=== PATIENT | female | born 1935 | race Caucasian/White ===

== ENCOUNTER 2021-07-21 11:30 | Outpatient (CLI) | payer MEDICARE | END 2021-07-21 11:31 | disposition critical access hospital (66) | LOC: EMS 11:30 | DX: M54.9 Dorsalgia, unspecified (principal); M79.622 Pain in left upper arm | CPT/HCPCS: A0425; A0429 ==

== ENCOUNTER 2021-07-21 11:50 | Emergency (ER) | payer MEDICARE, OTHER ==
[2021-07-21 13:07] LABS: BASOPHILS % (AUTO) 0.5 %; EOSINOPHILS # (AUTO) 0.2 10^3/uL (0.0-0.7); EOSINOPHILS % (AUTO) 2.4 %; HCT - HEMATOCRIT 41.3 % (37.0-47.0); HGB - HEMOGLOBIN 12.8 g/dL (12.0-16.0); LYMPHOCYTES # (AUTO) 1.5 10^3/uL (1.5-3.5); LYMPHOCYTES % (AUTO) 20.5 %; MEAN CORPUSCULAR HEMOGLOBIN 29.6 pg (27.0-31.0); MEAN CORPUSCULAR VOLUME 95.4 fL (81.0-99.0); MEAN PLATELET VOLUME 9.4 fL (7.9-10.8); MONOCYTES # (AUTO) 0.7 10^3/uL (0.0-1.0); NEUTROPHILS % (AUTO) 67.5 %; PLT - PLATELET COUNT 202 10^3/uL (130-450); RED BLOOD COUNT 4.33 10^6/uL (4.20-5.40); RED CELL DISTRIBUTION WIDTH 15.6 % (12.0-15.0); WHITE BLOOD COUNT 7.4 x10^3/uL (4.8-10.8)
--- NOTE | 2021-07-21 13:10 | XRAY Report ---
PROCEDURE: Chest 1 View X-Ray INDICATIONS: Chest Pain TECHNIQUE: One view of the chest was acquired. COMPARISON: None FINDINGS: Surgical changes and devices: Sternal wires and cholecystectomy clips. Lungs and pleura: There is mild appearance of increased vascularity. There is blunting of the costoph renic angles bilaterally. There is increased opacity within the right base. Mediastinum: Mediastinal contours appear normal. Heart size is enlarged. Bones and chest wall: No suspicious bony lesions. Overlying soft tissues appear unremarkable. IMPRESSION: 1. Increased vascular suggestive of edema with likely trace effusions. 2. Increased opacity within the right base suspected to be elevated hemidiaphragm, given positioning of cholecystectomy clips. However, it appears somewhat atypical in focus of consolidation or other ma ss cannot be excluded. Lateral view or CT chest is recommended for further evaluation. Reviewed by: Sherine Rehman MD on 07/21/2021 1:09 PM PDT Approved by: Sherine Rehman MD on 07/21/2021 1:09 PM PDT Station ID: [id number]
--- NOTE | 2021-07-21 13:12 | ED Physician Documentation ---
History of Present Illness - Stated complaint Stated Complaint: WEKANESS - Chief complaint Chief Complaint: Cardiac - History obtained from History obtained from: Patient - History of Present Illness Timing: How many days ago ('couple') - Additonal information Additional information: She is Pam is an 86-year-old woman who presents with complaints that "I do not have a brain anymore". So she says she cannot give me any history does not know where she lives or where she is at currently. She is very pleasant. When asked about pain she said she been having pain for a couple of days and points to the left side of her chest. She took some pills but that did not seem to help at all on if she has had any cardiac history and when asked about the large sternotomy scar on her chest she did not recall what surgery had been performed. She does complain of some coughing and bringing up phlegm but says she has a history of asthma so that is not unusual. Denied vomiting or fever. States that she has been urinating fine. Review of Systems Unable to obtain: Dementia Cardiac: reports: Chest pain / pressure Respiratory: reports: Cough GI: denies: Vomiting PD PAST MEDICAL HISTORY - Past Medical History Past Medical History: Yes Cardiovascular: Congestive heart failure, Arrhythmia, Valve disorder Neuro: Dementia Endocrine/Autoimmune: HyPOthyroidism Psych: Depression, Eating disorder - Past Surgical History Past Surgical History: Yes Cardiovascular: Valve replacement - Allergies Allergies/Adverse Reactions: Allergies Allergy/AdvReac Type Severity Reaction Status Date / Time latex AdvReac Mild Unknown Verified 07/21/21 12:26 Aspirin Allergy Unknown Uncoded 07/21/21 12:26 Lexapro Allergy Unknown Uncoded 07/21/21 12:26 - Social History Does the pt smoke?: No Smoking Status: Never smoker Does the pt drink ETOH?: No Does the pt have substance abuse?: No - Immunizations Immunizations are current?: Yes - POLST Patient has POLST: Yes PD ED PE NORMAL - Vitals Vital signs reviewed: Yes - General General: No acute distress, Other (Pleasant, smiling. Oriented only to person) - HEENT HEENT: Atraumatic, PERRL, EOMI - Neck Neck: No JVD - Cardiac Cardiac: RRR, Other (2/6 systolic murmur) - Respiratory Respiratory: No respiratory distress, Other (cough, coarseness at left base) - Abdomen Abdomen: Soft, Non tender, Non distended - Back Back: Other (Scoliosis) - Derm Derm: Normal color - Extremities Extremities: No deformity, No tenderness to palpate, No edema, Other (No pain with movement of L shoulder) - Neuro Neuro: No motor deficit, No sensory deficit, Normal speech - Psych Psych: Normal mood - Free text exam Free text exam: Patient tender to palpation of L upper anterior chest. No bruising or rash of thorax/chest. Results - Vitals Vitals: Oxygen O2 Source Nasal cannula - EKG (time done) 1237 Rate: Rate (enter#) (79) Rhythm: NSR Ischemia: Non specific changes - Labs Labs: Laboratory Tests 07/21/21 07/21/21 07/21/21 12:55 12:55 12:55 WBC 7.4 RBC 4.33 Hgb 12.8 Hct 41.3 MCV 95.4 MCH 29.6 MCHC 31.0 L RDW 15.6 H Plt Count 202 MPV 9.4 Neut # (Auto) 5.0 Lymph # (Auto) 1.5 [place] # (Auto) 0.7 Eos # (Auto) 0.2 Baso # (Auto) 0.0 Absolute Nucleated RBC 0.00 Nucleated RBC % 0.0 Sodium 142 Potassium 3.7 Chloride 107 Carbon Dioxide 27 Anion Gap 8.0 BUN 13 Creatinine 0.4 Estimated GFR (MDRD) 151 Glucose 96 Calcium 8.8 Total Bilirubin 0.8 AST 19 ALT 15 Alkaline Phosphatase 62 Troponin I High Sens 18.8 H* Total Protein 6.5 L Albumin 3.7 Globulin 2.8 Albumin/Globulin Ratio 1.3 Lipase 38 07/21/21 07/21/21 14:12 15:00 WBC RBC Hgb Hct MCV MCH MCHC RDW Plt Count MPV Neut # (Auto) Lymph # (Auto) [place] # (Auto) Eos # (Auto) Baso # (Auto) Absolute Nucleated RBC Nucleated RBC % Sodium 138 Potassium 3.6 Chloride 102 Carbon Dioxide 28 Anion Gap 8.0 BUN 14 Creatinine 0.4 Estimated GFR (MDRD) 151 Glucose 95 Calcium 8.9 Total Bilirubin AST ALT Alkaline Phosphatase Troponin I High Sens 16.9 H* Total Protein Albumin Globulin Albumin/Globulin Ratio Lipase - Rads (name of study) CXR Radiology: See rad report CT chest Radiology: See rad report PD MEDICAL DECISION MAKING - ED course Complexity details: re-evaluated patient ED course: This is an 86-year-old woman with complaints of left-sided chest pain that is reproducible on exam with palpation. Labs were ordered and her high-sensitivity troponin was slightly elevated at 18 so a 2-hour troponin was with no increase. Her chest x-ray showed an abnormal appearance in the right hemithorax so CT with contrast performed. No mass, only atelectasis and eventration of R hemidiaphragm. Patient still complains of pain after Tylenol but is ready to return back to the long term and was requesting something to eat. Departure - Departure Disposition: 01 Home, Self Care Clinical Impression: Chest wall pain, Atypical chest pain Condition: Good Instructions: ED Chest Pain NonCardiac Follow-Up: [facility] [Provider Group] Comments: Take Tylenol for pain. Follow-up with the primary care provider if the pain persists. Discharge Date/Time: 07/21/21 18:48
[2021-07-21] MEDS ORDERED: ACETAMINOPHEN 325 MG TABLET PO STA (13:15)
[2021-07-21 13:19] LABS: ALBUMIN 3.7 g/dL (3.2-5.5); ALBUMIN/GLOBULIN RATIO 1.3 (1.0-2.2); BILIRUBIN,TOTAL 0.8 mg/dL (0.2-1.0); CALCIUM 8.8 mg/dL (8.5-10.3); CREATININE 0.4 mg/dL (0.4-1.0); POTASSIUM 3.7 mmol/L (3.5-5.0); TOTAL PROTEIN 6.5 g/dL (6.7-8.2)
[2021-07-21 14:29] LABS: CALCIUM 8.9 mg/dL (8.5-10.3); CREATININE 0.4 mg/dL (0.4-1.0); POTASSIUM 3.6 mmol/L (3.5-5.0)
[2021-07-21] MEDS ORDERED: IOPAMIDOL-300 100 ML VIAL ONE (16:15)
[2021-07-21] MEDS ORDERED: IOPAMIDOL-300 100 ML VIAL IVP ONE (16:51)
--- NOTE | 2021-07-21 17:09 | CT Report ---
PROCEDURE: CHEST W INDICATIONS: Pulmonary mass on CXR CONTRAST: IV CONTRAST: Isovue 300 ml: 90 PO CONTRAST: *NO PO CONTRAST TECHNIQUE: After the administration of intravenous contrast, images were acquired from the pulmonary apices to t he posterior costophrenic angles. Multiplanar MIP reformats were acquired. For radiation dose reduc tion, the following was used: automated exposure control, adjustment of mA and/or kV according to pa tient size. COMPARISON: Chest x-ray 07/21/2021 FINDINGS: Image quality: Excellent. Lungs and pleura: There is marked elevation of the right hemidiaphragm. There are areas of lucency id entified along the lateral aspect corresponding to adjacent bowel loops. Dependent changes and areas of small patchy consolidation are noted at the right base. No pleural effusions or pneumothorax. Taylor tral and peripheral airways are patent and normal in caliber. Mediastinum: Heart size is normal. No pericardial effusion. No mediastinal or hilar adenopathy by size criteria. Thoracic aorta and central pulmonary arteries are normal in size. Esophagus is frandy l in caliber. No hiatal hernia. Bones and chest wall: No suspicious bony lesions. No vertebral body compression fractures. No axil jaswinder or supraclavicular adenopathy by size criteria. The thyroid is normal in size and there are no incidental findings.. Abdomen: Visualized upper abdominal solid organs appear normal. Upper abdominal bowel loops are nor mal in caliber. IMPRESSION: 1. Dependent changes with small areas of consolidative opacity within the right base most suggestive atelectasis and/or dependent change. There is a markedly elevated right hemidiaphragm with adjacent b owel loop creating the heterogeneous opacity on chest x-ray. Follow demonstrates significant stool. CLINICAL RECOMMENDATION STATEMENTS: In patients <35 years with an ITN detected on CT, MRI, or extrathyroidal ultrasound, the Committee re commends further evaluation with dedicated thyroid ultrasound if the nodule is ?1 cm and has no suspi cious imaging features, and if the patient has normal life expectancy. In patients ?35 years with an ITN detected on CT, MRI, or extrathyroidal ultrasound, the Committee re commends further evaluation with dedicated thyroid ultrasound if the nodule is ?1.5 cm and has no maury picious imaging features, and if the patient has normal life expectancy. (ACR, 2014) Reviewed by: Sherine Rehman MD on 07/21/2021 5:08 PM PDT Approved by: Sherine Rehman MD on 07/21/2021 5:08 PM PDT Station ID: [id number]
[2021-07-21 18:40] VITALS: BP 116/64
== END 2021-07-21 18:48 | disposition home or self-care (01) ==
LOC: ED 11:50
DX: R07.89 Other chest pain (principal); I50.9 Heart failure, unspecified; F03.90 Unspecified dementia, unspecified severity, without behavioral disturbance, psychotic disturbance, mood disturbance, and anxiety
CPT/HCPCS: 36415; 71045; 71260; 80048; 80053; 83690; 84484; 85025; 93005; 99283; 99284; A9270; Q9967

== ENCOUNTER 2021-07-21 18:48 | Outpatient (CLI) | payer MEDICARE | END 2021-07-21 18:49 | disposition home or self-care (01) | LOC: EMS 18:48 | PROVIDERS: ATTEND Emergency Medicine | DX: R07.89 Other chest pain (principal); R41.0 Disorientation, unspecified | CPT/HCPCS: A0425; A0428 ==

== ENCOUNTER 2021-11-22 15:57 | Outpatient (CLI) | payer MEDICARE, MEDICAID | END 2021-11-22 15:58 | disposition critical access hospital (66) | LOC: EMS 15:57 | DX: Z04.3 Encounter for examination and observation following other accident (principal); M25.551 Pain in right hip | CPT/HCPCS: A0425; A0429 ==

== ENCOUNTER 2021-11-22 16:16 | Emergency (ER) | payer MEDICARE ==
[2021-11-22 16:26] VITALS: BP 105/66
--- NOTE | 2021-11-22 16:34 | ED Physician Documentation ---
PD HPI MAJOR TRAUMA - Stated complaint Stated Complaint: GLF - Chief complaint Chief Complaint: Trauma Ext - History obtained from History obtained from: Patient, EMS - Additional information Additional information: 86yo F BIBA for right hip pain p GLF today at 11am. She has been able to ambulate since. Worse with movement, better with rest. No LOC. PD PAST MEDICAL HISTORY - Past Medical History Cardiovascular: Congestive heart failure, Arrhythmia, Valve disorder Neuro: Dementia Endocrine/Autoimmune: HyPOthyroidism Psych: Depression, Eating disorder - Past Surgical History Past Surgical History: Yes Cardiovascular: Valve replacement - Allergies Allergies/Adverse Reactions: Allergies Allergy/AdvReac Type Severity Reaction Status Date / Time latex AdvReac Mild Unknown Verified 11/22/21 16:26 Aspirin Allergy Unknown Uncoded 11/22/21 16:26 Lexapro Allergy Unknown Uncoded 11/22/21 16:26 - Social History Does the pt smoke?: No Smoking Status: Never smoker Does the pt drink ETOH?: No Does the pt have substance abuse?: No - Immunizations Immunizations are current?: Yes - POLST Patient has POLST: Yes PD ED PE NORMAL - Vitals Vital signs reviewed: Yes - General General: Other (A/O x 2, NAD) - Neck Neck: Supple, no meningeal sign, No bony TTP - Abdomen Abdomen: Normal bowel sounds, Soft, Non tender - Back Back: No CVA TTP, No spinal TTP - Extremities Extremities: Other (FROM R hip, NTTP. Points to the right buttock as the site is site of pain, she does not have pain with palpation in the inguinal ligament or over the hip itself.) Results - Vitals Vitals: Vital Signs - 24 hr 11/22/21 16:22 Temperature 36.0 C L Heart Rate 74 Respiratory 16 Rate Blood Pressure 105/66 O2 Saturation 96 Oxygen O2 Source Room air PD MEDICAL DECISION MAKING - ED course ED course: 86-year-old woman with a fall complains of buttock pain, some concern for hip pathology but x-ray negative. Given the low pretest probability of hip pathology given the site of the buttock is pain and painless internal and external rotation of the hip and normal ambulation, further imaging was entertained but not ordered. Departure - Departure Disposition: 01 Home, Self Care Clinical Impression: Contusion of buttock Qualifiers: Encounter type: initial encounter Qualified Code(s): S30.0XXA - Contusion of lower back and pelvis, initial encounter Condition: Good Record reviewed to determine appropriate education?: Yes Instructions: ED Contusion Lower Ext Comments: X-ray and exam are inconsistent with hip fracture. Return if worsening or if not better over the next couple of days. Tylenol as needed for pain. Discharge Date/Time: 11/22/21 18:16
[2021-11-22] MEDS ORDERED: ACETAMINOPHEN 325 MG TABLET PO STA (16:38)
--- NOTE | 2021-11-22 17:18 | XRAY Report ---
PROCEDURE: Hip w/Pelvis 2-3V RT INDICATIONS: hip inj TECHNIQUE: AP pelvis with lateral view(s) of the right hip(s). COMPARISON: None. FINDINGS: Bones: Generalized well-corticated irregularity can be seen involving the right superior pubic ramus and the right inferior pubic ramus. No definite acute fracture can be seen. There is no hip dislocati on. At least moderate facet degenerative change can be seen, right worse than left. Postoperative change is seen of the lower lumbar spine. Soft tissues: The visualized bowel gas pattern is normal. No suspicious soft tissue calcifications. IMPRESSION: Apparent remote fractures of the right pelvis. No definite acute fracture is seen. Please correlate with focal tenderness. If there is point tenderness (or other clinical concern for a fracture not seen on these plain films) then please consider a dedicated CT study or a short term fo llow up plain film series for further evaluation. Postoperative and degenerative changes are seen. Reviewed by: Fadi Rodriguez MD on 11/22/2021 4:17 PM [place] Approved by: Fadi Rodriguez MD on 11/22/2021 4:17 PM [place] Station ID: [id number]
== END 2021-11-22 18:16 | disposition home or self-care (01) ==
LOC: EDUNIT# → ED 16:16
DX: S30.0XXA Contusion of lower back and pelvis, initial encounter (principal); W18.30XA Fall on same level, unspecified, initial encounter; F03.90 Unspecified dementia, unspecified severity, without behavioral disturbance, psychotic disturbance, mood disturbance, and anxiety
CPT/HCPCS: 73502; 99282; 99283; A9270

== ENCOUNTER 2021-11-22 18:17 | Outpatient (CLI) | payer MEDICARE, MEDICAID | END 2021-11-22 18:18 | disposition home or self-care (01) | LOC: EMS 18:17 | PROVIDERS: ATTEND Emergency Medicine | DX: F03.90 Unspecified dementia, unspecified severity, without behavioral disturbance, psychotic disturbance, mood disturbance, and anxiety (principal); R41.0 Disorientation, unspecified | CPT/HCPCS: A0425; A0428 ==

== ENCOUNTER 2021-11-26 14:38 | Outpatient (CLI) | payer MEDICARE, MEDICAID | END 2021-11-26 14:39 | disposition critical access hospital (66) | LOC: EMS 14:38 | DX: R10.13 Epigastric pain (principal); K59.00 Constipation, unspecified | CPT/HCPCS: A0425; A0429 ==

== ENCOUNTER 2021-11-26 14:56 | Inpatient (IN) | payer MEDICARE, MEDICAID ==
--- NOTE | 2021-11-26 15:20 | ED Physician Documentation ---
History of Present Illness - Stated complaint Stated Complaint: ABD PX - Chief complaint Chief Complaint: Abd Pain - Additonal information Additional information: 86-year-old female presents emergency department for evaluation of epigastric abdominal pain. She reportedly is from [facility] to [facility]. She does have a history of dementia as well as atrial fibrillation, aortic valve replacement and hypothyroidism. POLST form in place shows that she is a DO NOT RESUSCITATE with limited interventions. history is limited secondary to the patient's dementia but she states that her upper abdomen began hurting this afternoon. No apparent fevers or vomiting. Home place may be treating her for constipation currently. Review of Systems Unable to obtain: Dementia Constitutional: denies: Fever, Chills Eyes: reports: Reviewed and negative GI: reports: Abdominal Pain. denies: Nausea, Vomiting PD PAST MEDICAL HISTORY - Past Medical History Cardiovascular: Congestive heart failure, Arrhythmia, Valve disorder Neuro: Dementia Endocrine/Autoimmune: HyPOthyroidism Psych: Depression, Eating disorder - Past Surgical History Past Surgical History: Yes Cardiovascular: Valve replacement - Present Medications Home Medications: Ambulatory Orders Medication Instructions Recorded Confirmed Acetaminophen [Acetaminophen Extra 500 mg PO BID 11/26/21 11/26/21 Strength] Acetaminophen [Acetaminophen Extra 500 mg PO Q8H PRN 11/26/21 11/26/21 Strength] Albuterol Sulfate [Proair 2 puffs INH Q6H PRN 11/26/21 11/26/21 Respiclick] Budesonide/Formoterol Fumarate 2 puffs INH BID 11/26/21 11/26/21 [Symbicort 160-4.5 Mcg Inhaler] Ferrous Sulfate 325 mg PO BIDWM 11/26/21 11/26/21 Gabapentin [Neurontin] 100 mg PO BID 11/26/21 11/26/21 Gabapentin [Neurontin] 100 mg PO DAILY PRN 11/26/21 11/26/21 Levothyroxine Sodium [Synthroid] 88 mcg PO QDAC 11/26/21 11/26/21 Loperamide [Imodium] 2 mg PO QID PRN 11/26/21 11/26/21 Memantine [Namenda] 5 mg PO DAILY 11/26/21 11/26/21 Rivaroxaban [Xarelto] 15 mg PO QDDINNER 11/26/21 11/26/21 Sertraline [Zoloft] 50 mg PO DAILY 11/26/21 11/26/21 - Allergies Allergies/Adverse Reactions: Allergies Allergy/AdvReac Type Severity Reaction Status Date / Time latex AdvReac Mild Unknown Verified 11/26/21 15:13 Aspirin Allergy Unknown Uncoded 11/26/21 15:13 Lexapro Allergy Unknown Uncoded 11/26/21 15:13 - Social History Does the pt smoke?: No Smoking Status: Never smoker Does the pt drink ETOH?: No Does the pt have substance abuse?: No - Immunizations Immunizations are current?: Yes - POLST Patient has POLST: Yes PD ED PE EXPANDED - General General: Alert, No acute distress, Well developed/nourished - Cardiac Cardiac: Regular Rate, Murmur Present, Radial strong equal, Pedal strong equal, Cap refill < 2 sec - Respiratory Respiratory: Clear to ausultation mika. No: Distress, Labored - Abdomen Abdomen: Normal Bowel sounds, Tender to palpation (epigastric without guarding or rebound) - Back Back: Normal exam - Derm Derm: Normal color, Warm and dry. No: Rash - Neuro Neuro: Alert and Oriented X 3, CNII-XII intact - GCS Eye Opening: Spontaneous Motor: Obeys Commands Verbal: Confused Total: 14 Results - Vitals Vitals: Vital Signs - 24 hr 11/26/21 11/26/21 11/26/21 15:08 15:13 17:22 Temperature 36.4 C L 36.5 C Heart Rate 97 88 95 Respiratory 20 14 18 Rate Blood Pressure 101/44 L 101/44 L 106/59 L O2 Saturation 100 99 11/26/21 11/26/21 17:29 17:45 Temperature 37 C 37.1 C Heart Rate 97 89 Respiratory 20 22 Rate Blood Pressure 106/59 L 116/49 L O2 Saturation Oxygen O2 Source Room air - EKG (time done) 1540 Rate: Rate (enter#) (100) Rhythm: Sinus tachycardia, Other (PVC) [place]: RAD QRS: Low voltage Ischemia: ST depression (ST depression noted V3 through V6 most consistent with ischemia.) Compare to prior EKG: Unchanged from prior EKG Computer interpretation: Agree with computer - Labs Labs: Laboratory Tests 11/26/21 11/26/21 11/26/21 15:23 15:23 15:23 WBC 6.6 RBC 1.60 L Hgb 4.8 L* Hct 15.6 L* MCV 97.5 MCH 30.0 MCHC 30.8 L RDW 14.7 Plt Count 259 MPV 9.3 Neut # (Auto) 4.3 Lymph # (Auto) 1.5 [place] # (Auto) 0.6 Eos # (Auto) 0.1 Baso # (Auto) 0.0 Absolute Nucleated RBC 0.02 Nucleated RBC % 0.3 Sodium 138 Potassium 3.6 Chloride 104 Carbon Dioxide 25 Anion Gap 9.0 BUN 23 H Creatinine 0.5 Estimated GFR (MDRD) 117 Glucose 99 Lactic Acid Calcium 8.4 L Total Bilirubin 0.4 AST 18 ALT 14 Alkaline Phosphatase 38 L Lactate Dehydrogenase Troponin I High Sens Total Protein 5.2 L Albumin 3.1 L Globulin 2.1 Albumin/Globulin Ratio 1.5 Lipase 38 TSH 1.63 Urine Color Urine Clarity Urine pH Ur Specific [place] Urine Protein Urine Glucose (UA) Urine Ketones Urine Occult Blood Urine Nitrite Urine Bilirubin Urine Urobilinogen Ur Leukocyte Esterase Urine RBC Urine WBC Ur Squamous Epith Cells Urine Bacteria Ur Microscopic Review Urine Culture Comments Blood Type Blood Type Recheck Antibody Screen Crossmatch IS Only 11/26/21 11/26/21 11/26/21 15:23 15:23 15:23 WBC RBC Hgb Hct MCV MCH MCHC RDW Plt Count MPV Neut # (Auto) Lymph # (Auto) [place] # (Auto) Eos # (Auto) Baso # (Auto) Absolute Nucleated RBC Nucleated RBC % Sodium Potassium Chloride Carbon Dioxide Anion Gap BUN Creatinine Estimated GFR (MDRD) Glucose Lactic Acid 1.3 Calcium Total Bilirubin AST ALT Alkaline Phosphatase Lactate Dehydrogenase Troponin I High Sens 18.6 H* Total Protein Albumin Globulin Albumin/Globulin Ratio Lipase TSH Urine Color Urine Clarity Urine pH Ur Specific [place] Urine Protein Urine Glucose (UA) Urine Ketones Urine Occult Blood Urine Nitrite Urine Bilirubin Urine Urobilinogen Ur Leukocyte Esterase Urine RBC Urine WBC Ur Squamous Epith Cells Urine Bacteria Ur Microscopic Review Urine Culture Comments Blood Type Blood Type Recheck A POSITIVE Antibody Screen Crossmatch IS Only 11/26/21 11/26/21 11/26/21 15:23 15:35 15:55 WBC RBC Hgb Hct MCV MCH MCHC RDW Plt Count MPV Neut # (Auto) Lymph # (Auto) [place] # (Auto) Eos # (Auto) Baso # (Auto) Absolute Nucleated RBC Nucleated RBC % Sodium Potassium Chloride Carbon Dioxide Anion Gap BUN Creatinine Estimated GFR (MDRD) Glucose Lactic Acid Calcium Total Bilirubin AST ALT Alkaline Phosphatase Lactate Dehydrogenase 140 Troponin I High Sens Total Protein Albumin Globulin Albumin/Globulin Ratio Lipase TSH Urine Color YELLOW Urine Clarity CLEAR Urine pH 5.5 Ur Specific [place] 1.015 Urine Protein NEGATIVE Urine Glucose (UA) NEGATIVE Urine Ketones NEGATIVE Urine Occult Blood NEGATIVE Urine Nitrite NEGATIVE Urine Bilirubin NEGATIVE Urine Urobilinogen 0.2 (NORMAL) Ur Leukocyte Esterase TRACE H Urine RBC 0-5 Urine WBC 6-10 H Ur Squamous Epith Cells MOD Squamous H Urine Bacteria None Seen Ur Microscopic Review INDICATED Urine Culture Comments NOT INDICATED Blood Type A POSITIVE Blood Type Recheck Antibody Screen NEGATIVE Crossmatch IS Only See Detail - Rads (name of study) CT abd Radiology: Final report received (Elevation of the right hemidiaphragm and associated right basilar atelectasis. New consolidation right lower lobe. Findings are suggestive of pneumonia. Colonic diverticulosis without otitis. Mild miliary ductal dilation similar to previous study. Small left lower lobe pulmonary nodule measurin) PD MEDICAL DECISION MAKING - ED course Complexity details: reviewed results, re-evaluated patient, d/w patient, d/w family ED course: 86-year-old female who has a history of dementia presents the emergency department for evaluation of acute abdominal pain that began today. She is anticoagulated secondary to a history of atrial fib on Xarelto. Screening EKG does show some diffuse ischemic changes with ST depressions V2 through V6. Her initial hemoglobin is noted to be 4.8. Digital rectal exam does reveal kirill melena. This likely represents acute GI bleed in the setting of anticoagulation. She is a DNR with limited interventions. I did discuss this ED visit with her niece who resides in [place]. Though she does have advanced dementia she otherwise has a good quality of life and she would be okay with blood transfusion as well as endoscopy if indicated for further evaluation and manag ement of her anemia. CT of the abdomen pelvis without acute surgical findings though it is suggestive of a pneumonia. 1630: I have spoken with Dr. Jean Baptiste who graciously agrees to admit the patient. Surgical consult at the behest of the admission hospitalist if desired, though I have briefly discussed this case with mental health consultant surgeon Dr. Caicedo. Respiratory PCR panel is pending. Departure - Departure Disposition: 66 [facility] DC/Xfer Clinical Impression: GIB (gastrointestinal bleeding) Qualifiers: GI bleed type/associated pathology: melena Qualified Code(s): K92.1 - Melena Anemia Qualifiers: Anemia type: other cause Other causes of anemia: other cause, not classified Qualified Code(s): D64.89 - Other specified anemias
[2021-11-26 15:36] LABS: BASOPHILS % (AUTO) 0.6 %; EOSINOPHILS # (AUTO) 0.1 10^3/uL (0.0-0.7); LYMPHOCYTES # (AUTO) 1.5 10^3/uL (1.5-3.5); LYMPHOCYTES % (AUTO) 22.3 %; MEAN CORPUSCULAR HGB CONC 30.8 g/dL (32.0-36.0); MEAN CORPUSCULAR VOLUME 97.5 fL (81.0-99.0); MEAN PLATELET VOLUME 9.3 fL (7.9-10.8); MONOCYTES # (AUTO) 0.6 10^3/uL (0.0-1.0); MONOCYTES % (AUTO) 9.2 %; NEUTROPHILS # (AUTO) 4.3 10^3/uL (1.5-6.6); NEUTROPHILS % (AUTO) 65.6 %; NRBC ABSOLUTE COUNT (AUTO) 0.02 x10^3/uL; NUCLEATED RED BLOOD CELLS AUTO 0.3 /100WBC; PLT - PLATELET COUNT 259 10^3/uL (130-450); RED CELL DISTRIBUTION WIDTH 14.7 % (12.0-15.0); WHITE BLOOD COUNT 6.6 x10^3/uL (4.8-10.8)
[2021-11-26 15:41] LABS: HCT - HEMATOCRIT 15.6 % (37.0-47.0); HGB - HEMOGLOBIN 4.8 g/dL (12.0-16.0)
[2021-11-26 15:44] LABS: ALBUMIN 3.1 g/dL (3.2-5.5); ALBUMIN/GLOBULIN RATIO 1.5 (1.0-2.2); BILIRUBIN,TOTAL 0.4 mg/dL (0.2-1.0); CALCIUM 8.4 mg/dL (8.5-10.3); CREATININE 0.5 mg/dL (0.4-1.0); POTASSIUM 3.6 mmol/L (3.5-5.0); TOTAL PROTEIN 5.2 g/dL (6.7-8.2)
[2021-11-26 15:47] LABS: BILIRUBIN,URINE NEGATIVE (NEGATIVE); GLUCOSE, URINE (UA) NEGATIVE (NEGATIVE); KETONES,URINE (UA) NEGATIVE (NEGATIVE); LEUKOCYTE ESTERASE, URINE TRACE (NEGATIVE); NITRITE,URINE NEGATIVE (NEGATIVE); OCCULT BLOOD,URINE NEGATIVE (NEGATIVE); PH,URINE 5.5 PH (5.0-7.5); PROTEIN,URINE NEGATIVE (NEGATIVE); UROBILINOGEN,URINE 0.2 (NORMAL) E.U./dL (NORMAL)
[2021-11-26 15:51] LABS: CLARITY,URINE CLEAR (CLEAR)
[2021-11-26 16:16] LABS: BACTERIA,URINE None Seen /HPF (None Seen); RBC,URINE 0-5 /HPF (0-5); SQUAMOUS EPITHELIAL CELL,UR MOD Squamous (<= Few)
[2021-11-26] MEDS ORDERED: PANTOPRAZOLE 80 MG in SODIUM CHLORIDE 0.9% 100ML 100 ML IV STA (16:19)
[2021-11-26] MEDS ORDERED: PANTOPRAZOLE 40 MG VIAL IVP STA (16:19)
[2021-11-26] MEDS ORDERED: iohexoL-300 100 ML VIAL ONE (16:39)
[2021-11-26] MEDS ORDERED: ONDANSETRON 4 MG/2 ML VIAL IVP PRN (17:06)
[2021-11-26] MEDS ORDERED: SODIUM CHLORIDE FLUSH 0.9% 10 ML SYRINGE IVP PRN (17:06)
--- NOTE | 2021-11-26 17:26 | HISTORY & PHYSICAL EXAMINATION ---
Chief Complaint - Chief Complaint Chief Complaint: epigastric pain History of Present Illness - Admitted From Admitted From:: medical floor - History Obtained From Records Reviewed: [facility] and ER notes History obtained from: pt and [facility] Exam Limitations: limited to pt's dementia - History of Present Illness HPI Comment/Other: This is a 86-year-old female with a past medical significant for dementia, atrial fibrillation on Xarelto, aortic valve disease with replacement, hypothyroidism, CHF and arrhythmia who presents emergency department for evaluation of epigastric abdominal pain. Pt's history is limited due to the patient's medical condition with hx of dementia. She is from [facility]. she report she had upper abdomen pain beginning at this afternoon. Pt reports her abdominal pain was worsening with movement. Pt reports she had constipation over the last couple days. she denies nausea or vomiting. Routine laboratory test in the ER show patient had a hemoglobin 4.8, she had 12.8 four months ago. Digital rectal exam does reveal kirill melena. pt took Xarelto at home. CT of abdomen is pending. Surgery was called for consultation of GI bleed. pt's POLST form in home place shows that she is a DO NOT RESUSCITATE with limited interventions. History - Past Medical History Cardiovascular: reports: Congestive heart failure, Arrhythmia, Valve disorder Neuro: reports: Dementia Endocrine/Autoimmune: reports: HyPOthyroidism Psych: reports: Depression, Eating disorder - Past Surgical History Cardiovascular: reports: Valve replacement - Family & Social History Family History Comment/Other: Patient could not answer her family medical history due to her history of dementia Social History Notes: Patient could not answer her social history dueTo her history of dementia - POLST Patient has POLST: Yes Meds/Allgy - Home Medications Home Medications: Ambulatory Orders Medication Instructions Recorded Confirmed Acetaminophen [Acetaminophen Extra 500 mg PO BID 11/26/21 11/26/21 Strength] Acetaminophen [Acetaminophen Extra 500 mg PO Q8H PRN 11/26/21 11/26/21 Strength] Albuterol Sulfate [Proair 2 puffs INH Q6H PRN 11/26/21 11/26/21 Respiclick] Budesonide/Formoterol Fumarate 2 puffs INH BID 11/26/21 11/26/21 [Symbicort 160-4.5 Mcg Inhaler] Ferrous Sulfate 325 mg PO BIDWM 11/26/21 11/26/21 Gabapentin [Neurontin] 100 mg PO BID 11/26/21 11/26/21 Gabapentin [Neurontin] 100 mg PO DAILY PRN 11/26/21 11/26/21 Levothyroxine Sodium [Synthroid] 88 mcg PO QDAC 11/26/21 11/26/21 Loperamide [Imodium] 2 mg PO QID PRN 11/26/21 11/26/21 Memantine [Namenda] 5 mg PO DAILY 11/26/21 11/26/21 Rivaroxaban [Xarelto] 15 mg PO QDDINNER 11/26/21 11/26/21 Sertraline [Zoloft] 50 mg PO DAILY 11/26/21 11/26/21 - Allergies Allergies/Adverse Reactions: Allergies Allergy/AdvReac Type Severity Reaction Status Date / Time latex AdvReac Mild Unknown Verified 11/26/21 15:13 aspirin AdvReac Unknown Verified 11/26/21 18:07 escitalopram [From Lexapro] AdvReac Unknown Verified 11/26/21 18:07 Review of Systems - Constitutional Constitutional: denies: Fever, Chills - Cardiovascular Cariovascular: denies: Chest pain, Syncope - Respiratory Respiratory: denies: Cough, SOB at rest, SOB with exertion - Gastrointestinal Gastrointestinal: reports: Abdominal pain, Constipation. denies: Diarrhea, Nausea, Vomiting - Genitourinary Genitourinary: denies: Dysuria - Neurological Neurological: denies: Headache, Numbness, Seizures, Slurred speech Exam - Vital Signs Vital Signs: Vital Signs x48h Temp Pulse Resp BP Pulse Ox 11/26/21 17:22 36.5 C 95 18 106/59 L 11/26/21 15:13 88 14 101/44 L 99 11/26/21 15:08 36.4 C L 97 20 101/44 L 100 - Physical Exam General Appearance: positive: No acute distress, Alert. negative: Lethargic Eyes Bilateral: positive: Normal inspection, No lid inflammation ENT: positive: ENT inspection nml. negative: Purulent nasal drainage Neck: positive: Nml inspection, Trachea midline. negative: Tracheal deviation Respiratory: positive: Chest non-tender, No respiratory distress. negative: Wheezes Cardiovascular: positive: Regular rate & rhythm. negative: Tachycardia, Bradycardia, Systolic murmur Peripheral Pulses: positive: 2+ Abdomen: positive: Non-tender, Nml bowel sounds, No distention Back: positive: Nml inspection Skin: positive: Color nml, Warm, Dry Extremities: positive: Non-tender, Nml appearance Neurologic/Psychiatric: positive: Sensation nml. negative: Weakness, Sensory loss, Facial droop, Slurred/abnml speech Conclusion/Plan - Problem List (1) GI bleed Conclusion/Plan: pt's Hemoglobin is 4.8 today, Occult test is positive for GI bleed. pt took Xarelto for her afib. GI surgeon was already consulted, hope to have EGD on samantha . ER order blood transfusion for pt. we will hold Xarelto, H&H monitor hemoglobin, Protonix intravenous twice daily. (2) Anemia Conclusion/Plan: Patient is a hemoglobin of 4.8, it is likely caused by an acute blood loss from GI bleed. pt had HGB 12.8 about 4 months ago. We will transfusion of blood for patient, continue H&H monitor patient, hold home Xarelto, also order anemia study for pt. (3) Hypothyroidism Conclusion/Plan: We will resume home Synthroid, we will check a TSH (4) Dementia Conclusion/Plan: Patient has a history of dementia, we will resume home medications (5) COPD (chronic obstructive pulmonary disease) Conclusion/Plan: Patient has a history of asthma with COPD, pt has 95% sat on room air. We have albuterol, pulmocort, DuoNeb as needed for pt, add Azithromycin. (6) Epigastric abdominal pain Conclusion/Plan: Patient report epigastric pain. CT of the abdomen concern A new region of consolidation in the right lower lobe suggestive of pneumonia. Clinically kamini ent has no respiratory distress, WBC is in the normal range. We will closely monitor patient respiratory status, Started with pulmicord, albuterol and DuoNeb, and azithromycin for patient's COPD. Covid 19 test is pending. We will continue Protonix intravenous twice daily. - Lab Results Fish Bones: 11/26/21 15:23 11/26/21 15:23 Core Measures - Anticipated LOS I expect patient to be DC'd or transferred within 96 hours.: Yes - DVT/VTE - Prophylaxis VTE/DVT Device ordered at admit?: Yes VTE/DVT Prophylaxis med ordered at admit?: Yes
--- NOTE | 2021-11-26 17:29 | CT Report ---
PROCEDURE: Abdomen/Pelvis W INDICATIONS: abd pain CONTRAST: IV CONTRAST: Isovue 300 ml: 100 PO CONTRAST: *NO PO CONTRAST TECHNIQUE: After the administration of intravenous contrast, 5 mm thick sections acquired from the diaphragms to the symphysis. 5 mm thick coronal and sagittal reformats were acquired. For radiation dose reducti on, the following was used: automated exposure control, adjustment of mA and/or kV according to kamini ent size. COMPARISON: CT chest 07/21/2021.. FINDINGS: Image quality: Excellent. ABDOMEN: Lung bases: There is a small right pleural effusion with associated compressive atelectasis. Elevatio n of the right hemidiaphragm is demonstrated with associated right basilar atelectasis as well as a r egion of consolidation of the right lower lobe anteriorly which is new compared to the prior study. A telectasis is also demonstrated within the left lower lobe. There is a small pulmonary nodule in the left lower lobe measuring up to 0.5 cm on series 6 image 16 which is increased in prominence on the p rior study. Heart size is normal. There is a small hiatal hernia. Solid organs: There is a lobulated cyst within the left hepatic lobe measuring up to 1.7 cm redemonst rated. Gallbladder is surgically absent. There is mild biliary ductal dilatation, with the common mika e duct measuring up to approximately 0.9 cm. No discrete obstructing calcified stone or discrete mass visualized. Findings likely reflect sequelae of prior post cystectomy. The spleen is normal in size. Pancreas enhances normally without peripancreatic fat stranding or fluid collections. No pancreatic duct dilatation. No adrenal nodules. Kidneys demonstrate no hydronephrosis. Peritoneum and bowel: There is suggestion of mild gastric wall thickening although evaluation is limi elizabeth by partial distention of the stomach. Small and large bowel loops demonstrate normal wall thickne ss and caliber. There is colonic diverticulosis without acute diverticulitis. No pericecal plantar ch anges to suggest appendicitis. No free fluid or air. Nodes and vessels: No retroperitoneal or mesenteric adenopathy by size criteria. Aorta and inferior vena cava are normal in size. There is extensive atherosclerotic vascular calcification. Miscellaneous: No ventral hernias. PELVIS: Genitourinary: Bladder wall thickness is normal. Miscellaneous: No inguinal hernias or adenopathy. Bones: No suspicious bony lesions. No vertebral body compression fractures. There is an S-shaped sc oliosis of the spine with a levoscoliosis of the thoracolumbar spine and mild scoliosis of the lower lumbar spine. There are old healed fractures demonstrated in the bony pelvis involving the right supe rior and inferior pubic rami. IMPRESSION: 1. Elevation of the right hemidiaphragm redemonstrated with associated right basilar atelectasis. In addition, there is a new region of consolidation in the right lower lobe anteriorly which is new comp ared to the prior study. Findings are suggestive of pneumonia. 2. No definite acute inflammatory changes in the abdomen or pelvis. 3. Colonic diverticulosis without acute diverticulitis. 4. Mild biliary ductal dilatation appears similar to the prior study where visualized. The findings a re nonspecific but likely reflect sequelae of prior cholecystectomy. 5. Small left lower lobe pulmonary nodule measuring up to 0.5 cm is increased in prominence compared to the prior study. Recommend a short-term follow-up chest CT to demonstrate stability. Reviewed by: Kris Pierce MD on 11/26/2021 5:28 PM PST Approved by: Kris Pierce MD on 11/26/2021 5:28 PM PST Station ID: [id number]
[2021-11-26] MEDS ORDERED: METOPROLOL 5 MG/5 ML VIAL IVP PRN (17:52)
[2021-11-26 17:53] LABS: % IRON SATURATION 5 % (20-50); IRON 24 ug/dL (28-170); TOTAL IRON BINDING CAPACITY 452 ug/dL (250-450); TRANSFERRIN 323 mg/dL (192-382)
[2021-11-26 17:57] LABS: FERRITIN 6.9 ng/mL (11.0-306.8)
[2021-11-26] MEDS ORDERED: GABAPENTIN 100 MG CAPSULE PO PRN (18:08)
[2021-11-26] MEDS ORDERED: IPRATROPIUM/ALBUTEROL 3 ML NEB INH PRN (18:10)
[2021-11-26] MEDS ORDERED: ALBUTEROL NEB 2.5 MG/3 ML INH PRN (18:10)
[2021-11-26 18:43] LABS: B. PARAPERTUSSIS- RESP PCR PAN NOT DETECTED; B. PERTUSSIS- RESP PCR PANEL NOT DETECTED; C. PNEUMONIAE- RESP PCR PANEL NOT DETECTED; CORONAVIRUS 229E-RESP PCR NOT DETECTED; CORONAVIRUS HKU1-RESP PCR NOT DETECTED; CORONAVIRUS NL63-RESP PCR NOT DETECTED; CORONAVIRUS OC43-RESP PCR NOT DETECTED; HUMAN METAPNEUMOVIRUS NOT DETECTED; INFLUENZA A- RESP PCR PANEL NOT DETECTED; INFLUENZA B - RESP PCR PANEL NOT DETECTED; M. PNEUMONIAE- RESP PCR PANEL NOT DETECTED; PARAINFLUENZA VIRUS 1 NOT DETECTED; PARAINFLUENZA VIRUS 2 NOT DETECTED; PARAINFLUENZA VIRUS 3 NOT DETECTED; PARAINFLUENZA VIRUS 4 NOT DETECTED; RHINOVIRUS/ENTEROVIRUS NOT DETECTED; RSV- RESP PCR PANEL NOT DETECTED; SARS-CoV-2 -RESP PCR PANEL NOT DETECTED
[2021-11-26] MEDS ORDERED: ALBUTEROL NEB 2.5 MG/3 ML INH ONE (18:45)
[2021-11-26] MEDS: BUDESONIDE 0.5 MG/2 ML NEB INH SCH (19:36)
[2021-11-26] MEDS ORDERED: iohexoL-300 100 ML VIAL IVP ONE (20:13)
[2021-11-26] MEDS: AZITHROMYCIN 250 MG TABLET PO SCH (20:14)
[2021-11-26] MEDS: PANTOPRAZOLE 40 MG VIAL IVP SCH (20:15)
[2021-11-26] MEDS: GABAPENTIN 100 MG CAPSULE PO SCH (20:15)
[2021-11-27 00:54] LABS: HCT - HEMATOCRIT 21.6 % (37.0-47.0); MEAN CORPUSCULAR HEMOGLOBIN 29.2 pg (27.0-31.0); MEAN CORPUSCULAR HGB CONC 31.5 g/dL (32.0-36.0); MEAN CORPUSCULAR VOLUME 92.7 fL (81.0-99.0); MEAN PLATELET VOLUME 9.3 fL (7.9-10.8); RED BLOOD COUNT 2.33 10^6/uL (4.20-5.40); RED CELL DISTRIBUTION WIDTH 16.9 % (12.0-15.0); WHITE BLOOD COUNT 8.1 x10^3/uL (4.8-10.8)
[2021-11-27 00:57] LABS: HGB - HEMOGLOBIN 6.8 g/dL (12.0-16.0)
[2021-11-27] MEDS ORDERED: SODIUM CHLORIDE 0.9% 1,000 ML IV SCH (01:00)
[2021-11-27] MEDS: SODIUM CHLORIDE FLUSH 0.9% 10 ML SYRINGE IVP SCH ×3 (02:08→18:16)
[2021-11-27] MEDS: ACETAMINOPHEN 325 MG TABLET PO PRN ×2 (02:09→22:08)
[2021-11-27 03:11] LABS: ABSOLUTE RETICS # AUTO 0.118 10^6/uL (0.020-0.110); RED BLOOD COUNT 2.67 10^6/uL (4.20-5.40); RETICULOCYTE COUNT % (AUTO) 4.43 % (0.5-2.3)
[2021-11-27 06:26] LABS: BASOPHILS # (AUTO) 0.1 10^3/uL (0.0-0.1); BASOPHILS % (AUTO) 0.6 %; EOSINOPHILS # (AUTO) 0.2 10^3/uL (0.0-0.7); EOSINOPHILS % (AUTO) 2.4 %; HCT - HEMATOCRIT 24.8 % (37.0-47.0); HGB - HEMOGLOBIN 7.8 g/dL (12.0-16.0); LYMPHOCYTES # (AUTO) 1.9 10^3/uL (1.5-3.5); LYMPHOCYTES % (AUTO) 22.6 %; MEAN CORPUSCULAR HEMOGLOBIN 28.4 pg (27.0-31.0); MEAN CORPUSCULAR HGB CONC 31.5 g/dL (32.0-36.0); MEAN CORPUSCULAR VOLUME 90.2 fL (81.0-99.0); MEAN PLATELET VOLUME 9.6 fL (7.9-10.8); MONOCYTES # (AUTO) 0.7 10^3/uL (0.0-1.0); MONOCYTES % (AUTO) 8.7 %; NEUTROPHILS # (AUTO) 5.4 10^3/uL (1.5-6.6); NEUTROPHILS % (AUTO) 65.3 %; PLT - PLATELET COUNT 266 10^3/uL (130-450); RED BLOOD COUNT 2.75 10^6/uL (4.20-5.40); RED CELL DISTRIBUTION WIDTH 17.2 % (12.0-15.0); WHITE BLOOD COUNT 8.3 x10^3/uL (4.8-10.8)
[2021-11-27 06:34] LABS: CALCIUM 8.4 mg/dL (8.5-10.3); CREATININE 0.5 mg/dL (0.4-1.0); POTASSIUM 3.5 mmol/L (3.5-5.0)
[2021-11-27] MEDS: LEVOTHYROXINE 88 MCG TABLET PO SCH (06:55)
[2021-11-27] MEDS ORDERED: CYANOCOBALAMIN 1,000 MCG/ML VIAL IM ONE (07:17)
[2021-11-27] MEDS ORDERED: D5.45NS W/20 MEQ KCL 1,000 ML IV SCH (08:00)
[2021-11-27] MEDS ORDERED: FERROUS GLUCONATE 324 MG TABLET PO SCH (08:00)
--- NOTE | 2021-11-27 08:48 | XRAY Report ---
PROCEDURE: Chest 1 View X-Ray INDICATIONS: sob TECHNIQUE: One view of the chest was acquired. COMPARISON: Chest x-ray 07/21/2021 FINDINGS: Surgical changes and devices: Sternal wires. Lungs and pleura: There is blunting of the right costophrenic angle as well as right basilar opacity. Increased interstitial markings are present. Mediastinum: Mediastinal contours appear normal. Hear t size is enlarged. Bones and chest wall: No suspicious bony lesions. Overlying soft tissues appear unremarkable. IMPRESSION: Mild right effusion. Underlying superimposed areas of consolidation pest control service representative of pneumonia, atel ectasis or other mass cannot be excluded. Increased vascularity is present consistent with edema. Reviewed by: Sherine Rehman MD on 11/27/2021 8:46 AM PST Approved by: Sherine Rehman MD on 11/27/2021 8:46 AM [facility] Station ID: [id number]
[2021-11-27] MEDS: BUDESONIDE 0.5 MG/2 ML NEB INH SCH ×2 (09:08→17:31)
[2021-11-27] MEDS: MEMANTINE 5 MG TABLET PO SCH (10:02)
[2021-11-27] MEDS: AZITHROMYCIN 250 MG TABLET PO SCH (10:02)
[2021-11-27] MEDS: SERTRALINE 50 MG TABLET PO SCH (10:03)
[2021-11-27] MEDS: GABAPENTIN 100 MG CAPSULE PO SCH ×2 (10:03→22:08)
[2021-11-27] MEDS: FERROUS SULFATE 325 MG TABLET PO SCH ×2 (10:04→18:09)
[2021-11-27] MEDS: PANTOPRAZOLE 40 MG VIAL IVP SCH (10:05)
[2021-11-27 11:11] LABS: HCT - HEMATOCRIT 25.4 % (37.0-47.0); HGB - HEMOGLOBIN 8.1 g/dL (12.0-16.0)
--- NOTE | 2021-11-27 14:00 | Discharge Plan ---
"Discharge Plan for SNF / [place] - Discharge Plan And Transition Orders Problem Reviewed?: Yes Disposition: 03 SNF DC/Xfer Condition: Stable Allergies and Adverse Reactions: Allergies Allergy/AdvReac Type Severity Reaction Status Date / Time latex AdvReac Mild Unknown Verified 11/26/21 15:13 aspirin AdvReac Unknown Verified 11/26/21 18:07 escitalopram [From Lexapro] AdvReac Unknown Verified 11/26/21 18:07 Health Concerns: GI bleeding, anemia Plan of Treatment: you have no more GI bleed, you have normal color bowel movement, and your HGB increased. Your home Xarelto medication is holding now. It is likely Xarelto blood thinner cause your GI bleed. You may followup with your PCP in one week, recheck your HGB, discuss the time to resume blood thinner or continuing of holding your blood thinner as medical Necessary. You may followup with your PCP to arrange to have EGD in 2 months. You are also prescribed Protonix. You were found to have significant anemia. You had two units of blood transfusion in the hospital. Your HGB is stable and increased now. You are found Iron deficiency anemia. You may continue to have iron pill as your home medication. You were given B12 for your B12 Deficiency in the hospital. Care Goals: Stabilization and improvement of your medical conditions Assessment: Discussed the care plan with you and your DPOA, Answered your questions, you understood - SNF / [place] Transition Orders Admit to (Facility): [facility] Under the care of (Name): Medical provider of [facility] Discharge Diagnosis: GI bleed, anemia, dementia, Hypothyroidism, Asthma with COPD Medicare Certification Statement: I do not certify that Post Hospital fpc care is medically necessary on a continuing basis for any of the conditions for which she/he is receiving care during hospitalization. Notify PCP of admission and forward orders to primary provider for signature. Weight on admission and: Weekly Call PCP immediately if weight increases by: 2 kg Other Notification Orders: Call PCP immediately if patient develops dyspnea, chest pain/tightness or edema. House Bowel Program: Yes Additional Bowel Program Orders: If no BM after 2 days, nurse may give M.O.M. 30ml PO PRN and/or ducolax Supp 1 UT and/or GILES 250mg P.O., and/or senna 1-2 tabs PO. On day 3 nurse may give repeat above order until residents constipation is resolved. Annual Influenza Vaccine (between Jul 08 and February 04): Yes Two-step PPD per [facility] [id number] or approved exception documents: Yes Treatments & Other Orders: you have no more GI bleed, you have normal color lou l movement, and your HGB increased. Your home Xarelto medication is holding now. It is likely Xarelto blood thinner cause your GI bleed. You may followup with your PCP in one week, recheck your HGB, discuss the time to resume blood thinner or continuing of holding your blood thinner as medical Necessary. You may followup with your PCP to arrange to have EGD in 2 months. You are also prescribed Protonix. You were found to have significant anemia. You had two units of blood transfusion in the hospital. Your HGB is stable and increased now. You are found Iron deficiency anemia. You may continue to have iron pill as your home medication. You were given B12 for your B12 Deficiency in the hospital. Medication Orders: PLEASE REFER TO THE DISCHARGE MEDICATION LIST. Insulin Orders?: No - Medications New Prescriptions: Pantoprazole [Protonix] 40 mg PO DAILY #30 tablet Azithromycin [Zithromax] 250 mg PO DAILY #4 tablet - Diet Type: Geriatric Texture: Regular Liquids: Thin May have monthly special meal: Yes - Therapies | Activity Activity: Activity as Tolerated"
--- NOTE | 2021-11-27 14:15 | DISCHARGE SUMMARY ---
Discharge Summary Admit Date: 11/26/21 Discharge Date: 11/27/21 Discharging Provider: Pavel Warren Condition at Discharge: Stable Discharge Disposition: SNF DC/Xfer Discharge Facility Name: [facility] - DIAGNOSES Discharge Diagnoses with Status of Each Condition: CT of abdomen discussed with surgeon, Dr Caicedo, he advise pt can be d/c, no EGD, on today. - ALLERGIES Allergies/Adverse Reactions: Allergies Allergy/AdvReac Type Severity Reaction Status Date / Time latex AdvReac Mild Unknown Verified 11/26/21 15:13 aspirin AdvReac Unknown Verified 11/26/21 18:07 escitalopram [From Lexapro] AdvReac Unknown Verified 11/26/21 18:07 - MEDICATIONS Home Medications: Ambulatory Orders Medication Instructions Recorded Confirmed Acetaminophen [Acetaminophen Extra 500 mg PO BID 11/26/21 11/26/21 Strength] Acetaminophen [Acetaminophen Extra 500 mg PO Q8H PRN 11/26/21 11/26/21 Strength] Albuterol Sulfate [Proair 2 puffs INH Q6H PRN 11/26/21 11/26/21 Respiclick] Budesonide/Formoterol Fumarate 2 puffs INH BID 11/26/21 11/26/21 [Symbicort 160-4.5 Mcg Inhaler] Ferrous Sulfate 325 mg PO BIDWM 11/26/21 11/26/21 Gabapentin [Neurontin] 100 mg PO BID 11/26/21 11/26/21 Gabapentin [Neurontin] 100 mg PO DAILY PRN 11/26/21 11/26/21 Levothyroxine Sodium [Synthroid] 88 mcg PO QDAC 11/26/21 11/26/21 Loperamide [Imodium] 2 mg PO QID PRN 11/26/21 11/26/21 Memantine [Namenda] 5 mg PO DAILY 11/26/21 11/26/21 Sertraline [Zoloft] 50 mg PO DAILY 11/26/21 11/26/21 Azithromycin [Zithromax] 250 mg PO DAILY #4 tablet 11/27/21 Pantoprazole [Protonix] 40 mg PO DAILY #30 tablet 11/27/21 - LABS Result Diagrams: 11/27/21 11:09 11/27/21 06:09
[2021-11-27 15:11] LABS: HGB - HEMOGLOBIN 7.9 g/dL (12.0-16.0)
--- NOTE | 2021-11-27 15:43 | PROVIDER PROGRESS NOTE ---
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 Called Surgeon Dr. Genao again, pt likely need to have EGD on tomorrow. NPO after midnight, IVF, continue H&H and Portonix pt's Hemoglobin is 4.8 today, Occult test is positive for GI bleed. pt took Xarelto for her afib. GI surgeon was already consulted, hope to have EGD on tomorrow. ER order blood transfusion for pt. we will hold Xarelto, H&H monitor hemoglobin, Protonix intravenous twice daily. (2) Anemia Conclusion/Plan: 11/27 HGB is slight drop, pt also has Iron deficiency and B12 deficiency. pt Was given iron and B12 injection, Continue H&H Patient is a hemoglobin of 4.8, it is likely caused by an acute blood loss from GI bleed. pt had HGB 12.8 about 4 months ago. We will transfusion of blood for patient, continue H&H monitor patient, hold home Xarelto, also order anemia study for pt. 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 continue breath treatment, continue Azithromycin Patient has a history of asthma with COPD, pt has 95% sat on room air. We have albuterol, pulmocort, DuoNeb as needed for pt, add Azithromycin. (6) lung nodule Conclusion/Plan: 11/27 small left lower lobe pulmonary nodule measuring up to 5 mm is increased in prominence compared to the prior study, recommend a short term chest CT to demonstrate stability. pt also report her abdominal pain is significantly improved. - Current Meds Current Meds: Current Medications Generic Name Dose Route Start Last Admin Trade Name Freq PRN Reason Stop Dose Admin Acetaminophen 650 mg 11/26/21 17:06 11/27/21 02:09 Acetaminophen 325 Mg Tablet PO 650 mg Q4HR PRN Administration Pain 1 to 4 Albuterol/Ipratropium 3 ml 11/26/21 18:10 11/27/21 02:14 Ipratropium/Albuterol 3 Ml Neb INH 3 ml Q6HR PRN Administration Wheezing Azithromycin 250 mg 11/26/21 18:44 11/27/21 10:02 Azithromycin 250 Mg Tablet PO 250 mg DAILY MARAL Administration Budesonide 0.5 mg 11/26/21 19:00 11/27/21 09:08 Budesonide 0.5 Mg/2 Ml Neb INH 0.5 mg RTBID MARAL Administration Ferrous Sulfate 325 mg 11/27/21 08:00 11/27/21 10:04 Ferrous Sulfate 325 Mg Tablet PO 325 mg BIDWM MARAL Administration Gabapentin 100 mg 11/26/21 21:00 11/27/21 10:03 Gabapentin 100 Mg Capsule PO 100 mg BID MARAL Administration Potassium Chloride/Dextrose/Sod Cl 1,000 mls @ 83.333 mls/hr 11/27/21 08:00 11/27/21 10:04 D5.45ns W/20 Meq Kcl IV 11/28/21 07:59 83.333 mls/hr .Q12H MARAL Administration Levothyroxine Sodium 88 mcg 11/27/21 07:00 11/27/21 06:55 Levothyroxine 88 Mcg Tablet PO 88 mcg QDAC MARAL Administration Memantine 5 mg 11/27/21 09:00 11/27/21 10:02 Memantine 5 Mg Tablet PO 5 mg DAILY MARAL Administration Pantoprazole Sodium 40 mg 11/26/21 21:00 11/27/21 10:05 Pantoprazole 40 Mg Vial IVP 40 mg BID MARAL Administration Sertraline HCl 50 mg 11/27/21 09:00 11/27/21 10:03 Sertraline 50 Mg Tablet PO 50 mg DAILY MARAL Administration Sodium Chloride 10 ml 11/26/21 17:06 11/27/21 02:09 Sodium Chloride Flush 0.9% 10 Ml Syringe IVP 10 ml PRN PRN Administration NEEDED PER PROVIDER ORDERS Sodium Chloride 10 ml 11/27/21 01:00 11/27/21 10:05 Sodium Chloride Flush 0.9% 10 Ml Syringe IVP 10 ml 0100,0900,1700 MARAL Administration - Lab Result Fish Bone Diagrams: 11/27/21 15:05 11/27/21 06:09 - Additional Planning My Orders: My Active Orders 11/26/21 17:06 Activity Orders [RC] Q2HR IO [RC] IOSHIFT Initiate Bowel Care Protocol [RC] .protocol Initiate Line Care Protocol [RC] QSHIFT Initiate Personal Care Protoco [RC] .protocol Telemetry (24 Hour) [RC] Q4HR Vital Signs [RC] 0800,1600,0000 Acetaminophen [Tylenol] 650 mg PO Q4HR PRN Ondansetron Inj [Zofran Inj] 4 mg IVP Q6HR PRN Sodium Chloride Flush 0.9% [Normal Saline Flush 0.9%] 10 ml IVP PRN PRN Code Status [OTHERS] Routine Condition of Patient [OTHERS] Routine DVT Prophylaxis [OTHERS] Routine 11/26/21 17:10 SCDs [RC] QSHIFT 11/26/21 17:15 General Surgery Consult [CONS] Routine 11/26/21 17:52 Metoprolol Inj [Lopressor Inj] 5 mg IVP Q6H PRN 11/26/21 18:08 Gabapentin [Neurontin] 100 mg PO DAILY PRN 11/26/21 18:10 Albuterol 2.5 mg INH RTQ4H PRN Ipratropium/Albuterol [Duoneb] 3 ml INH Q6HR PRN 11/26/21 18:44 Azithromycin [Zithromax] 250 mg PO DAILY 11/26/21 18:45 Nebulizer/MDI Tx. [RC] .QID 11/26/21 19:00 Budesonide [Pulmicort] 0.5 mg INH RTBID 11/26/21 21:00 Gabapentin [Neurontin] 100 mg PO BID Pantoprazole [Protonix] 40 mg IVP BID 11/27/21 01:00 Sodium Chloride Flush 0.9% [Normal Saline Flush 0.9%] 10 ml IVP 0100,0900,1700 11/27/21 07:00 Levothyroxine [Synthroid] 88 mcg PO QDAC 11/27/21 08:00 D5.45ns W/20 Meq KCl 1,000 ml IV 83.333 mls/hr Ferrous Sulfate [Feosol] 325 mg PO BIDWM 11/27/21 09:00 Memantine [Namenda] 5 mg PO DAILY Sertraline [Zoloft] 50 mg PO DAILY 11/27/21 14:14 Initiate Discharge Checklist [RC] .ONCE 11/27/21 Dinner Clear Liquid Diet [DIET] 11/28/21 00:01 NPO except Meds at Midnight [DIET] 11/28/21 05:00 BMP - BASIC METABOLIC PANEL [CHEM] DAILYLAB CBC - COMP BLD CT W/AUTO DIFF [HEME] DAILYLAB 11/29/21 05:00 BMP - BASIC METABOLIC PANEL [CHEM] DAILYLAB CBC - COMP BLD CT W/AUTO DIFF [HEME] DAILYLAB 11/30/21 05:00 BMP - BASIC METABOLIC PANEL [CHEM] DAILYLAB CBC - COMP BLD CT W/AUTO DIFF [HEME] DAILYLAB 12/01/21 05:00 BMP - BASIC METABOLIC PANEL [CHEM] DAILYLAB CBC - COMP BLD CT W/AUTO DIFF [HEME] DAILYLAB Subjective - Subjective Patient Reports: Resting Comfortably Objective Vital Signs: Vital Signs - 24 hr 11/26/21 11/26/21 11/26/21 17:13 17:22 17:29 Temperature 36.5 C 37 C Heart Rate 90 95 97 Heart Rate [ Brachial] Respiratory 22 18 20 Rate Blood Pressure 116/49 L 106/59 L 106/59 L Blood Pressure [Left Brachial artery] Blood Pressure [Right Brachial artery] O2 Saturation 95 11/26/21 11/26/21 11/26/21 17:45 19:00 19:05 Temperature 37.1 C 36.6 C Heart Rate 89 Heart Rate [ 95 94 Brachial] Respiratory 22 20 Rate Blood Pressure 116/49 L Blood Pressure 93/71 112/44 L [Left Brachial artery] Blood Pressure [Right Brachial artery] O2 Saturation 94 11/26/21 11/26/21 11/26/21 19:39 21:46 23:00 Temperature 37 C 36.8 C Heart Rate 92 104 H 96 Heart Rate [ Brachial] Respiratory 18 20 18 Rate Blood Pressure 110/64 109/49 L Blood Pressure [Left Brachial artery] Blood Pressure [Right Brachial artery] O2 Saturation 11/26/21 11/27/21 11/27/21 23:15 00:10 00:43 Temperature 36.8 C 36.8 C Heart Rate 99 Heart Rate [ 84 85 Brachial] Respiratory 16 17 Rate Blood Pressure 115/64 Blood Pressure 94/50 L [Left Brachial artery] Blood Pressure [Right Brachial artery] O2 Saturation 95 01/11/27/21 11/27/21 02:15 02:30 07:30 Temperature 36.6 C 36.7 C Heart Rate 88 82 Heart Rate [ 83 Brachial] Respiratory 18 16 18 Rate Blood Pressure 100/51 L Blood Pressure [Left Brachial artery] Blood Pressure 100/50 L [Right Brachial artery] O2 Saturation 92 11/27/21 11/27/21 09:11 12:58 Temperature 36.6 C Heart Rate 80 Heart Rate [ 93 Brachial] Respiratory 20 18 Rate Blood Pressure Blood Pressure [Left Brachial artery] Blood Pressure 119/57 L [Right Brachial artery] O2 Saturation 94 Oxygen O2 Source Room air I&O (Last 24 Hrs): Intake and Output Totals x24h 11/25/21 11/26/21 11/27/21 23:59 23:59 23:59 Intake Total 560 360 Balance 560 360 General: Alert, Cooperative, No acute distress HEENT: Atraumatic Neck: Supple Lymphatic: no adenopathy Neuro: Alert, Non Focal Cardiovascular: Regular rate, Normal S1, Normal S2 Respiratory: Chest non-tender, No respiratory distress Abdomen: Normal bowel sounds, Soft Extremities: Normal pulses - Results Results: Laboratory Results WBC 8.3 x10^3/uL (4.8-10.8) 11/27/21 06:09 RBC 2.75 10^6/uL (4.20-5.40) L 11/27/21 06:09 Hgb 7.9 g/dL (12.0-16.0) L 11/27/21 15:05 Hct 25.0 % (37.0-47.0) L 11/27/21 15:05 MCV 90.2 fL (81.0-99.0) 11/27/21 06:09 MCH 28.4 pg (27.0-31.0) 11/27/21 06:09 MCHC 31.5 g/dL (32.0-36.0) L 11/27/21 06:09 RDW 17.2 % (12.0-15.0) H 11/27/21 06:09 Plt Count 266 10^3/uL (130-450) 11/27/21 06:09 MPV 9.6 fL (7.9-10.8) 11/27/21 06:09 Reticulocyte % (Auto) 4.43 % (0.5-2.3) H 11/27/21 03:05 Neut # (Auto) 5.4 10^3/uL (1.5-6.6) 11/27/21 06:09 Lymph # (Auto) 1.9 10^3/uL (1.5-3.5) 11/27/21 06:09 [place] # (Auto) 0.7 10^3/uL (0.0-1.0) 11/27/21 06:09 Eos # (Auto) 0.2 10^3/uL (0.0-0.7) 11/27/21 06:09 Baso # (Auto) 0.1 10^3/uL (0.0-0.1) 11/27/21 06:09 Absolute Nucleated RBC 0.00 x10^3/uL 11/27/21 06:09 Nucleated RBC % 0.0 /100WBC 11/27/21 06:09 Absolute Retic 0.118 10^6/uL (0.020-0.110) H 11/27/21 03:05 Sodium 141 mmol/L (135-145) 11/27/21 06:09 Potassium 3.5 mmol/L (3.5-5.0) 11/27/21 06:09 Chloride 108 mmol/L (101-111) 11/27/21 06:09 Carbon Dioxide 25 mmol/L (21-32) 11/27/21 06:09 Anion Gap 8.0 (6-13) 11/27/21 06:09 BUN 18 mg/dL (6-20) 11/27/21 06:09 Creatinine 0.5 mg/dL (0.4-1.0) 11/27/21 06:09 Estimated GFR (MDRD) 117 (>89) 11/27/21 06:09 Glucose 92 mg/dL (70-100) 11/27/21 06:09 Lactic Acid 1.3 mmol/L (0.5-2.2) 11/26/21 15:23 Calcium 8.4 mg/dL (8.5-10.3) L 11/27/21 06:09 Iron 24 ug/dL (28-170) L 11/26/21 15:23 TIBC 452 ug/dL (250-450) H 11/26/21 15:23 % Saturation 5 % (20-50) L 11/26/21 15:23 Transferrin 323 mg/dL (192-382) 11/26/21 15:23 Ferritin 6.9 ng/mL (11.0-306.8) L 11/26/21 15:23 Total Bilirubin 0.4 mg/dL (0.2-1.0) 11/26/21 15:23 AST 18 IU/L (10-42) 11/26/21 15:23 ALT 14 IU/L (10-60) 11/26/21 15:23 Alkaline Phosphatase 38 IU/L (42-121) L 11/26/21 15:23 Lactate Dehydrogenase 140 IU/L (91-225) 11/26/21 15:23 Troponin I High Sens 26.1 ng/L (2.3-14.8) H* 11/27/21 03:05 Total Protein 5.2 g/dL (6.7-8.2) L 11/26/21 15:23 Albumin 3.1 g/dL (3.2-5.5) L 11/26/21 15:23 Globulin 2.1 g/dL (2.1-4.2) 11/26/21 15:23 Albumin/Globulin Ratio 1.5 (1.0-2.2) 11/26/21 15:23 Lipase 38 U/L (22-51) 11/26/21 15:23 Vitamin B12 154 pg/mL (180-914) L 11/26/21 15:23 TSH 2.39 uIU/mL (0.34-5.60) 11/27/21 06:09 Urine Color YELLOW 11/26/21 15:35 Urine Clarity CLEAR (CLEAR) 11/26/21 15:35 Urine pH 5.5 PH (5.0-7.5) 11/26/21 15:35 Ur Specific [place] 1.015 (1.002-1.030) 11/26/21 15:35 Urine Protein NEGATIVE mg/dL (NEGATIVE) 11/26/21 15:35 Urine Glucose (UA) NEGATIVE mg/dL (NEGATIVE) 11/26/21 15:35 Urine Ketones NEGATIVE mg/dL (NEGATIVE) 11/26/21 15:35 Urine Occult Blood NEGATIVE (NEGATIVE) 11/26/21 15:35 Urine Nitrite NEGATIVE (NEGATIVE) 11/26/21 15:35 Urine Bilirubin NEGATIVE (NEGATIVE) 11/26/21 15:35 Urine Urobilinogen 0.2 (NORMAL) E.U./dL (NORMAL) 11/26/21 15:35 Ur Leukocyte Esterase TRACE (NEGATIVE) H 11/26/21 15:35 Urine RBC 0-5 /HPF (0-5) 11/26/21 15:35 Urine WBC 6-10 /HPF (0-5) H 11/26/21 15:35 Ur Squamous Epith Cells MOD Squamous (<= Few) H 11/26/21 15:35 Urine Bacteria None Seen /HPF (None Seen) 11/26/21 15:35 Ur Microscopic Review INDICATED 11/26/21 15:35 Urine Culture Comments NOT INDICATED 11/26/21 15:35 Nasal Adenovirus (PCR) NOT DETECTED 11/26/21 17:00 Nasal B. parapertussis DNA (PCR) NOT DETECTED 11/26/21 17:00 Nasal Coronavir 229E PCR NOT DETECTED 11/26/21 17:00 Nasal Coronavir HKU1 PCR NOT DETECTED 11/26/21 17:00 Nasal Coronavir NL63 PCR NOT DETECTED 11/26/21 17:00 Nasal Coronavir OC43 PCR NOT DETECTED 11/26/21 17:00 Nasal Enterovir/Rhinovir PCR NOT DETECTED 11/26/21 17:00 Nasal Influenza B PCR NOT DETECTED 11/26/21 17:00 Nasal Influenza A PCR NOT DETECTED 11/26/21 17:00 Nasal Parainfluen 1 PCR NOT DETECTED 11/26/21 17:00 Nasal Parainfluen 2 PCR NOT DETECTED 11/26/21 17:00 Nasal Parainfluen 3 PCR NOT DETECTED 11/26/21 17:00 Nasal Parainfluen 4 PCR NOT DETECTED 11/26/21 17:00 Nasal RSV (PCR) NOT DETECTED 11/26/21 17:00 Nasal B.pertussis DNA PCR NOT DETECTED 11/26/21 17:00 Nasal C.pneumoniae (PCR) NOT DETECTED 11/26/21 17:00 Leroy Human Metapneumo PCR NOT DETECTED 11/26/21 17:00 Nasal M.pneumoniae (PCR) NOT DETECTED 11/26/21 17:00 Nasal SARS-CoV-2 (PCR) NOT DETECTED 11/26/21 17:00 Blood Type A POSITIVE 11/26/21 15:55 Blood Type Recheck A POSITIVE 11/26/21 15:23 Antibody Screen NEGATIVE 11/26/21 15:55 Crossmatch IS Only See Detail 11/26/21 15:55 ABX Reporting Has patient been on IV antibiotics over the past 48 hours?: No Current Medications - Current Medications Current Medications: Active Medications Acetaminophen (Acetaminophen 325 Mg Tablet) 650 mg PO Q4HR PRN PRN Reason: Pain 1 to 4 Last Admin: 11/27/21 02:09 Dose: 650 mg Albuterol (Albuterol Neb 2.5 Mg/3 Ml) 2.5 mg INH RTQ4H PRN PRN Reason: Wheezing Albuterol/Ipratropium (Ipratropium/Albuterol 3 Ml Neb) 3 ml INH Q6HR PRN PRN Reason: Wheezing Last Admin: 11/27/21 02:14 Dose: 3 ml Azithromycin (Azithromycin 250 Mg Tablet) 250 mg PO DAILY [facility] Last Admin: 11/27/21 10:02 Dose: 250 mg Budesonide (Budesonide 0.5 Mg/2 Ml Neb) 0.5 mg INH RTBID [facility] Last Admin: 11/27/21 09:08 Dose: 0.5 mg Ferrous Sulfate (Ferrous Sulfate 325 Mg Tablet) 325 mg PO BIDWM [facility] Last Admin: 11/27/21 10:04 Dose: 325 mg Gabapentin (Gabapentin 100 Mg Capsule) 100 mg PO BID [facility] Last Admin: 11/27/21 10:03 Dose: 100 mg Gabapentin (Gabapentin 100 Mg Capsule) 100 mg PO DAILY PRN PRN Reason: Neuropathy Potassium Chloride/Dextrose/Sod Cl (D5.45ns W/20 Meq Kcl) 1,000 mls @ 83.333 mls/hr IV .Q12H [facility] Stop: 11/28/21 07:59 Last Admin: 11/27/21 10:04 Dose: 83.333 mls/hr Levothyroxine Sodium (Levothyroxine 88 Mcg Tablet) 88 mcg PO QDAC [facility] Last Admin: 11/27/21 06:55 Dose: 88 mcg Memantine (Memantine 5 Mg Tablet) 5 mg PO DAILY [facility] Last Admin: 11/27/21 10:02 Dose: 5 mg Metoprolol Tartrate (Metoprolol 5 Mg/5 Ml Vial) 5 mg IVP Q6H PRN PRN Reason: Tachycardia Ondansetron HCl (Ondansetron 4 Mg/2 Ml Vial) 4 mg IVP Q6HR PRN PRN Reason: Nausea / Vomiting Pantoprazole Sodium (Pantoprazole 40 Mg Vial) 40 mg IVP BID [facility] Last Admin: 11/27/21 10:05 Dose: 40 mg Sertraline HCl (Sertraline 50 Mg Tablet) 50 mg PO DAILY [facility] Last Admin: 11/27/21 10:03 Dose: 50 mg Sodium Chloride (Sodium Chloride Flush 0.9% 10 Ml Syringe) 10 ml IVP PRN PRN PRN Reason: NEEDED PER PROVIDER ORDERS Last Admin: 11/27/21 02:09 Dose: 10 ml Sodium Chloride (Sodium Chloride Flush 0.9% 10 Ml Syringe) 10 ml IVP 0100,0900,1700 [facility] Last Admin: 11/27/21 10:05 Dose: 10 ml Acetaminophen [Acetaminophen Extra Strength] 500 mg PO BID 11/26/21 Acetaminophen [Acetaminophen Extra Strength] 500 mg PO Q8H PRN 11/26/21 Albuterol Sulfate [Proair Respiclick] 2 puffs INH Q6H PRN 11/26/21 Budesonide/Formoterol Fumarate [Symbicort 160-4.5 Mcg Inhaler] 2 puffs INH BID 11/26/21 Ferrous Sulfate 325 mg PO BIDWM 11/26/21 Gabapentin [Neurontin] 100 mg PO BID 11/26/21 Gabapentin [Neurontin] 100 mg PO DAILY PRN 11/26/21 Levothyroxine Sodium [Synthroid] 88 mcg PO QDAC 11/26/21 Loperamide [Imodium] 2 mg PO QID PRN 11/26/21 Memantine [Namenda] 5 mg PO DAILY 11/26/21 Sertraline [Zoloft] 50 mg PO DAILY 11/26/21
--- NOTE | 2021-11-27 17:04 | CONSULTATION NOTE ---
Referring Provider Consult Date: 11/27/21 Chief Complaint - Chief Complaint Chief Complaint: bloody stool History of Present Illness - History Obtained From Records Reviewed: yes History obtained from: pt Exam Limitations: dementia/ questionable hx - History of Present Illness HPI Comment/Other: She states she may have had abnormal bms/ bloody for 2 to 3 months. She denies having pain on swallowing, trouble swallowing. When admitted it was documented she was having pain. She seemed to be doing well with stable h and h and brown bms and then had another dark/ bloody bm this afternoon. History - Past Medical History Cardiovascular: reports: Congestive heart failure, Arrhythmia, Valve disorder Neuro: reports: Dementia Endocrine/Autoimmune: reports: HyPOthyroidism Psych: reports: Depression, Eating disorder - Past Surgical History Cardiovascular: reports: Valve replacement - Family & Social History Family History Comment/Other: Patient could not answer her family medical history due to her history of dementia Social History Notes: Patient could not answer her social history dueTo her history of dementia - POLST Patient has POLST: Yes Meds/Allgy - Home Medications Home Medications: Ambulatory Orders Medication Instructions Recorded Confirmed Acetaminophen [Acetaminophen Extra 500 mg PO BID 11/26/21 11/26/21 Strength] Acetaminophen [Acetaminophen Extra 500 mg PO Q8H PRN 11/26/21 11/26/21 Strength] Albuterol Sulfate [Proair 2 puffs INH Q6H PRN 11/26/21 11/26/21 Respiclick] Budesonide/Formoterol Fumarate 2 puffs INH BID 11/26/21 11/26/21 [Symbicort 160-4.5 Mcg Inhaler] Ferrous Sulfate 325 mg PO BIDWM 11/26/21 11/26/21 Gabapentin [Neurontin] 100 mg PO BID 11/26/21 11/26/21 Gabapentin [Neurontin] 100 mg PO DAILY PRN 11/26/21 11/26/21 Levothyroxine Sodium [Synthroid] 88 mcg PO QDAC 11/26/21 11/26/21 Loperamide [Imodium] 2 mg PO QID PRN 11/26/21 11/26/21 Memantine [Namenda] 5 mg PO DAILY 11/26/21 11/26/21 Sertraline [Zoloft] 50 mg PO DAILY 11/26/21 11/26/21 Azithromycin [Zithromax] 250 mg PO DAILY #4 tablet 11/27/21 Pantoprazole [Protonix] 40 mg PO DAILY #30 tablet 11/27/21 - Allergies Allergies/Adverse Reactions: Allergies Allergy/AdvReac Type Severity Reaction Status Date / Time latex AdvReac Mild Unknown Verified 11/26/21 15:13 aspirin AdvReac Unknown Verified 11/26/21 18:07 escitalopram [From Lexapro] AdvReac Unknown Verified 11/26/21 18:07 Review of Systems - Other Findings Other Findings: 10 pt ros as above otherwise unremarkable Exam - Vital Signs Reviewed Vital Signs: Yes Vital Signs: Vital Signs x48h Temp Pulse Pulse Resp BP Pulse Ox 11/27/21 16:00 36.9 C 85 18 118/55 L 94 11/27/21 12:58 36.6 C 93 18 119/57 L 94 11/27/21 09:11 80 20 - Physical Exam General Appearance: positive: No acute distress, Alert Eyes Bilateral: positive: PERRL, EOMI, No scleral icterus ENT: positive: No signs of dehydration Neck: positive: No JVD Respiratory: positive: No respiratory distress, Breath sounds nml Cardiovascular: positive: Irregularly irregular Abdomen: positive: Non-tender, No distention Neurologic/Psychiatric: positive: Other (alert and cooperative) Conclusion/Plan - Problem List (1) GI bleed Conclusion/Plan: plan EGD. parq held and consent obtained - Lab Results Fish Bones: 11/27/21 15:05 11/27/21 06:09
--- NOTE | 2021-11-27 18:02 | ANESTHESIA ---
Pre-Anesthesia VS, & Labs - Diagnosis anemia - Procedure EGD Vital Signs: Temp Pulse Resp BP Pulse Ox 36.9 C 86 20 118/55 L 94 11/27/21 16:00 11/27/21 17:33 11/27/21 17:33 11/27/21 16:00 11/27/21 16:00 Height: 5 ft 6 in Weight (kg): 45.5 kg Body Mass Index: 16.2 BMI Classification: Underweight - NPO >8 hours - Is Patient ?: No - Lab Results Current Lab Results: Laboratory Tests 11/27/21 15:05: Hgb 7.9 L, Hct 25.0 L 11/27/21 11:09: Hgb 8.1 L, Hct 25.4 L 11/27/21 06:09: TSH 2.39 11/27/21 06:09: Sodium 141, Potassium 3.5, Chloride 108, Carbon Dioxide 25, Anion Gap 8.0, BUN 18, Creatinine 0.5, Estimated GFR (MDRD) 117, Glucose 92, Calcium 8.4 L 11/27/21 06:09: WBC 8.3, RBC 2.75 L, Hgb 7.8 L, Hct 24.8 L, MCV 90.2, MCH 28.4, MCHC 31.5 L, RDW 17.2 H, Plt Count 266, MPV 9.6, Neut # (Auto) 5.4, Lymph # (Auto) 1.9, Lincoln # (Auto) 0.7, Eos # (Auto) 0.2, Baso # (Auto) 0.1, Absolute Nucleated RBC 0.00, Nucleated RBC % 0.0 11/27/21 03:05: Troponin I High Sens 26.1 H* 11/27/21 03:05: RBC 2.67 L, Reticulocyte % (Auto) 4.43 H, Absolute Retic 0.118 H 11/27/21 00:50: WBC 8.1, RBC 2.33 L, Hgb 6.8 L*, Hct 21.6 L, MCV 92.7, MCH 29.2, MCHC 31.5 L, RDW 16.9 H, Plt Count 249, MPV 9.3 11/27/21 00:50: Troponin I High Sens 24.9 H* 11/26/21 15:55: Blood Type A POSITIVE, Antibody Screen NEGATIVE, Crossmatch IS Only See Detail 11/26/21 15:23: Lactate Dehydrogenase 140 11/26/21 15:23: Ferritin 6.9 L, Vitamin B12 154 L 11/26/21 15:23: Iron 24 L, TIBC 452 H, % Saturation 5 L, Transferrin 323 11/26/21 15:23: Blood Type Recheck A POSITIVE 11/26/21 15:23: Troponin I High Sens 18.6 H* 11/26/21 15:23: Lactic Acid 1.3 11/26/21 15:23: TSH 1.63 11/26/21 15:23: Sodium 138, Potassium 3.6, Chloride 104, Carbon Dioxide 25, Anion Gap 9.0, BUN 23 H, Creatinine 0.5, Estimated GFR (MDRD) 117, Glucose 99, Calcium 8.4 L, Total Bilirubin 0.4, AST 18, ALT 14, Alkaline Phosphatase 38 L, Total Protein 5.2 L, Albumin 3.1 L, Globulin 2.1, Albumin/Globulin Ratio 1.5, Lipase 38 11/26/21 15:23: WBC 6.6, RBC 1.60 L, Hgb 4.8 L*, Hct 15.6 L*, MCV 97.5, MCH 30.0, MCHC 30.8 L, RDW 14.7, Plt Count 259, MPV 9.3, Neut # (Auto) 4.3, Lymph # (Auto) 1.5, Lincoln # (Auto) 0.6, Eos # (Auto) 0.1, Baso # (Auto) 0.0, Absolute Nucleated RBC 0.02, Nucleated RBC % 0.3 Fish Bones: 11/27/21 15:05 11/27/21 06:09 Home Medications and Allergies Home Medications: Ambulatory Orders Acetaminophen [Acetaminophen Extra Strength] 500 mg PO BID 11/26/21 Acetaminophen [Acetaminophen Extra Strength] 500 mg PO Q8H PRN 11/26/21 Albuterol Sulfate [Proair Respiclick] 2 puffs INH Q6H PRN 11/26/21 Budesonide/Formoterol Fumarate [Symbicort 160-4.5 Mcg Inhaler] 2 puffs INH BID 11/26/21 Ferrous Sulfate 325 mg PO BIDWM 11/26/21 Gabapentin [Neurontin] 100 mg PO BID 11/26/21 Gabapentin [Neurontin] 100 mg PO DAILY PRN 11/26/21 Levothyroxine Sodium [Synthroid] 88 mcg PO QDAC 11/26/21 Loperamide [Imodium] 2 mg PO QID PRN 11/26/21 Memantine [Namenda] 5 mg PO DAILY 11/26/21 Sertraline [Zoloft] 50 mg PO DAILY 11/26/21 Active Medications Acetaminophen (Acetaminophen 325 Mg Tablet) 650 mg PO Q4HR PRN PRN Reason: Pain 1 to 4 Last Admin: 11/27/21 02:09 Dose: 650 mg Albuterol (Albuterol Neb 2.5 Mg/3 Ml) 2.5 mg INH RTQ4H PRN PRN Reason: Wheezing Albuterol/Ipratropium (Ipratropium/Albuterol 3 Ml Neb) 3 ml INH Q6HR PRN PRN Reason: Wheezing Last Admin: 11/27/21 02:14 Dose: 3 ml Azithromycin (Azithromycin 250 Mg Tablet) 250 mg PO DAILY [facility] Last Admin: 11/27/21 10:02 Dose: 250 mg Budesonide (Budesonide 0.5 Mg/2 Ml Neb) 0.5 mg INH RTBID [facility] Last Admin: 11/27/21 17:31 Dose: 0.5 mg Ferrous Sulfate (Ferrous Sulfate 325 Mg Tablet) 325 mg PO BIDWM [facility] Last Admin: 11/27/21 10:04 Dose: 325 mg Gabapentin (Gabapentin 100 Mg Capsule) 100 mg PO BID [facility] Last Admin: 11/27/21 10:03 Dose: 100 mg Gabapentin (Gabapentin 100 Mg Capsule) 100 mg PO DAILY PRN PRN Reason: Neuropathy Potassium Chloride/Dextrose/Sod Cl (D5.45ns W/20 Meq Kcl) 1,000 mls @ 83.333 mls/hr IV .Q12H [facility] Stop: 11/28/21 17:50 Levothyroxine Sodium (Levothyroxine 88 Mcg Tablet) 88 mcg PO QDAC [facility] Last Admin: 11/27/21 06:55 Dose: 88 mcg Memantine (Memantine 5 Mg Tablet) 5 mg PO DAILY [facility] Last Admin: 11/27/21 10:02 Dose: 5 mg Metoprolol Tartrate (Metoprolol 5 Mg/5 Ml Vial) 5 mg IVP Q6H PRN PRN Reason: Tachycardia Ondansetron HCl (Ondansetron 4 Mg/2 Ml Vial) 4 mg IVP Q6HR PRN PRN Reason: Nausea / Vomiting Pantoprazole Sodium (Pantoprazole 40 Mg Vial) 40 mg IVP BID [facility] Last Admin: 11/27/21 10:05 Dose: 40 mg Sertraline HCl (Sertraline 50 Mg Tablet) 50 mg PO DAILY [facility] Last Admin: 11/27/21 10:03 Dose: 50 mg Sodium Chloride (Sodium Chloride Flush 0.9% 10 Ml Syringe) 10 ml IVP PRN PRN PRN Reason: NEEDED PER PROVIDER ORDERS Last Admin: 11/27/21 02:09 Dose: 10 ml Sodium Chloride (Sodium Chloride Flush 0.9% 10 Ml Syringe) 10 ml IVP 0100,0900,1700 [facility] Last Admin: 11/27/21 10:05 Dose: 10 ml Acetaminophen [Acetaminophen Extra Strength] 500 mg PO BID 11/26/21 Acetaminophen [Acetaminophen Extra Strength] 500 mg PO Q8H PRN 11/26/21 Albuterol Sulfate [Proair Respiclick] 2 puffs INH Q6H PRN 11/26/21 Budesonide/Formoterol Fumarate [Symbicort 160-4.5 Mcg Inhaler] 2 puffs INH BID 11/26/21 Ferrous Sulfate 325 mg PO BIDWM 11/26/21 Gabapentin [Neurontin] 100 mg PO BID 11/26/21 Gabapentin [Neurontin] 100 mg PO DAILY PRN 11/26/21 Levothyroxine Sodium [Synthroid] 88 mcg PO QDAC 11/26/21 Loperamide [Imodium] 2 mg PO QID PRN 11/26/21 Memantine [Namenda] 5 mg PO DAILY 11/26/21 Sertraline [Zoloft] 50 mg PO DAILY 11/26/21 Allergies/Adverse Reactions: Allergies Allergy/AdvReac Type Severity Reaction Status Date / Time latex AdvReac Mild Unknown Verified 11/26/21 15:13 aspirin AdvReac Unknown Verified 11/26/21 18:07 escitalopram [From Lexapro] AdvReac Unknown Verified 11/26/21 18:07 Anes History & Medical History - Anesthetic History Anesthesia Complications: reports: No previous complications - Medical History Cardiovascular: reports: Congestive heart failure, Arrhythmia, Valve disorder Neuro: reports: Dementia Endocrine/Autoimmune: reports: HyPOthyroidism Smoking Status: Former smoker - Surgical History Cardiothoracic: reports: Valve replacement Exam General: Alert, Oriented x3, Cooperative Dental: WNL, Dentures full Upper Mouth Opening: Greater than 4 Fingerbreadths Neck Mobility: Normal Mallampati classification: II Respiratory: Lungs clear Cardiovascular: Regular rate Plan Anesthesia Type: Total IV Consent for Procedure(s) Verified and Reviewed: Yes Code Status: Attempt Resuscitation ASA classification: 2-Mild systemic disease Is this case an emergency?: No
[2021-11-27] MEDS: D5.45NS W/20 MEQ KCL 1,000 ML IV SCH (18:16)
[2021-11-27] MEDS ORDERED: LIDOCAINE-MPF 2% 5 ML VIAL ONE (20:09)
[2021-11-27] MEDS ORDERED: PROPOFOL 200 MG/20 ML VIAL IVP ONE (20:09)
--- NOTE | 2021-11-27 20:41 | OPERATIVE REPORT ---
Operative Report - General Admit Date: 11/26/21 Procedure Date: 11/27/21 Planned Procedure: EGD Pre-Op Diagnosis: anemia and gi bleed Procedure Performed: egd Post Op Diagnosis: evidence of GERD without current bleeding or erosions - Procedure Note Primary Surgeon: yelitza baez Anesthesia Technique: MAC Pathology: none Estimated Blood Loss (mL): 0 Indications: anemia and evidence gi bleeding Findings: barretts or metaplasia changes distal esophagus without erosions or bleeding normal egd otherwise Complications: none
--- NOTE | 2021-11-27 20:43 | ANESTHESIA POST OP EVALUATION ---
Anesthesia Post Eval - Post Anesthesia Eval Vitals: Last Vital Signs Temp 37.1 C 11/27/21 20:41 Pulse 91 11/27/21 20:41 Resp 18 11/27/21 20:41 BP 119/53 L 11/27/21 20:41 Pulse Ox 95 11/27/21 20:41 CV Function Including HR & BP: Stable Pain Control: Satisfactory Nausea & Vomiting: Negative Mental Status: Baseline Respiratory Status: Airway Patent Hydration Status: Satisfactory Anesthesia Complications: None
[2021-11-27 22:05] LABS: HCT - HEMATOCRIT 23.3 % (37.0-47.0); HGB - HEMOGLOBIN 7.5 g/dL (12.0-16.0)
[2021-11-28] MEDS: SODIUM CHLORIDE FLUSH 0.9% 10 ML SYRINGE IVP SCH ×2 (00:35→09:31)
[2021-11-28] MEDS ORDERED: D5.45NS W/20 MEQ KCL 1,000 ML IV SCH (01:00)
[2021-11-28 05:46] LABS: BASOPHILS # (AUTO) 0.1 10^3/uL (0.0-0.1); BASOPHILS % (AUTO) 0.9 %; EOSINOPHILS # (AUTO) 0.4 10^3/uL (0.0-0.7); EOSINOPHILS % (AUTO) 4.5 %; HCT - HEMATOCRIT 24.1 % (37.0-47.0); HGB - HEMOGLOBIN 7.5 g/dL (12.0-16.0); LYMPHOCYTES # (AUTO) 1.3 10^3/uL (1.5-3.5); LYMPHOCYTES % (AUTO) 15.9 %; MEAN CORPUSCULAR HEMOGLOBIN 28.3 pg (27.0-31.0); MEAN CORPUSCULAR HGB CONC 31.1 g/dL (32.0-36.0); MEAN CORPUSCULAR VOLUME 90.9 fL (81.0-99.0); MEAN PLATELET VOLUME 10.2 fL (7.9-10.8); MONOCYTES # (AUTO) 0.7 10^3/uL (0.0-1.0); MONOCYTES % (AUTO) 9.2 %; NEUTROPHILS # (AUTO) 5.6 10^3/uL (1.5-6.6); NEUTROPHILS % (AUTO) 69.3 %; PLT - PLATELET COUNT 280 10^3/uL (130-450); RED BLOOD COUNT 2.65 10^6/uL (4.20-5.40); RED CELL DISTRIBUTION WIDTH 17.1 % (12.0-15.0); WHITE BLOOD COUNT 8.1 x10^3/uL (4.8-10.8)
[2021-11-28 05:57] LABS: CALCIUM 8.3 mg/dL (8.5-10.3); CREATININE 0.4 mg/dL (0.4-1.0); POTASSIUM 3.4 mmol/L (3.5-5.0)
[2021-11-28] MEDS: LEVOTHYROXINE 88 MCG TABLET PO SCH (06:44)
[2021-11-28] MEDS: D5.45NS W/20 MEQ KCL 1,000 ML IV SCH (06:53)
[2021-11-28] MEDS ORDERED: PANTOPRAZOLE 40 MG TABLET PO SCH (07:00)
[2021-11-28] MEDS ORDERED: POTASSIUM CHLORIDE 20 MEQ TABLET PO ONE (08:02)
[2021-11-28] MEDS: BUDESONIDE 0.5 MG/2 ML NEB INH SCH (08:23)
[2021-11-28] MEDS: MEMANTINE 5 MG TABLET PO SCH (09:30)
[2021-11-28] MEDS: SERTRALINE 50 MG TABLET PO SCH (09:30)
[2021-11-28] MEDS: FERROUS SULFATE 325 MG TABLET PO SCH (09:31)
[2021-11-28] MEDS: GABAPENTIN 100 MG CAPSULE PO SCH (09:31)
[2021-11-28] MEDS: AZITHROMYCIN 250 MG TABLET PO SCH (09:31)
[2021-11-28 10:48] LABS: HCT - HEMATOCRIT 25.9 % (37.0-47.0); HGB - HEMOGLOBIN 7.9 g/dL (12.0-16.0)
--- NOTE | 2021-11-28 12:30 | Discharge Plan ---
"Discharge Plan for SNF / [facility] - Discharge Plan And Transition Orders Problem Reviewed?: Yes Disposition: 03 SNF DC/Xfer Condition: Stable Allergies and Adverse Reactions: Allergies Allergy/AdvReac Type Severity Reaction Status Date / Time latex AdvReac Mild Unknown Verified 11/26/21 15:13 aspirin AdvReac Unknown Verified 11/26/21 18:07 escitalopram [From Lexapro] AdvReac Unknown Verified 11/26/21 18:07 Health Concerns: GI bleeding, anemia Plan of Treatment: you have no bowel movement on today but your HGB stable and increased. You had EGD done at hospital, no acute bleeding site was found. Your home Xarelto medication is holding now for GI bleeding healing. You may followup with your PCP in one week, recheck your HGB, discuss with your PCP the time to resume blood thinner or continuing holding your blood thinner as medical Necessary. You are also prescribed Protonix for your GERD and GI bleed healing. You were found to have significant anemia at the admission. You had two units of blood transfusion in the hospital. Your HGB is stable and increased. You are found Iron and B12 deficiency anemia. You may continue to have iron pill as your home medication. You were given B12 for your B12 Deficiency in the hospital. You are found to have small left lower lobe pulmonary nodule measuring up to 5 mm is increased in prominence compared to the prior study, recommend a short term chest CT to demonstrate stability. Care Goals: Stabilization and improvement/resolve of your medical conditions Assessment: Discussed the care plan with you and your DPOA, Answered your questions, you understood - SNF / [place] Transition Orders Admit to (Facility): [facility] Under the care of (Name): Medical provider of [facility] Discharge Diagnosis: GI bleed, anemia, dementia, Hypothyroidism, Asthma with COPD, pulmonary nodules. Medicare Certification Statement: I do not certify that Post Hospital halfway care is medically necessary on a continuing basis for any of the conditions for which she/he is receiving care during hospitalization. Notify PCP of admission and forward orders to primary provider for signature. Weight on admission and: Weekly Call PCP immediately if weight increases by: 2 kg Other Notification Orders: Call PCP immediately if patient develops dyspnea, chest pain/tightness or edema. House Bowel Program: Yes Additional Bowel Program Orders: If no BM after 2 days, nurse may give M.O.M. 30ml PO PRN and/or ducolax Supp 1 [place] and/or GILES 250mg P.O., and/or senna 1-2 tabs PO. On day 3 nurse may give repeat above order until residents constipation is resolved. Annual Influenza Vaccine (between Jul 08 and February 04): Yes Two-step PPD per [facility] [id number] or approved exception documents: Yes Treatments & Other Orders: you have no bowel movement on today but your HGB stab le and increased. You had EGD done at hospital, no acute bleeding site was found. Your home Xarelto medication is holding now for GI bleeding healing. You may followup with your PCP in one week, recheck your HGB, discuss with your PCP the time to resume blood thinner or continuing holding your blood thinner as medical Necessary. You are also prescribed Protonix for your GERD and GI bleed healing. You were found to have significant anemia at the admission. You had two units of blood transfusion in the hospital. Your HGB is stable and increased. You are found Iron and B12 deficiency anemia. You may continue to have iron pill as your home medication. You were given B12 for your B12 Deficiency in the hospital. You are found to have small left lower lobe pulmonary nodule measuring up to 5 mm is increased in prominence compared to the prior study, recommend a short term chest CT to demonstrate stability. Medication Orders: PLEASE REFER TO THE DISCHARGE MEDICATION LIST. Insulin Orders?: No - Medications New Prescriptions: Pantoprazole [Protonix] 40 mg PO DAILY #30 tablet Azithromycin [Zithromax] 250 mg PO DAILY #4 tablet - Diet Type: Geriatric Texture: Regular Liquids: Thin May have monthly special meal: Yes - Therapies | Activity Activity: Activity as Tolerated"
--- NOTE | 2021-11-28 12:46 | DISCHARGE SUMMARY ---
"Discharge Summary Admit Date: 11/26/21 Discharge Date: 11/28/21 Discharging Provider: Pavel Warren Condition at Discharge: Stable Discharge Disposition: SNF DC/Xfer Discharge Facility Name: [facility] - DIAGNOSES Discharge Diagnoses with Status of Each Condition: (1) GI bleed pt's EGD done in the hospital in which patient has no active bleeding site found in the EGD. pt's HGB is steady and slight increased. pt has no bowel movement on today. pt is prescribed Protonix, pt's home Xarelto is holding now. I called pt's Anya CEDILLO, updated pt's medical conditions, and discussed the care plan and answered her questions and concerns. (2) Anemia pt had two unit of blood transfusion. now pt's HGB is 7.9. HGB is steady and slightly increased. Resume home iron pill. pt also had IM Vitamin B12 for her B12 Deficiency. Recheck hemoglobin in 1 week when patient follow-up with her PCP (3) Hypothyroidism stable, resume home meds (4) Dementia stable, resume home meds (5) asthma with COPD (chronic obstructive pulmonary disease) stable, resume home meds, pt is prescribed 4 days of Azithromycin to treat her underline lung infection. (6) lung nodule small left lower lobe pulmonary nodule measuring up to 5 mm is increased in p rominence compared to the prior study, recommend a short term chest CT to demonstrate stability. discussed the care plan with pt's Anya CEDILLO - [place]UCE[place] History of Present Illness: This is a 86-year-old female with a past medical significant for dementia, atrial fibrillation on Xarelto, aortic valve disease with replacement, hypothyroidism, CHF and arrhythmia who presents emergency department for evaluation of epigastric abdominal pain. Pt's history is limited due to the patient's medical condition with hx of dementia. She is from [facility]. she report she had upper abdomen pain beginning at this afternoon. Pt reports her abdominal pain was worsening with movement. Pt reports she had constipation over the last couple days. she denies nausea or vomiting. Routine laboratory test in the ER show patient had a hemoglobin 4.8, she had 12.8 four months ago. Digital rectal exam does reveal kirill melena. pt took Xarelto at home. CT of abdomen is pending. Surgery was called for consultation of GI bleed. pt's POLST form in home [facility] shows that she is a DO NOT RESUSCITATE with limited interventions. - CONSULTS | PROCEDURES Consultations: Dr. Caicedo Procedures: EGD - ALLERGIES Allergies/Adverse Reactions: Allergies Allergy/AdvReac Type Severity Reaction Status Date / Time latex AdvReac Mild Unknown Verified 11/26/21 15:13 aspirin AdvReac Unknown Verified 11/26/21 18:07 escitalopram [From Lexapro] AdvReac Unknown Verified 11/26/21 18:07 - MEDICATIONS Home Medications: Ambulatory Orders Medication Instructions Recorded Confirmed Acetaminophen [Acetaminophen Extra 500 mg PO BID 11/26/21 11/26/21 Strength] Acetaminophen [Acetaminophen Extra 500 mg PO Q8H PRN 11/26/21 11/26/21 Strength] Albuterol Sulfate [Proair 2 puffs INH Q6H PRN 11/26/21 11/26/21 Respiclick] Budesonide/Formoterol Fumarate 2 puffs INH BID 11/26/21 11/26/21 [Symbicort 160-4.5 Mcg Inhaler] Ferrous Sulfate 325 mg PO BIDWM 11/26/21 11/26/21 Gabapentin [Neurontin] 100 mg PO BID 11/26/21 11/26/21 Gabapentin [Neurontin] 100 mg PO DAILY PRN 11/26/21 11/26/21 Levothyroxine Sodium [Synthroid] 88 mcg PO QDAC 11/26/21 11/26/21 Loperamide [Imodium] 2 mg PO QID PRN 11/26/21 11/26/21 Memantine [Namenda] 5 mg PO DAILY 11/26/21 11/26/21 Sertraline [Zoloft] 50 mg PO DAILY 11/26/21 11/26/21 Azithromycin [Zithromax] 250 mg PO DAILY #4 tablet 11/27/21 Pantoprazole [Protonix] 40 mg PO DAILY #30 tablet 11/27/21 - PHYSICAL EXAM AT DISCHARGE General Appearance: positive: No acute distress, Alert. negative: Lethargic Eyes Bilateral: positive: Normal inspection, No lid inflammation ENT: positive: ENT inspection nml, No signs of dehydration. negative: Purulent nasal drainage Neck: positive: Nml inspection, Trachea midline. negative: Tracheal deviation Respiratory: positive: Chest non-tender, No respiratory distress. negative: Wheezes Cardiovascular: positive: Regular rate & rhythm, Systolic murmur. negative: Tachycardia, Bradycardia Peripheral Pulses: positive: 2+ Abdomen: positive: Non-tender, Nml bowel sounds, No distention. negative: Tenderness Back: positive: Nml inspection Skin: positive: Color nml, Warm, Dry Extremities: positive: Non-tender, Full ROM, Nml appearance Neurologic/Psychiatric: positive: Motor nml, Sensation nml. negative: Weakness, Sensory loss, Facial droop, Slurred/abnml speech - LABS Result Diagrams: 11/28/21 10:43 11/28/21 04:41 - FOLLOW UP Follow Up: you have no bowel movement on today but your HGB stable and increased. You had EGD done at hospital, no acute bleeding site was found. Your home Xarelto medi cation is holding now for GI bleeding healing. You may followup with your PCP in one week, recheck your HGB, discuss with your PCP the time to resume blood thinner or continuing holding your blood thinner as medical Necessary. You are also prescribed Protonix for your GERD and GI bleed healing. You were found to have significant anemia at the admission. You had two units of blood transfusion in the hospital. Your HGB is stable and increased. You are found Iron and B12 deficiency anemia. You may continue to have iron pill as your home medication. You were given B12 for your B12 Deficiency in the hospital. You are found to have small left lower lobe pulmonary nodule measuring up to 5 mm is increased in prominence compared to the prior study, recommend a short term chest CT to demonstrate stability. - TIME SPENT Time Spent in Discharge (Minutes): 30"
[2021-11-28 15:13] LABS: B. PARAPERTUSSIS- RESP PCR PAN NOT DETECTED; B. PERTUSSIS- RESP PCR PANEL NOT DETECTED; C. PNEUMONIAE- RESP PCR PANEL NOT DETECTED; CORONAVIRUS 229E-RESP PCR NOT DETECTED; CORONAVIRUS HKU1-RESP PCR NOT DETECTED; CORONAVIRUS NL63-RESP PCR NOT DETECTED; CORONAVIRUS OC43-RESP PCR NOT DETECTED; HUMAN METAPNEUMOVIRUS NOT DETECTED; INFLUENZA A- RESP PCR PANEL NOT DETECTED; INFLUENZA B - RESP PCR PANEL NOT DETECTED; M. PNEUMONIAE- RESP PCR PANEL NOT DETECTED; PARAINFLUENZA VIRUS 1 NOT DETECTED; PARAINFLUENZA VIRUS 2 NOT DETECTED; PARAINFLUENZA VIRUS 3 NOT DETECTED; PARAINFLUENZA VIRUS 4 NOT DETECTED; RHINOVIRUS/ENTEROVIRUS NOT DETECTED; RSV- RESP PCR PANEL NOT DETECTED; SARS-CoV-2 -RESP PCR PANEL NOT DETECTED
[2021-11-28 16:06] VITALS: BP 111/47
== END 2021-11-28 16:08 | DRG 379 ==
LOC: EDUNIT# → ED 14:56 → MS2 17:06
PROVIDERS: ADMIT Nurse Practitioner Gerontology; ATTEND Nurse Practitioner Gerontology
PROC: 30233N1 Transfusion of Nonautologous Red Blood Cells into Peripheral Vein, Percutaneous Approach (ICD-10-PCS; principal; 2021-11-26)
PROC: 0DJ08ZZ Inspection of Upper Intestinal Tract, Via Natural or Artificial Opening Endoscopic (ICD-10-PCS; 2021-11-27)
DX: K92.1 Melena (principal); D64.89 Other specified anemias; I49.3 Ventricular premature depolarization; D50.9 Iron deficiency anemia, unspecified; D51.9 Vitamin B12 deficiency anemia, unspecified; E03.9 Hypothyroidism, unspecified; F03.90 Unspecified dementia, unspecified severity, without behavioral disturbance, psychotic disturbance, mood disturbance, and anxiety; Z20.822 Contact with and (suspected) exposure to COVID-19; J44.9 Chronic obstructive pulmonary disease, unspecified; I48.91 Unspecified atrial fibrillation; I50.9 Heart failure, unspecified; R13.10 Dysphagia, unspecified; R91.1 Solitary pulmonary nodule; K21.9 Gastro-esophageal reflux disease without esophagitis; K22.89 Other specified disease of esophagus; Z66 Do not resuscitate; Z79.01 Long term (current) use of anticoagulants; Z79.890 Hormone replacement therapy; Z79.899 Other long term (current) drug therapy; Z88.8 Allergy status to other drugs, medicaments and biological substances; Z91.040 Latex allergy status; Z95.2 Presence of prosthetic heart valve
CPT/HCPCS: 36415; 36430; 71045; 74177; 80048; 80053; 81001; 82272; 82607; 82728; 83540; 83605; 83615; 83690; 84443; 84466; 84484; 85014; 85018; 85025; 85027; 85045; 86850; 86900; 86901; 86920; 87631; 93005; 94640; 94664; 99283; 99285; A9270; J7626; P9016; Q9967; 0202U; 81003; 87086

== ENCOUNTER 2021-11-28 16:16 | Outpatient (CLI) | payer MEDICARE, MEDICAID | END 2021-11-28 16:17 | disposition home or self-care (01) | LOC: EMS 16:16 | PROVIDERS: ATTEND Nurse Practitioner Gerontology | DX: R41.0 Disorientation, unspecified (principal); F03.90 Unspecified dementia, unspecified severity, without behavioral disturbance, psychotic disturbance, mood disturbance, and anxiety | CPT/HCPCS: A0425; A0428 ==

== ENCOUNTER 2021-12-10 14:29 | Outpatient (CLI) | payer MEDICARE, MEDICAID | END 2021-12-10 14:30 | disposition critical access hospital (66) | LOC: EMS 14:29 | DX: R79.0 Abnormal level of blood mineral (principal); R91.1 Solitary pulmonary nodule; U07.1 COVID-19 | CPT/HCPCS: A0425; A0429 ==

== ENCOUNTER 2021-12-10 14:50 | Emergency (ER) | payer MEDICARE, MEDICAID ==
[2021-12-10 15:25] LABS: BASOPHILS % (AUTO) 0.8 %; EOSINOPHILS # (AUTO) 0.2 10^3/uL (0.0-0.7); EOSINOPHILS % (AUTO) 3.6 %; HCT - HEMATOCRIT 30.2 % (37.0-47.0); HGB - HEMOGLOBIN 9.1 g/dL (12.0-16.0); LYMPHOCYTES # (AUTO) 1.7 10^3/uL (1.5-3.5); LYMPHOCYTES % (AUTO) 34.6 %; MEAN CORPUSCULAR HEMOGLOBIN 29.3 pg (27.0-31.0); MEAN CORPUSCULAR HGB CONC 30.1 g/dL (32.0-36.0); MEAN CORPUSCULAR VOLUME 97.1 fL (81.0-99.0); MEAN PLATELET VOLUME 10.3 fL (7.9-10.8); MONOCYTES # (AUTO) 0.5 10^3/uL (0.0-1.0); MONOCYTES % (AUTO) 10.9 %; NEUTROPHILS # (AUTO) 2.4 10^3/uL (1.5-6.6); NEUTROPHILS % (AUTO) 49.9 %; PLT - PLATELET COUNT 229 10^3/uL (130-450); RED BLOOD COUNT 3.11 10^6/uL (4.20-5.40); RED CELL DISTRIBUTION WIDTH 16.7 % (12.0-15.0); WHITE BLOOD COUNT 4.8 x10^3/uL (4.8-10.8)
--- NOTE | 2021-12-10 15:32 | ED Physician Documentation ---
History of Present Illness - Stated complaint Stated Complaint: LOW IRON/C+ - Chief complaint Chief Complaint: General - Additonal information Additional information: 86-year-old female is brought to the emergency department for a iron trans fusion. She was recently seen and admitted to this hospital for a GI bleed. She was discharged on 28 November. She is also known to be Covid positive. Her care facility had screening labs obtained and it showed a critically low iron saturation of 4. Therefore she was referred to the ER to have iron supplemented. They are also requesting a repeat CT scan of her chest to evaluate the pulmonary nodule that was noted on recent evaluation. The patient appears rather well. She has no tachycardia or hypotension. Room air saturations are 97%. She does have a mild dry cough. Much of the history is limited as patient is demented. History is obtained from the chart as well as EMS and [facility] records Review of Systems Unable to obtain: Dementia Constitutional: denies: Fever, Chills Eyes: reports: Reviewed and negative PD PAST MEDICAL HISTORY - Past Medical History Cardiovascular: Congestive heart failure, Arrhythmia, Valve disorder Neuro: Dementia Endocrine/Autoimmune: HyPOthyroidism Psych: Depression, Eating disorder - Past Surgical History Past Surgical History: Yes Cardiovascular: Valve replacement - Present Medications Home Medications: Ambulatory Orders Medication Instructions Recorded Confirmed Acetaminophen [Acetaminophen Extra 500 mg PO BID 11/26/21 11/26/21 Strength] Acetaminophen [Acetaminophen Extra 500 mg PO Q8H PRN 11/26/21 11/26/21 Strength] Albuterol Sulfate [Proair 2 puffs INH Q6H PRN 11/26/21 11/26/21 Respiclick] Budesonide/Formoterol Fumarate 2 puffs INH BID 11/26/21 11/26/21 [Symbicort 160-4.5 Mcg Inhaler] Ferrous Sulfate 325 mg PO BIDWM 11/26/21 11/26/21 Gabapentin [Neurontin] 100 mg PO BID 11/26/21 11/26/21 Gabapentin [Neurontin] 100 mg PO DAILY PRN 11/26/21 11/26/21 Levothyroxine Sodium [Synthroid] 88 mcg PO QDAC 11/26/21 11/26/21 Loperamide [Imodium] 2 mg PO QID PRN 11/26/21 11/26/21 Memantine [Namenda] 5 mg PO DAILY 11/26/21 11/26/21 Sertraline [Zoloft] 50 mg PO DAILY 11/26/21 11/26/21 Azithromycin [Zithromax] 250 mg PO DAILY #4 tablet 11/27/21 Pantoprazole [Protonix] 40 mg PO DAILY #30 tablet 11/27/21 - Allergies Allergies/Adverse Reactions: Allergies Allergy/AdvReac Type Severity Reaction Status Date / Time latex AdvReac Mild Unknown Verified 12/10/21 15:05 aspirin AdvReac Unknown Verified 12/10/21 15:05 escitalopram [From Lexapro] AdvReac Unknown Verified 12/10/21 15:05 - Social History Does the pt smoke?: No Smoking Status: Former smoker Does the pt drink ETOH?: No Does the pt have substance abuse?: No - Immunizations Immunizations are current?: Yes - POLST Patient has POLST: Yes PD ED PE NORMAL - General General: Alert and oriented X 3, No acute distress, Well developed/nourished - HEENT HEENT: Atraumatic, Moist mucous membranes - Neck Neck: Supple, no meningeal sign, No adenopathy - Cardiac Cardiac: RRR, No murmur - Respiratory Respiratory: No respiratory distress, Clear bilaterally - Abdomen Abdomen: Normal bowel sounds, Soft, Non tender - Derm Derm: Normal color, Warm and dry, No rash - Extremities Extremities: No deformity, No tenderness to palpate, Normal ROM s pain - Neuro Neuro: Alert and oriented X 3, gear lapper 2-12 intact Eye Opening: Spontaneous Motor: Obeys Commands Verbal: Confused (Confusion at baseline/dementia.) GCS Score: 14 Results - Vitals Vitals: Vital Signs - 24 hr 12/10/21 14:56 Temperature 37.2 C Heart Rate 90 Respiratory 20 Rate Blood Pressure 109/65 O2 Saturation 100 Oxygen O2 Source Room air - Labs Labs: Laboratory Tests 12/10/21 12/10/21 15:20 15:20 WBC 4.8 RBC 3.11 L Hgb 9.1 L Hct 30.2 L MCV 97.1 MCH 29.3 MCHC 30.1 L RDW 16.7 H Plt Count 229 MPV 10.3 Neut # (Auto) 2.4 Lymph # (Auto) 1.7 Bent # (Auto) 0.5 Eos # (Auto) 0.2 Baso # (Auto) 0.0 Absolute Nucleated RBC 0.00 Nucleated RBC % 0.0 Sodium 141 Potassium 3.8 Chloride 103 Carbon Dioxide 29 Anion Gap 9.0 BUN 17 Creatinine 0.5 Estimated GFR (MDRD) 117 Glucose 91 Calcium 8.8 Total Bilirubin 0.6 AST 15 ALT 12 Alkaline Phosphatase 57 Total Protein 5.9 L Albumin 3.3 Globulin 2.6 Albumin/Globulin Ratio 1.3 Lipase 45 PD MEDICAL DECISION MAKING - ED course Complexity details: reviewed results, re-evaluated patient, considered differential, d/w patient ED course: 86-year-old female who is Covid positive was advised to come to the emergency department to have her iron treated. She was seen recently and discharged for a GI bleed. Her anticoagulant has been held but on outpatient screening labs they noted a critically low iron saturation of 4%. Thus she was told to come to the ER. Unfortunately iron infusion therapy is not a possibility through our emergency department. She will be started on iron supplementation orally but her primary care doctor is advised to arrange for outpatient/[facility] therapy if he/she feels that iron infusion is necessary. Today her screening CBC is improved from her recent discharge CBC which is reass uring and a sign if intact more. Again she has no vital sign abnormalities and an unremarkable cardiopulmonary auscultation. They did note that she had a pulmonary nodule on her most recent CT scan completed just 2 weeks ago. Home place is requesting a repeat CT scan to follow-up the pulmonary nodule but is far too soon to do that thus that was also deferred today. Pt is [facility] to [facility] in stable condition Departure - Departure Disposition: 01 Home, Self Care Clinical Impression: Iron deficiency anemia Qualifiers: Iron deficiency anemia type: unspecified iron deficiency Qualified Code(s): D50.9 - Iron deficiency anemia, unspecified Condition: Stable Record reviewed to determine appropriate education?: Yes Comments: Q[place]a was seen in the emergency department today for iron deficiency. Unfortunately the emergency department does not have the capacity to provide iron transfusions. This is something that must be arranged through the primary care provider and can be done through the [facility] clinic. Her hemoglobin today is 9.1. This is markedly improved from her most recent hemoglobin which was 7.9. This is an indication that her anemia is improving and her bone marrow is working. When she was recently hospitalized a CT scan did show a small pulmonary nodule. It is too soon to repeat the CT scan at less than [address] scan should be repeated at a 3-month interval. This is something her primary care provider must arrange as an outpatient.
[2021-12-10 15:41] LABS: ALBUMIN 3.3 g/dL (3.2-5.5); ALBUMIN/GLOBULIN RATIO 1.3 (1.0-2.2); BILIRUBIN,TOTAL 0.6 mg/dL (0.2-1.0); CALCIUM 8.8 mg/dL (8.5-10.3); CREATININE 0.5 mg/dL (0.4-1.0); POTASSIUM 3.8 mmol/L (3.5-5.0); TOTAL PROTEIN 5.9 g/dL (6.7-8.2)
[2021-12-10 17:20] VITALS: BP 130/80
== END 2021-12-10 17:00 | disposition home or self-care (01) ==
LOC: EDUNIT# → ED 14:50
DX: D50.9 Iron deficiency anemia, unspecified (principal); F03.90 Unspecified dementia, unspecified severity, without behavioral disturbance, psychotic disturbance, mood disturbance, and anxiety; Z87.891 Personal history of nicotine dependence; Z95.2 Presence of prosthetic heart valve
CPT/HCPCS: 36415; 80053; 83690; 85025; 99282; 99283

== ENCOUNTER 2021-12-10 17:02 | Outpatient (CLI) | payer MEDICARE, MEDICAID | END 2021-12-10 17:03 | disposition home or self-care (01) | LOC: EMS 17:02 | PROVIDERS: ATTEND Registered Nurse | DX: R41.0 Disorientation, unspecified (principal); U07.1 COVID-19 | CPT/HCPCS: A0425; A0428 ==

== ENCOUNTER 2022-01-06 17:08 | Outpatient (CLI) | payer MEDICARE, MEDICAID | END 2022-01-06 17:09 | disposition critical access hospital (66) | LOC: EMS 17:08 | DX: S62.607A Fracture of unspecified phalanx of left little finger, initial encounter for closed fracture (principal); X58.XXXA Exposure to other specified factors, initial encounter | CPT/HCPCS: A0425; A0429 ==

== ENCOUNTER 2022-01-06 17:25 | Emergency (ER) | payer MEDICARE, MEDICAID ==
[2022-01-06] MEDS ORDERED: LIDOCAINE 2% 10 ML MDV SUBQ ONE (17:50)
[2022-01-06] MEDS ORDERED: LIDOCAINE-MPF 2% 5 ML VIAL SUBQ ONE (18:00)
[2022-01-06] MEDS ORDERED: lidocaine 1% 20 ML MDV ONE (18:03)
--- NOTE | 2022-01-06 18:06 | XRAY Report ---
PROCEDURE: Hand 3 View LT INDICATIONS: L hand pain TECHNIQUE: 3 views of the hand(s) acquired. COMPARISON: None FINDINGS: Bones: Severe osteopenia. Severe degenerative changes of the left wrist. Degenerative changes of the left interphalangeal and metacarpophalangeal joints most pronounced at the thumb. There is a mildly displaced fracture involving the base of the left fifth finger proximal phalanx. No other fractures a re seen. No suspicious bony lesions. Soft tissues: No suspicious soft tissue calcifications. Atherosclerotic calcifications are present. IMPRESSION: 1. Mildly displaced fracture involving the base of the left fifth finger proximal phalanx. 2. Severe diffuse osteopenia. 3. Polyarticular degenerative changes of the left hand with severe left wrist degenerative change. 4. Atherosclerotic vascular disease. Reviewed by: Carlos Eduardo Price MD on 01/06/2022 5:04 PM [place] Approved by: Carlos Eduardo Price MD on 01/06/2022 5:04 PM [place] Station ID: [id number]
--- NOTE | 2022-01-06 18:14 | ED Physician Documentation ---
PD HPI UPPER EXT INJURY - Stated complaint Stated Complaint: LT THUMB INJURY - Chief complaint Chief Complaint: Trauma Ext - History obtained from History obtained from: Patient - History of Present Illness Location: Left, Finger (5th) Type of injury: Fall Where injury occurred: Home Timing - onset: How many days ago (2) Timing - duration: Days (2) Timing - details: Abrupt onset Pain level max: 5 Pain level now: 3 Improved by: Rest Worsened by: Moving, Palpating Associated symptoms: No: Weakness, Numbness, Tingling, Swelling, Discolored - Additonal information Additional information: outpatient xray today showed L 5th digit fracture. sent here for splint. Patient reportedly fell and injured the digit 2 days ago. Review of Systems Constitutional: denies: Fever, Chills GI: denies: Vomiting Musculoskeletal: denies: Neck pain, Back pain Neurologic: denies: Headache PD PAST MEDICAL HISTORY - Past Medical History Cardiovascular: Congestive heart failure, Arrhythmia, Valve disorder Respiratory: Other Neuro: Dementia Endocrine/Autoimmune: HyPOthyroidism GI: None CLOTH GRADER: None : None HEENT: None Psych: Depression, Eating disorder Musculoskeletal: None Derm: None - Past Surgical History Past Surgical History: Yes Cardiovascular: Valve replacement - Present Medications Home Medications: Ambulatory Orders Medication Instructions Recorded Confirmed Acetaminophen [Acetaminophen Extra 500 mg PO BID 11/26/21 01/07/22 Strength] Acetaminophen [Acetaminophen Extra 500 mg PO Q8H PRN 11/26/21 01/07/22 Strength] Albuterol Sulfate [Proair 2 puffs INH Q6H PRN 11/26/21 01/07/22 Respiclick] Budesonide/Formoterol Fumarate 2 puffs INH BID 11/26/21 01/07/22 [Symbicort 160-4.5 Mcg Inhaler] Ferrous Sulfate 325 mg PO BIDWM 11/26/21 01/07/22 Gabapentin [Neurontin] 100 mg PO BID 11/26/21 01/07/22 Gabapentin [Neurontin] 100 mg PO DAILY PRN 11/26/21 01/07/22 Levothyroxine Sodium [Synthroid] 88 mcg PO QDAC 11/26/21 01/07/22 Loperamide [Imodium] 2 mg PO QID PRN 11/26/21 01/07/22 Memantine [Namenda] 5 mg PO DAILY 11/26/21 01/07/22 Sertraline [Zoloft] 50 mg PO DAILY 11/26/21 01/07/22 Pantoprazole [Protonix] 40 mg PO DAILY #30 tablet 11/27/21 01/07/22 - Allergies Allergies/Adverse Reactions: Allergies Allergy/AdvReac Type Severity Reaction Status Date / Time latex AdvReac Mild Unknown Verified 01/07/22 09:08 aspirin AdvReac Unknown Verified 01/07/22 09:08 escitalopram [From Lexapro] AdvReac Unknown Verified 01/07/22 09:08 - Social History Does the pt smoke?: No Smoking Status: Never smoker Does the pt drink ETOH?: No Does the pt have substance abuse?: No - Immunizations Immunizations are current?: Yes - POLST Patient has POLST: Yes PD ED PE NORMAL - Vitals Vital signs reviewed: Yes - General General: No acute distress, Well developed/nourished - HEENT HEENT: Moist mucous membranes - Respiratory Respiratory: No respiratory distress - Derm Derm: Warm and dry - Extremities Extremities: Other (Left 5th digit tenderness, mild deformity proximal phalanx. Neurovascular intact. No open wounds) - Neuro Neuro: Other (Pleasant, mild dementia) Results - Vitals Vitals: Vital Signs - 24 hr 01/06/22 01/06/22 17:32 19:44 Temperature 36.8 C 37 C Heart Rate 78 80 Respiratory 20 14 Rate Blood Pressure 124/75 120/70 O2 Saturation 98 96 Oxygen O2 Source Room air - Rads (name of study) Left hand x-ray Radiology: Final report received, EMP read contemporaneously, See rad report (Left fifth digit fracture, proximal phalanx. Mildly displaced) PD MEDICAL DECISION MAKING - ED course Complexity details: reviewed results, re-evaluated patient, considered differential, d/w patient ED course: 86-year-old female with a left fifth digit fracture, proximal phalanx. Placed in a thumb splint. The area was anesthetized with 2% lidocaine. We will have the patient follow-up with orthopedics for further care. Neurovascularly intact. No open fracture. Patient counseled regarding signs and symptoms for which I believe and urgent re-evaluation would be necessary. Patient with good understanding of and agreement to plan and is comfortable going home at this time This document was made in part using voice recognition software. While efforts are made to proofread this document, sound alike and grammatical errors may occur. IMPRESSION: 1. Mildly displaced fracture involving the base of the left fifth finger proximal phalanx. 2. Severe diffuse osteopenia. 3. Polyarticular degenerative changes of the left hand with severe left wrist degenerative change. 4. Atherosclerotic vascular disease. Departure - Departure Disposition: 01 Home, Self Care Clinical Impression: Proximal phalanx fracture of finger Qualifiers: Encounter type: initial encounter Finger: little finger Fracture type: closed Fracture alignment: displaced Laterality: left Qualified Code(s): S62.617A - Displaced fracture of proximal phalanx of left little finger, initial encounter for closed fracture Condition: Good Instructions: ED Fx Finger Closed Follow-Up: Orthopedic Care [Provider Group] - Within 1 week Comments: The finger should stay splinted together until you are seen by orthopedics. Please follow-up with your doctor and orthopedics for further care. Return if you worsen. Discharge Date/Time: 01/06/22 19:44
[2022-01-06 19:46] VITALS: BP 120/70
== END 2022-01-06 19:44 | disposition home or self-care (01) ==
LOC: EDUNIT# → ED 17:25
DX: S62.617A Displaced fracture of proximal phalanx of left little finger, initial encounter for closed fracture (principal); W19.XXXA Unspecified fall, initial encounter; I50.9 Heart failure, unspecified; Z95.2 Presence of prosthetic heart valve
CPT/HCPCS: 96372; 99283; 99284

== ENCOUNTER 2022-01-06 19:46 | Outpatient (CLI) | payer MEDICARE, MEDICAID | END 2022-01-06 19:47 | disposition home or self-care (01) | LOC: EMS 19:46 | PROVIDERS: ATTEND Emergency Medicine | DX: F03.90 Unspecified dementia, unspecified severity, without behavioral disturbance, psychotic disturbance, mood disturbance, and anxiety (principal) | CPT/HCPCS: A0425; A0428 ==

== ENCOUNTER 2022-01-14 08:00 | Outpatient (CLI) | payer MEDICARE, MEDICAID ==
--- NOTE | 2022-01-14 10:31 | XRAY Report ---
PROCEDURE: Finger(s) LT INDICATIONS: POST REDUCTION 5TH FINGER TECHNIQUE: 3 views of the left hand and little finger. COMPARISON: FINDINGS: Bones: There is a mildly displaced fracture involving the base of the left fifth proximal phalanx. Soft tissues: No suspicious soft tissue calcifications. IMPRESSION: Mildly displaced fracture involving the base of the left fifth proximal phalanx. Reviewed by: Sammy Morales on 01/14/2022 10:30 AM [facility] Approved by: Sammy Morales on 01/14/2022 10:30 AM [facility] Station ID: [id number]
== END 2022-01-14 23:59 | disposition home or self-care (01) ==
LOC: DI.WOS 08:00
PROVIDERS: ATTEND Orthopaedic Surgery
DX: S62.617A Displaced fracture of proximal phalanx of left little finger, initial encounter for closed fracture (principal)

== ENCOUNTER 2022-03-01 09:33 | Outpatient (CLI) | payer MEDICARE, MEDICAID ==
--- NOTE | 2022-03-02 09:37 | CT Report ---
PROCEDURE: CHEST WO INDICATIONS: LUNG NODULE TECHNIQUE: Noncontrast 1mm axial images were acquired from the pulmonary apices to the posterior costophrenic an gles. Axial 5 mm soft tissue kernel reconstructions were performed as well as 8 mm axial MIP and cor onal and sagittal 5 mm reformations. For radiation dose reduction, the following was used: automate d exposure control, adjustment of mA and/or kV according to patient size. COMPARISON: CT chest with, 07/21/2021. FINDINGS: Image quality: Excellent. Lungs and pleura: Multiple unmatched identified. Reference nodules are listed in the following: Nodule 1: 6 mm; left lower lobe; series 4 image 197; groundglass; unchanged. Nodule 2: 8 mm; Left lower lobe series 4 image 231; groundglass; unchanged. Nodule 3: 3 mm; left upper lobe; series 4 image 34; solid; unchanged. Nodule 4: 8 mm; right lower lobe; series 4 image 160; groundglass; new. Nodule 5: 4 mm; right upper lobe; series 4 image 106; solid; unchanged. There is right hemidiaphragm elevation. Bilateral subpleural scars and septal thickening. No pleural effusions or pneumothorax. Central and peripheral airways are patent and normal in caliber. Mediastinum: Heart size is normal. There is a filling pelvic prosthesis. Moderate coronary calcific ation. No pericardial effusion. There are borderline enlarged mediastinal lymph nodes measuring up to 1 cm in short axis. Thoracic aorta and central pulmonary arteries are normal in size. Severe aorti c atherosclerosis. Esophagus is normal in caliber. No hiatal hernia. Bones and chest wall: No suspicious bony lesions. No vertebral body compression fractures. Scolios is and degenerative changes in thoracic and upper lumbar spine. Sternotomy. No axillary or supraclavi cular adenopathy by size criteria. The thyroid is normal in size and there are no incidental finding s. Abdomen: Visualized upper abdominal solid organs and bowel loops appear normal in the absence of con trast. IMPRESSION: 1. Multiple pulmonary nodules are present bilaterally. An 8 mm in the right lower lobe is new. Other nodules are unchanged. A 3 month follow-up chest CT is recommended. Please see enclosed follow-up rec ommendation. 2. Bilateral subpleural scars and septal thickening, most likely inflammatory or infectious etiology. 3. Right hemidiaphragm elevation. 4. Borderline enlarged mediastinal lymph nodes, most likely reactive. 5. Severe atherosclerosis. Fleischner Society criteria for SOLID lung nodule followup. Nodule size (mm)Low-risk patientHigh-risk patient "d4No follow-up neededFollow-up at 12 mo; if no change, no further follow-up >3-4Hcjmvl-md CT at 12 mo; if no change, no further follow-up needed.Initial follow-up CT at 6-12 mo, then 18-24 mo if no change. >6-8Initial follow-up CT at 6-12 mo, then 18-24 mo if no change. Initial follow-up CT at 3-6 mo, then 9-12 mo and 24 mo if no change. >8Follow-up CT at 3, 9, 24 mo. Or PET and/or biopsy.Same as for low-risk pts. Fleischner Society criteria for SUB-SOLID lung nodule followup. Solitary pure ground-glass nodules 5 mm or lessNo followup needed. >5 mm3 mo follow-up CT to confirm persistence. Then annual CT for 3 years. Part-solid nodules3 mo follow-up CT to confirm persistence. If persistent with solid component <5 mm , annual CT for at least 3 years. If solid component is 5 mm or more, biopsy or surgical resection. Consider PET-CT for lesions > 10 mm. Multiple sub-solid nodules Pure ground glass nodules [address] at 2 and 4 years. Pure ground glass nodules >5 mm without dominant lesion. [address] to confirm persistence, then annual followup CT for at least 3 years. Dominant nodule(s) with part-solid or solid component. [address] to confirm persistence. If persistent, consider biopsy or surgical resection, andrew if lesions have >5 mm solid component. Reviewed by: Shelley Spence MD on 03/02/2022 9:36 AM PDT Approved by: Shelley Spence MD on 03/02/2022 9:36 AM PDT Station ID: [id number]
== END 2022-03-01 09:34 | disposition home or self-care (01) ==
LOC: DI 09:33
PROVIDERS: ATTEND Registered Nurse
DX: R91.8 Other nonspecific abnormal finding of lung field (principal); J98.6 Disorders of diaphragm; R59.0 Localized enlarged lymph nodes; I70.0 Atherosclerosis of aorta; I27.0 Primary pulmonary hypertension

== ENCOUNTER 2022-04-06 10:09 | Outpatient (CLI) | payer MEDICARE, MEDICAID ==
--- NOTE | 2022-04-06 11:26 | XRAY Report ---
PROCEDURE: Hand 3 View LT INDICATIONS: LEFT GREAT FINGER BRUISING TECHNIQUE: 3 views of the hand(s) acquired. COMPARISON: 3 views of the hand dated 01/06/2022 FINDINGS: Bones: There is diffuse interphalangeal joint space narrowing. There is collapse and severe degenerat favio change of the carpal carpal joints and the radiocarpal joint. Severe degenerative changes are pre sent at the first CMC joint. There is a healing fracture of the proximal left fifth phalanx. No acute fracture or dislocation visualized. Soft tissues: No suspicious soft tissue calcifications. IMPRESSION: 1. Advanced degenerative changes. Differential considerations include both osteoarthritis and erosive arthritis. 2. No acute fractures visualized. If pain persists, repeat imaging in 5-7 days could be used to furth er evaluate for occult fracture. Reviewed by: Casie Goodrich MD on 04/06/2022 11:24 AM PDT Approved by: Casie Goodrich MD on 04/06/2022 11:24 AM PDT Station ID: [id number]
== END 2022-04-06 10:10 | disposition home or self-care (01) ==
LOC: DI 10:09
PROVIDERS: ATTEND Nurse Practitioner Family
DX: M19.041 Primary osteoarthritis, right hand (principal)

== ENCOUNTER 2022-05-24 11:59 | Outpatient (CLI) | payer MEDICARE, MEDICAID | END 2022-05-24 12:00 | disposition critical access hospital (66) | LOC: EMS 11:59 | DX: R07.81 Pleurodynia (principal); R07.1 Chest pain on breathing | CPT/HCPCS: A0425; A0429 ==

== ENCOUNTER 2022-05-24 12:17 | Emergency (ER) | payer MEDICARE, MEDICAID ==
--- NOTE | 2022-05-24 12:29 | ED Physician Documentation ---
History of Present Illness - Stated complaint Stated Complaint: R RIB PX - Chief complaint Chief Complaint: Resp - History obtained from History obtained from: Patient, EMS - History of Present Illness Timing: Last night - Additonal information Additional information: 87yoF with PMH dementia, CHF, Afib not on anticoagulation presents by EMS from [facility] care facility for R sided rib/abdominal pain that began last night. No known trauma.Patient states that pain started last night when she was sleeping. Worse to touch. Patient is otherwise an unreliable historian, she states that she has no known medical condition and does not take any medications. EMS reported that they picked her up from a memory care facility, however patient states that she lives at home alone. EMS confirms no known trauma. 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 : None HEENT: None Psych: Depression, Eating disorder Musculoskeletal: None Derm: None - Past Surgical History Past Surgical History: Yes Cardiovascular: Valve replacement - Present Medications Home Medications: Ambulatory Orders Medication Instructions Recorded Confirmed Acetaminophen [Acetaminophen Extra 500 mg PO BID 11/26/21 01/07/22 Strength] Acetaminophen [Acetaminophen Extra 500 mg PO Q8H PRN 11/26/21 01/07/22 Strength] Albuterol Sulfate [Proair 2 puffs INH Q6H PRN 11/26/21 01/07/22 Respiclick] Budesonide/Formoterol Fumarate 2 puffs INH BID 11/26/21 01/07/22 [Symbicort 160-4.5 Mcg Inhaler] Ferrous Sulfate 325 mg PO BIDWM 11/26/21 01/07/22 Gabapentin [Neurontin] 100 mg PO BID 11/26/21 01/07/22 Gabapentin [Neurontin] 100 mg PO DAILY PRN 11/26/21 01/07/22 Levothyroxine Sodium [Synthroid] 88 mcg PO QDAC 11/26/21 01/07/22 Loperamide [Imodium] 2 mg PO QID PRN 11/26/21 01/07/22 Memantine [Namenda] 5 mg PO DAILY 11/26/21 01/07/22 Sertraline [Zoloft] 50 mg PO DAILY 11/26/21 01/07/22 Pantoprazole [Protonix] 40 mg PO DAILY #30 tablet 11/27/21 01/07/22 polyethylene glycoL 3350 [Miralax] 17 gm PO DAILY PRN #1 bottle 05/24/22 - Allergies Allergies/Adverse Reactions: Allergies Allergy/AdvReac Type Severity Reaction Status Date / Time latex AdvReac Mild Unknown Verified 05/24/22 12:25 aspirin AdvReac Unknown Verified 05/24/22 12:25 escitalopram [From Lexapro] AdvReac Unknown Verified 05/24/22 12:25 - Social History Does the pt smoke?: No Smoking Status: Never smoker Does the pt drink ETOH?: No Does the pt have substance abuse?: No - Immunizations Immunizations are current?: Yes - POLST Patient has POLST: Yes PD ED PE NORMAL - Vitals Vital signs reviewed: Yes - General General: No acute distress, Well developed/nourished, Other (Oriented x1) - HEENT HEENT: Atraumatic, PERRL, EOMI, Ears normal, Pharynx benign - Neck Neck: Supple, no meningeal sign, No bony TTP, No bruit - Cardiac Cardiac: RRR, No murmur, No gallop, Strong equal pulses - Respiratory Respiratory: No respiratory distress, Clear bilaterally - Abdomen Abdomen: Soft, Non distended, Other (TTP in RUQ) - Female Female : Deferred - Back Back: No CVA TTP, No spinal TTP - Derm Derm: Normal color, Warm and dry, No rash - Extremities Extremities: No deformity, No tenderness to palpate, Normal ROM s pain, No calf tenderness / cord - Neuro Neuro: candy feeder 2-12 intact, No motor deficit, No sensory deficit, Normal speech, Other (AOx1) - Psych Psych: Normal mood, Normal affect Results - Vitals Vitals: Vital Signs - 24 hr 05/24/22 05/24/22 05/24/22 12:20 12:27 14:27 Temperature 37.0 C 37.0 C 36.5 C Heart Rate 80 80 80 Respiratory 19 19 14 Rate Blood Pressure 114/65 114/65 109/54 L O2 Saturation 99 99 94 05/24/22 05/24/22 15:38 16:23 Temperature Heart Rate 81 86 Respiratory 14 19 Rate Blood Pressure 101/54 L 120/73 O2 Saturation 92 99 Oxygen O2 Source Room air - Labs Labs: Laboratory Tests 05/24/22 05/24/22 05/24/22 12:38 12:38 12:38 WBC 7.8 RBC 4.23 Hgb 13.1 Hct 40.9 MCV 96.7 MCH 31.0 MCHC 32.0 RDW 14.5 Plt Count 222 MPV 9.8 Neut # (Auto) 5.0 Lymph # (Auto) 1.7 [place] # (Auto) 0.7 Eos # (Auto) 0.3 Baso # (Auto) 0.0 Absolute Nucleated RBC 0.00 Nucleated RBC % 0.0 Sodium 136 Potassium 4.1 Chloride 100 L Carbon Dioxide 27 Anion Gap 9.0 BUN 20 Creatinine 0.5 Estimated GFR (MDRD) 117 Glucose 91 Calcium 9.3 Total Bilirubin 0.5 AST 17 ALT 12 Alkaline Phosphatase 56 Troponin I High Sens 6.7 Total Protein 6.4 L Albumin 3.6 Globulin 2.8 Albumin/Globulin Ratio 1.3 Lipase 42 PD MEDICAL DECISION MAKING - ED course ED course: Patient sent in by EMS for right-sided rib/upper quadrant pain that is worse with palpation. Chest x-ray showed possible pneumonia, empirically covered with Rocephin and azithromycin. CT of the abdomen pelvis shows no evidence of the pneumonia thought to be seen on chest x-ray. Canceled azithromycin, patient is already received Rocephin. CT significant only for extensive stool burden, patient has chronic right-sided elevation of her right hemidiaphragm, additionally she has loops of bowel next to her liver in her RUQ. Given palpable reproducible nature of pain in RUQ of abdomen as well as no evidence of effusion or pneumonia on CT scan will give laxative. Started on daily miralax. Discharged in stable condition back to [facility] Departure - Departure Disposition: 01 Home, Self Care Clinical Impression: Rib pain on right side, Constipation by delayed colonic transit Condition: Good Instructions: ED Constipation Prescriptions: polyethylene glycoL 3350 [Miralax] 17 gm PO DAILY PRN #1 bottle PRN Reason: Constipation Comments: TAKE TYLENOL AND MOTRIN NEEDED FOR PAIN. TAKE DAILY MIRALAX FOR CONSTIPATION RELIEF Discharge Date/Time: 05/24/22 17:14
[2022-05-24 12:44] LABS: BASOPHILS % (AUTO) 0.5 %; EOSINOPHILS # (AUTO) 0.3 10^3/uL (0.0-0.7); EOSINOPHILS % (AUTO) 3.7 %; HCT - HEMATOCRIT 40.9 % (37.0-47.0); HGB - HEMOGLOBIN 13.1 g/dL (12.0-16.0); LYMPHOCYTES # (AUTO) 1.7 10^3/uL (1.5-3.5); LYMPHOCYTES % (AUTO) 22.4 %; MEAN CORPUSCULAR VOLUME 96.7 fL (81.0-99.0); MEAN PLATELET VOLUME 9.8 fL (7.9-10.8); MONOCYTES # (AUTO) 0.7 10^3/uL (0.0-1.0); MONOCYTES % (AUTO) 8.9 %; NEUTROPHILS % (AUTO) 64.4 %; PLT - PLATELET COUNT 222 10^3/uL (130-450); RED BLOOD COUNT 4.23 10^6/uL (4.20-5.40); RED CELL DISTRIBUTION WIDTH 14.5 % (12.0-15.0); WHITE BLOOD COUNT 7.8 x10^3/uL (4.8-10.8)
[2022-05-24 13:10] LABS: ALBUMIN 3.6 g/dL (3.2-5.5); ALBUMIN/GLOBULIN RATIO 1.3 (1.0-2.2); BILIRUBIN,TOTAL 0.5 mg/dL (0.2-1.0); CALCIUM 9.3 mg/dL (8.5-10.3); CREATININE 0.5 mg/dL (0.4-1.0); POTASSIUM 4.1 mmol/L (3.5-5.0); TOTAL PROTEIN 6.4 g/dL (6.7-8.2)
--- NOTE | 2022-05-24 13:34 | XRAY Report ---
PROCEDURE: Chest 1 View X-Ray INDICATIONS: R LOWER RIB PAIN TECHNIQUE: One view of the chest was acquired. COMPARISON: CT chest 03/01/2022, chest x-ray 11/27/2021 FINDINGS: Surgical changes and devices: Sternal wires. Tendon anchor screws are noted overlying the right humer us. Lungs and pleura: There is a mild right effusion. Mediastinum: Mediastinal contours appear normal. Heart size is enlarged.. Bones and chest wall: No suspicious bony lesions. Overlying soft tissues appear unremarkable. IMPRESSION: Interval development of mild right effusion. Underlying areas of pneumonia, atelectasis or potentiall y mass lesion cannot be excluded. Recommend interval follow-up after appropriate therapy to document resolution. Reviewed by: Sherine Rehman MD on 05/24/2022 1:33 PM PDT Approved by: Sherine Rehman MD on 05/24/2022 1:33 PM PDT Station ID: [id number]
[2022-05-24] MEDS ORDERED: AZITHROMYCIN INJ 500 MG in SODIUM CHLORIDE 0.9% 250 ML IV STA (14:41)
[2022-05-24] MEDS ORDERED: cefTRIAXone 1 GM in SODIUM CHLORIDE 0.9% MINIBAG 100 ML IV STA (14:41)
[2022-05-24] MEDS ORDERED: ACETAMINOPHEN 325 MG TABLET PO STA (15:18)
[2022-05-24] MEDS ORDERED: MAGNESIUM CITRATE 296 ML BOTTLE PO STA (15:18)
--- NOTE | 2022-05-24 15:38 | CT Report ---
PROCEDURE: Abdomen/Pelvis WO INDICATIONS: RUQ ABDOMINAL PAIN TECHNIQUE: Noncontrast 5 mm thick sections acquired from the diaphragms to the symphysis. 5 mm coronal and sagi ttal reformats were then performed. For radiation dose reduction, the following was used: automated exposure control, adjustment of mA and/or kV according to patient size. COMPARISON: CT abdomen pelvis 11/26/2021 FINDINGS: Image quality: Excellent. ABDOMEN: Lung bases: Lung bases are clear. Heart size is enlarged with coronary calcifications. Solid organs: Liver and spleen are normal in size. Gallbladder has been removed. Mild appearance o f biliary ductal dilation is unchanged compared to prior exam, likely postcholecystectomy sequela. Pa ncreas is normal in contours. No adrenal nodules. Kidneys are normal in size, without hydronephrosi s or nephrolithiasis. Peritoneum and bowel: Unenhanced bowel loops demonstrate normal wall thickness and caliber. No free fluid or air. Moderate colonic stool is present. Right hemidiaphragm is elevated, unchanged. Nodes and vessels: No retroperitoneal or mesenteric adenopathy by size criteria. Aorta and inferior vena cava are normal in caliber. Miscellaneous: No ventral hernias. PELVIS: Genitourinary: Bladder wall thickness is normal. Miscellaneous: There is a left femoral fat-containing hernia is noted. Bones: No suspicious bony lesions. No vertebral body compression fractures. Old right pubic rami f ractures are present. Present. IMPRESSION: Significant colonic stool consistent with constipation. No obstruction. Reviewed by: Sherine Rehman MD on 05/24/2022 3:36 PM PDT Approved by: Sherine Rehman MD on 05/24/2022 3:36 PM PDT Station ID: [id number]
[2022-05-24 16:24] VITALS: BP 120/73
== END 2022-05-24 17:14 | disposition home or self-care (01) ==
LOC: EDUNIT# → ED 12:17
DX: K59.00 Constipation, unspecified (principal); R07.81 Pleurodynia
CPT/HCPCS: 36415; 71045; 74176; 80053; 83690; 84484; 85025; 93005; 96365; 99281; 99285; A9270

== ENCOUNTER 2022-06-03 12:58 | Outpatient (CLI) | payer MEDICARE, MEDICAID ==
--- NOTE | 2022-06-04 08:48 | CT Report ---
PROCEDURE: CHEST WO INDICATIONS: LUNG NODULE TECHNIQUE: Noncontrast 1mm axial images were acquired from the pulmonary apices to the posterior costophrenic an gles. Axial 5 mm soft tissue kernel reconstructions were performed as well as 8 mm axial MIP and cor onal and sagittal 5 mm reformations. For radiation dose reduction, the following was used: automate d exposure control, adjustment of mA and/or kV according to patient size. COMPARISON: CT chest without, 03/01/2022 and 07/21/2021 FINDINGS: Image quality: Excellent. Lungs and pleura: Lung nodules are again identified. Nodule 1: 6 mm; left lower lobe; series 4 image 195; groundglass; stable. Nodule 2: 8 mm; Left lower lobe series 4 image 231; subsolid; stable. Nodule 4: 8 mm; right lower lobe; series 4 image 157; groundglass; stable. Nodule 5: 4 mm; right upper lobe; series 4 image 105; solid; stable. Bilateral subpleural septal thickening. Right hemidiaphragmatic elevation and right basilar scars and atelectasis appear unchanged. No focal consolidation. No pleural effusions or pneumothorax. Central and peripheral airways are patent and normal in caliber. Mediastinum: Heart size is normal. No pericardial effusion. No mediastinal adenopathy by size crit eria. Thoracic aorta and central pulmonary arteries are normal in size. Severe aortic atheroscleros is. Esophagus is normal in caliber. No hiatal hernia. Bones and chest wall: No suspicious bony lesions. Scoliosis. Degenerative changes in thoracic and u pper lumbar spine. No vertebral body compression fractures. No axillary or supraclavicular adenopath y by size criteria. The thyroid is normal in size and there are no incidental findings. Abdomen: Visualized upper abdominal solid organs and bowel loops appear normal in the absence of con trast. IMPRESSION: 1. Stable pulmonary nodules. Recommend continue follow-up. Next follow-up CT is suggested in 6 months . Fleischner Society criteria for SOLID lung nodule followup. Nodule size (mm)Low-risk patientHigh-risk patient "d4No follow-up neededFollow-up at 12 mo; if no change, no further follow-up >1-2Stwdwd-bi CT at 12 mo; if no change, no further follow-up needed.Initial follow-up CT at 6-12 mo, then 18-24 mo if no change. >6-8Initial follow-up CT at 6-12 mo, then 18-24 mo if no change. Initial follow-up CT at 3-6 mo, then 9-12 mo and 24 mo if no change. >8Follow-up CT at 3, 9, 24 mo. Or PET and/or biopsy.Same as for low-risk pts. Fleischner Society criteria for SUB-SOLID lung nodule followup. Solitary pure ground-glass nodules 5 mm or lessNo followup needed. >5 mm3 mo follow-up CT to confirm persistence. Then annual CT for 3 years. Part-solid nodules3 mo follow-up CT to confirm persistence. If persistent with solid component <5 mm , annual CT for at least 3 years. If solid component is 5 mm or more, biopsy or surgical resection. Consider PET-CT for lesions > 10 mm. Multiple sub-solid nodules Pure ground glass nodules [address] at 2 and 4 years. Pure ground glass nodules >5 mm without dominant lesion. [address] to confirm persistence, then annual followup CT for at least 3 years. Dominant nodule(s) with part-solid or solid component. [address] to confirm persistence. If persistent, consider biopsy or surgical resection, andrew if lesions have >5 mm solid component. Reviewed by: Shelley Spence MD on 06/04/2022 8:47 AM PDT Approved by: Shelley Spence MD on 06/04/2022 8:47 AM PDT Station ID: [id number]
== END 2022-06-03 12:59 | disposition home or self-care (01) ==
LOC: DI 12:58
PROVIDERS: ATTEND Nurse Practitioner Family
DX: R91.8 Other nonspecific abnormal finding of lung field (principal)

== ENCOUNTER 2022-10-27 10:46 | Outpatient (CLI) | payer MEDICARE, MEDICAID | END 2022-10-27 10:47 | disposition critical access hospital (66) | LOC: EMS 10:46 | DX: S01.111A Laceration without foreign body of right eyelid and periocular area, initial encounter (principal); M25.551 Pain in right hip; W18.30XA Fall on same level, unspecified, initial encounter; Y92.092 Bedroom in other non-institutional residence as the place of occurrence of the external cause | CPT/HCPCS: A0425; A0429 ==

== ENCOUNTER 2022-10-27 11:05 | Inpatient (IN) | payer MEDICARE, MEDICAID ==
[2022-10-27] MEDS ORDERED: ONDANSETRON 4 MG/2 ML VIAL IVP STA (11:37)
[2022-10-27] MEDS ORDERED: MORPHINE 2 MG/ML CARPUJECT IVP STA ×3 (11:37→18:38)
--- NOTE | 2022-10-27 11:40 | ED Physician Documentation ---
PD HPI MAJOR TRAUMA - Stated complaint Stated Complaint: GLF - Chief complaint Chief Complaint: Trauma Ext - History obtained from History obtained from: Patient, EMS - Additional information Additional information: This is an 87-year-old woman who presents from an assisted living facility. She has a history of dementia. She reportedly had a ground-level fall. She does not recollect this. She does complain of right hip pain and headache and periorbital pain on the right. No other obvious injuries. 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 : None HEENT: None Psych: Depression, Eating disorder Musculoskeletal: None Derm: None - Past Surgical History Past Surgical History: Yes Cardiovascular: Valve replacement - Present Medications Home Medications: Ambulatory Orders Medication Instructions Recorded Confirmed Acetaminophen [Acetaminophen Extra 500 mg PO BID 11/26/21 01/07/22 Strength] Acetaminophen [Acetaminophen Extra 500 mg PO Q8H PRN 11/26/21 01/07/22 Strength] Albuterol Sulfate [Proair 2 puffs INH Q6H PRN 11/26/21 01/07/22 Respiclick] Budesonide/Formoterol Fumarate 2 puffs INH BID 11/26/21 01/07/22 [Symbicort 160-4.5 Mcg Inhaler] Ferrous Sulfate 325 mg PO BIDWM 11/26/21 01/07/22 Gabapentin [Neurontin] 100 mg PO BID 11/26/21 01/07/22 Gabapentin [Neurontin] 100 mg PO DAILY PRN 11/26/21 01/07/22 Levothyroxine Sodium [Synthroid] 88 mcg PO QDAC 11/26/21 01/07/22 Loperamide [Imodium] 2 mg PO QID PRN 11/26/21 01/07/22 Memantine [Namenda] 5 mg PO DAILY 11/26/21 01/07/22 Sertraline [Zoloft] 50 mg PO DAILY 11/26/21 01/07/22 Pantoprazole [Protonix] 40 mg PO DAILY #30 tablet 11/27/21 01/07/22 polyethylene glycoL 3350 [Miralax] 17 gm PO DAILY PRN #1 bottle 05/24/22 - Allergies Allergies/Adverse Reactions: Allergies Allergy/AdvReac Type Severity Reaction Status Date / Time latex AdvReac Mild Unknown Verified 10/27/22 11:17 aspirin AdvReac Unknown Verified 10/27/22 11:17 escitalopram [From Lexapro] AdvReac Unknown Verified 10/27/22 11:17 - Social History Does the pt smoke?: No Smoking Status: Never smoker Does the pt drink ETOH?: No Does the pt have substance abuse?: No - Immunizations Immunizations are current?: Yes - POLST Patient has POLST: Yes PD ED PE NORMAL - Vitals Vital signs reviewed: Yes - General General: Well developed/nourished, Other (She is alert and oriented to person only, infectious to be prompted, when I asked her her name she pauses and then I asked her if her name was "Quita" and she said yes. She is clutching her right hip.) - HEENT HEENT: PERRL, EOMI, Other (Right periorbital ecchymosis and a 2 cm laceration superolateral to the right eyebrow. No facial bony tenderness.) - Neck Neck: No bony TTP - Cardiac Cardiac: RRR, No murmur - Respiratory Respiratory: No respiratory distress, Clear bilaterally - Abdomen Abdomen: Normal bowel sounds, Soft, Non tender - Back Back: No CVA TTP, No spinal TTP - Derm Derm: Normal color, Warm and dry - Extremities Extremities: Other (Right hip is quite tender and she has exquisite pain with range of motion of the right hip. She is holding it internally rotated but it does not appear particularly shortened.) - Neuro Eye Opening: Spontaneous Motor: Obeys Commands Verbal: Confused GCS Score: 14 Results - Vitals Vitals: Vital Signs - 24 hr 10/27/22 10/27/22 11:17 13:22 Temperature 36.6 C 36.6 C Heart Rate 74 71 Respiratory 18 18 Rate Blood Pressure 123/57 L 122/59 L O2 Saturation 93 96 If not protocol 2 : Oxygen Flow, liters/minute Oxygen O2 Source Nasal cannula - EKG (time done) 1159 Rate: Rate (enter#) (80) Rhythm: NSR Farrell: Normal Intervals: Other (short pr) QRS: LVH Ischemia: No: ST elevation c/w ischemia, ST depression Other comments: Other comments (Significant artifact makes the EKG almost uninterpretable.) - Labs Labs: Laboratory Tests 10/27/22 10/27/22 10/27/22 11:48 11:48 11:48 WBC 9.1 RBC 4.51 Hgb 14.1 Hct 45.2 MCV 100.2 H MCH 31.3 H MCHC 31.2 L RDW 13.6 Plt Count 222 MPV 9.7 Neut # (Auto) 7.2 H Lymph # (Auto) 1.3 L Mccl[place] # (Auto) 0.4 Eos # (Auto) 0.1 Baso # (Auto) 0.1 Absolute Nucleated RBC 0.00 Nucleated RBC % 0.0 PT 10.8 INR 1.0 Sodium 138 Potassium 3.8 Chloride 99 L Carbon Dioxide 29 Anion Gap 10.0 BUN 16 Creatinine 0.5 Estimated GFR (MDRD) 117 Glucose 118 H Calcium 9.4 - Rads (name of study) Single view chest x-ray shows chronic elevation of the right hemidiaphragm, changes of sternotomy and valvuloplasty. Radiology: Final report received, EMP read indepedently 2 view x-ray right hip demonstrates femoral neck fracture Radiology: Final report received, EMP read indepedently CT of the head without contrast does not show any traumatic abnormality Radiology: Final report received, EMP read indepedently CT of the cervical spine is without evidence of trauma. Radiology: Final report received, EMP read indepedently Procedures - Laceration (location) R forehead Length in cm: 2 Wound type: Linear, Superficial Wound preparation: Irrigated copiously NS Skin layer closure: Dermabond Other: Patient tolerated well, No complications, Neurovascular intact PD Medical Decision Making - ED course ED course: 87-year-old woman [facility] with a ground- level fall and severe hip pain, found to have a hip fracture. Spoke with Dr. Dent who will admit, we did delay admission until CT of the head and cervical spine were done to make sure there was not other trauma that would necessitate a tertiary facility, there was not. I spoke with her niece, Anya Mack, she is her POA. She is available at [phone] or alternatively at [phone]. She understands the plan. Departure - Departure Disposition: [facility] DC/Xfer Clinical Impression: Displaced fracture of right femoral neck, Ground-level fall Dementia Qualifiers: Dementia type: unspecified type Dementia severity: severe Dementia behavioral or psychological symptom: without behavioral, psychotic, or mood disturbance or anxiety Qualified Code(s): F03.C0 - Unspecified dementia, severe, without behavioral disturbance, psychotic disturbance, mood disturbance, and anxiety Head injury Qualifiers: Encounter type: initial encounter Qualified Code(s): S09.90XA - Unspecified injury of head, initial encounter Facial laceration Qualifiers: Encounter type: initial encounter Qualified Code(s): S01.81XA - Laceration without foreign body of other part of head, initial encounter Condition: Serious
[2022-10-27 11:57] LABS: BASOPHILS # (AUTO) 0.1 10^3/uL (0.0-0.1); BASOPHILS % (AUTO) 0.5 %; EOSINOPHILS # (AUTO) 0.1 10^3/uL (0.0-0.7); EOSINOPHILS % (AUTO) 1.5 %; HCT - HEMATOCRIT 45.2 % (37.0-47.0); HGB - HEMOGLOBIN 14.1 g/dL (12.0-16.0); LYMPHOCYTES # (AUTO) 1.3 10^3/uL (1.5-3.5); LYMPHOCYTES % (AUTO) 14.4 %; MEAN CORPUSCULAR HEMOGLOBIN 31.3 pg (27.0-31.0); MEAN CORPUSCULAR HGB CONC 31.2 g/dL (32.0-36.0); MEAN CORPUSCULAR VOLUME 100.2 fL (81.0-99.0); MEAN PLATELET VOLUME 9.7 fL (7.9-10.8); MONOCYTES # (AUTO) 0.4 10^3/uL (0.0-1.0); MONOCYTES % (AUTO) 4.8 %; NEUTROPHILS # (AUTO) 7.2 10^3/uL (1.5-6.6); NEUTROPHILS % (AUTO) 78.5 %; PLT - PLATELET COUNT 222 10^3/uL (130-450); RED BLOOD COUNT 4.51 10^6/uL (4.20-5.40); RED CELL DISTRIBUTION WIDTH 13.6 % (12.0-15.0); WHITE BLOOD COUNT 9.1 x10^3/uL (4.8-10.8)
[2022-10-27 12:00] LABS: PT - PROTHROMBIN TIME 10.8 secs (9.9-12.6)
[2022-10-27 12:08] LABS: CALCIUM 9.4 mg/dL (8.5-10.3); CREATININE 0.5 mg/dL (0.4-1.0); POTASSIUM 3.8 mmol/L (3.5-5.0)
--- NOTE | 2022-10-27 12:45 | XRAY Report ---
PROCEDURE: Hip w/Pelvis 2-3V RT INDICATIONS: hip inj TECHNIQUE: AP pelvis with lateral view(s) of the right hip(s). COMPARISON: None. FINDINGS: Bones: There is a mildly displaced fracture of the base of the right femoral neck, which also involve s the lesser trochanter. No dislocation. Pelvic ring appears intact. No suspicious bony lesions. Soft tissues: The visualized bowel gas pattern is normal. No suspicious soft tissue calcifications. IMPRESSION: Fracture involving the base of femoral neck/trochanteric region of the right hip. Reviewed by: Landon Cintron MD on 10/27/2022 12:43 PM PST Approved by: Landon Cintron MD on 10/27/2022 12:43 PM PST Station ID: [id number]
--- NOTE | 2022-10-27 12:46 | XRAY Report ---
PROCEDURE: Chest 1 View X-Ray INDICATIONS: Hip fracture TECHNIQUE: One view of the chest was acquired. COMPARISON: 05/24/2022 FINDINGS: Surgical changes and devices: Midline sternotomy, valvuloplasty Lungs and pleura: Elevation of right hemidiaphragm, as before. No gross infiltrates. Mediastinum: Mediastinal contours appear normal. Heart size is normal. Bones and chest wall: No suspicious bony lesions. Overlying soft tissues appear unremarkable. IMPRESSION: No gross infiltrates. Reviewed by: Landon Cintron MD on 10/27/2022 12:44 PM PST Approved by: Landon Cintron MD on 10/27/2022 12:44 PM PST Station ID: [id number]
[2022-10-27] MEDS ORDERED: TETANUS/DIPHTHERIA/PERTUSSIS 0.5 ML SYRINGE IM ONE (14:01)
--- NOTE | 2022-10-27 14:12 | CT Report ---
PROCEDURE: HEAD WO INDICATIONS: head injury. Ground-level fall. TECHNIQUE: Noncontrast 4.5 mm thick angled axial sections acquired from the foramen magnum to the vertex. For r adiation dose reduction, the following was used: automated exposure control, adjustment of mA and/or kV according to patient size. COMPARISON: None. FINDINGS: CSF spaces: Basal cisterns are patent. No extra-axial fluid collections. Ventricles are normal in size and shape. Brain: Diffuse symmetric prominence of ventricles and sulci compatible with cerebral volume loss. Ill -defined periventricular white matter hypodensities present, likely microvascular ischemic change. No midline shift. No intracranial masses or hemorrhage. De Los Santos-white matter interface is normal. Skull and face: Calvarium and visualized facial bones are intact, without suspicious lesions. Sinuses: Bilateral maxillary sinus mucoperiosteal thickening. IMPRESSION: No intracranial hemorrhage or other acute intracranial abnormality. Reviewed by: Filemon Tan MD on 10/27/2022 2:10 PM PST Approved by: Filemon Tan MD on 10/27/2022 2:10 PM PST Station ID: [id number]
--- NOTE | 2022-10-27 14:19 | CT Report ---
PROCEDURE: CERVICAL SPINE WO INDICATIONS: head injury TECHNIQUE: Noncontrast 3 mm thick sections acquired from the skull base to the T4 level. Sagittal and coronal r eformats were then constructed. For radiation dose reduction, the following was used: automated exp osure control, adjustment of mA and/or kV according to patient size. COMPARISON: None. FINDINGS: Bones: No acute fractures or dislocations. Visualized superior ribs are intact. Pronounced multile princess degenerative changes present throughout the cervical spine. Soft tissues: Prevertebral soft tissues are normal in thickness. No paravertebral hematomas. No ap ical pneumothoraces. IMPRESSION: No acute cervical spine fracture visualized. Reviewed by: Filemon Tan MD on 10/27/2022 2:18 PM PST Approved by: Filemon Tan MD on 10/27/2022 2:18 PM PST Station ID: [id number]
--- NOTE | 2022-10-27 14:19 | HISTORY & PHYSICAL EXAMINATION ---
HPI - History Obtained From History obtained from: Patient, Other Exam limitations: Clinical condition - History of Present Illness HPI Comment/Other: This is a 87-year-old woman, prison resident with a history of frequent falls, took a fall from standing height today at the prison landing on right side. She hit her head and hip, unable to bear weight on right leg because of pain about right hip and upper thigh. There is no documented history for loss of consciousness, chest pain, shortness of breath or syncope. She has had previous pubic rami fractures many years ago. She is a minimal ambulator, indoor, prison. She was brought to the emergency room for evaluation following fall. Although she has multiple medical problems, she has been relatively healthy. However, she does have a history of dementia, chronic pulmonary disease, hypothyroidism, aortic valve replacement, history of congestive heart failure, atrial fibrillation, history of GI bleeding associated with anticoagulation which has been stopped, and osteoporosis. She also has low body mass index. 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 : positive: None HEENT: positive: None Psych: positive: Depression, Eating disorder Musculoskeletal: positive: None Derm: positive: None - Past Surgical History Cardiovascular: positive: Valve replacement Social & Family Hx - Living Situation Living Arrangement: longterm - Social History Does the pt smoke?: No Smoking Status: Never smoker Does the pt drink ETOH?: No Does the pt have substance abuse?: No - POLST Patient has POLST: Yes Meds/Allgy - Home Medications Home Medications: Ambulatory Orders Medication Instructions Recorded Confirmed Acetaminophen [Acetaminophen Extra 500 mg PO BID 11/26/21 01/07/22 Strength] Acetaminophen [Acetaminophen Extra 500 mg PO Q8H PRN 11/26/21 01/07/22 Strength] Albuterol Sulfate [Proair 2 puffs INH Q6H PRN 11/26/21 01/07/22 Respiclick] Budesonide/Formoterol Fumarate 2 puffs INH BID 11/26/21 01/07/22 [Symbicort 160-4.5 Mcg Inhaler] Ferrous Sulfate 325 mg PO BIDWM 11/26/21 01/07/22 Gabapentin [Neurontin] 100 mg PO BID 11/26/21 01/07/22 Gabapentin [Neurontin] 100 mg PO DAILY PRN 11/26/21 01/07/22 Levothyroxine Sodium [Synthroid] 88 mcg PO QDAC 11/26/21 01/07/22 Loperamide [Imodium] 2 mg PO QID PRN 11/26/21 01/07/22 Memantine [Namenda] 5 mg PO DAILY 11/26/21 01/07/22 Sertraline [Zoloft] 50 mg PO DAILY 11/26/21 01/07/22 Pantoprazole [Protonix] 40 mg PO DAILY #30 tablet 11/27/21 01/07/22 polyethylene glycoL 3350 [Miralax] 17 gm PO DAILY PRN #1 bottle 05/24/22 - Allergies Allergies/Adverse Reactions: Allergies Allergy/AdvReac Type Severity Reaction Status Date / Time latex AdvReac Mild Unknown Verified 10/27/22 11:17 aspirin AdvReac Unknown Verified 10/27/22 11:17 escitalopram [From Lexapro] AdvReac Unknown Verified 10/27/22 11:17 Exam - Vital Signs Vital Signs: Vital Signs x48h Temp Pulse Resp BP Pulse Ox 10/27/22 11:17 36.6 C 74 18 123/57 L 93 - Physical Exam General Appearance: positive: Mild distress Eyes Bilateral: negative: Other (Bruising right periorbital area) Neck: positive: Nml inspection Respiratory: positive: Chest non-tender, No respiratory distress, Breath sounds nml Cardiovascular: negative: Other (Irregular heart rate) Peripheral Pulses: positive: 1+ Abdomen: positive: Non-tender, No distention Skin: positive: Color nml, No rash, Dry Neurologic/Psychiatric: positive: Motor nml, Sensation nml, Disoriented to place, Disoriented to time Comments/Other: The right leg is shortened. She points to pain about her right hip. She has considerable pain with any attempted passive movement of right hip, limited motion right hip. Right knee shows no swelling or tenderness. Right ankle nontender, pain-free motion. She has absent hair distribution to feet, reduced pedal pulses to both feet, no acute vascular compromise to feet or lower extremity. Skin intact, no hematoma about right hip. Sciatic and femoral nerve functions intact right leg. Upper extremities and left lower extremity does not show any signs of injury. Results - Lab Results Fish Bones: 10/27/22 11:48 10/27/22 11:48 Other Lab Results: Lab Results x24hrs 10/27/22 10/27/22 10/27/22 Range/Units 11:48 11:48 11:48 WBC 9.1 (4.8-10.8) x10^3/uL RBC 4.51 (4.20-5.40) 10^6/uL Hgb 14.1 (12.0-16.0) g/dL Hct 45.2 (37.0-47.0) % MCV 100.2 H (81.0-99.0) fL MCH 31.3 H (27.0-31.0) pg MCHC 31.2 L (32.0-36.0) g/dL RDW 13.6 (12.0-15.0) % Plt Count 222 (130-450) 10^3/uL MPV 9.7 (7.9-10.8) fL Neut # (Auto) 7.2 H (1.5-6.6) 10^3/uL Lymph # (Auto) 1.3 L (1.5-3.5) 10^3/uL Will # (Auto) 0.4 (0.0-1.0) 10^3/uL Eos # (Auto) 0.1 (0.0-0.7) 10^3/uL Baso # (Auto) 0.1 (0.0-0.1) 10^3/uL Absolute Nucleated RBC 0.00 x10^3/uL Nucleated RBC % 0.0 /100WBC PT 10.8 (9.9-12.6) secs INR 1.0 (0.8-1.2) Sodium 138 (135-145) mmol/L Potassium 3.8 (3.5-5.0) mmol/L Chloride 99 L (101-111) mmol/L Carbon Dioxide 29 (21-32) mmol/L Anion Gap 10.0 (6-13) BUN 16 (6-20) mg/dL Creatinine 0.5 (0.4-1.0) mg/dL Estimated GFR (MDRD) 117 (>89) Glucose 118 H (70-100) mg/dL Calcium 9.4 (8.5-10.3) mg/dL - Diagnostic Imaging Results Diagnostic Imaging Results: positive: Read independently. negative: See rad report (Displaced intertrochanteric fracture right hip, osteoporosis, old healed pubic rami fractures on right side) Impression/Plan - Problem List Problem List: 1. Displaced intertrochanteric fracture right hip associated with osteoporosis 2. Medical comorbidities include: Chronic pulmonary disease, aortic valve replacement, atrial fibrillation, dementia, history of congestive heart failure, history of gastrointestinal bleeding requiring blood transfusion, history of falls, prison resident The plan is for medical evaluation by our hospitalist, Dr. Sandrine Webber. The orthopedist will manage the hip fracture stabilization which will require surgical treatment, intramedullary hip screw, most likely tomorrow pending medical evaluation and consent. The hospitalist will manage all of her medical problems including discharge. All medication orders will be done by the hospitalist. The patient will be placed on sequential compression devices for deep venous thrombosis prophylaxis. Postoperatively, anticoagulation will be done by the hospitalist in conjunction with the orthopedist; patient has a h istory of gastrointestinal bleeding that may have been associated with use of Xarelto. She is allergic to aspirin, therefore, there are risk associated with anticoagulation that are greater than usual.I spoke with Anya Mack, power of beef pusher for this patient who lives just outside of [facility]. The risk, goals and likelihood of achieving goals, alternatives to surgery and their consequences, disability and occasionally were discussed with her. She has given verbal phone consent for the surgery consisting of open reduction internal fixation of the right hip. The surgery most likely will occur tomorrow at around 1300. The consent has been witnessed by our nurse here in the office, Paulina Rowe.
[2022-10-27] MEDS ORDERED: SODIUM CHLORIDE FLUSH 0.9% 10 ML SYRINGE IVP PRN (14:20)
[2022-10-27] MEDS ORDERED: MORPHINE 2 MG/ML CARPUJECT IVP PRN (14:20)
[2022-10-27] MEDS ORDERED: ONDANSETRON 4 MG/2 ML VIAL IVP PRN (14:20)
--- NOTE | 2022-10-27 14:21 | CT Report ---
PROCEDURE: PELVIS WO INDICATIONS: Right hip Fx TECHNIQUE: Noncontrast 3 mm axial sections acquired through the bony pelvis, with coronal and sagittal reformatt ing. For radiation dose reduction, the following was used: automated exposure control, adjustment of mA and/or kV according to patient size. COMPARISON: Plain films of the pelvis and right hip from today. FINDINGS: Image quality: Excellent. Bones: There is a comminuted mildly displaced fracture of the base of the right femoral neck and tro chanteric region of the right femur. No dislocation. There is deformity of the right pubic ramus from remote fracture. No other fractures or dislocations are identified. Soft tissues: Uterus is surgically absent. No significant hematoma associated with a hip fracture. IMPRESSION: Comminuted, mildly displaced fracture of the base of the right femoral neck and trochanteric region o f the right femur. Reviewed by: Landon Cintron MD on 10/27/2022 2:20 PM PST Approved by: Landon Cintron MD on 10/27/2022 2:20 PM PST Station ID: [id number]
[2022-10-27 16:34] LABS: B. PARAPERTUSSIS- RESP PCR PAN NOT DETECTED; B. PERTUSSIS- RESP PCR PANEL NOT DETECTED; C. PNEUMONIAE- RESP PCR PANEL NOT DETECTED; CORONAVIRUS 229E-RESP PCR NOT DETECTED; CORONAVIRUS HKU1-RESP PCR NOT DETECTED; CORONAVIRUS NL63-RESP PCR NOT DETECTED; CORONAVIRUS OC43-RESP PCR NOT DETECTED; HUMAN METAPNEUMOVIRUS NOT DETECTED; INFLUENZA A- RESP PCR PANEL NOT DETECTED; INFLUENZA B - RESP PCR PANEL NOT DETECTED; M. PNEUMONIAE- RESP PCR PANEL NOT DETECTED; PARAINFLUENZA VIRUS 1 NOT DETECTED; PARAINFLUENZA VIRUS 2 NOT DETECTED; PARAINFLUENZA VIRUS 3 NOT DETECTED; PARAINFLUENZA VIRUS 4 NOT DETECTED; RHINOVIRUS/ENTEROVIRUS NOT DETECTED; RSV- RESP PCR PANEL NOT DETECTED; SARS-CoV-2 -RESP PCR PANEL NOT DETECTED
[2022-10-27] MEDS: ACETAMINOPHEN 325 MG TABLET PO PRN (18:00)
[2022-10-27] MEDS: SODIUM CHLORIDE FLUSH 0.9% 10 ML SYRINGE IVP SCH (18:08)
[2022-10-27] MEDS ORDERED: OLANZapine ODT 5 MG TABLET TL ONE (22:02)
[2022-10-27] MEDS: oxyCODONE 5 MG TABLET PO PRN (22:15)
[2022-10-27] MEDS: NS W/20 MEQ KCL 1,000 ML IV SCH (22:50)
--- NOTE | 2022-10-27 23:10 | CONSULTATION NOTE ---
Referring Provider Name of Referring Provider:: Rainer Dent Consult Date: 10/27/22 Chief Complaint - Chief Complaint Chief Complaint: Fall onto her right side with hip fracture and needs preop eval History of Present Illness - Admitted From Admitted From:: [facility] - History Obtained From Records Reviewed: [facility] History obtained from: Dr. Swain Exam Limitations: She is a vandana but demented lady - History of Present Illness HPI Comment/Other: The only records I have on this woman that give me any insight into her history is the documentation in the ER. [facility] lives at a [facility]. The [facility] documents dementia with behavioral disorder. She has a history of an aortic valve replacement. She has chronic atrial fibrillation and congestive heart failure. She had a recent GI bleed and anticoagulation had to be stopped. She has depression, and eating disorder with recent weight loss. She is also hypothyroid. When I go see the patient, she is alert, cooperative. Delightful person. Nursing warns me that she is not always so delightful and can get quite disgruntled. But at this moment of time she tells me that we are making too much of everything. She does hurt in her leg but "not too badly". I asked her about chest pain, palpitations, shortness of breath. She shrugs and says that she has had all those things in the past but they are not particularly bothersome right now. She tells me that she is from [place]. Her family is up there right now. Cannot quite tell me how she ended up on [facility] at a memory care unit. She really minimizes any complaints. History - Past Medical History Cardiovascular: reports: Congestive heart failure, Arrhythmia, Valve disorder Respiratory: reports: Asthma Neuro: reports: Dementia Endocrine/Autoimmune: reports: HyPOthyroidism GI: reports: Other (GI bleed November 2021 with a hemoglobin of less than 5. 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 : reports: None HEENT: reports: None Psych: reports: Depression, Eating disorder Musculoskeletal: reports: Osteoarthritis, Rheumatoid arthritis Derm: reports: None - Past Surgical History General: reports: EGD Cardiovascular: reports: Valve replacement - Family & Social History Family History Comment/Other: Patient could not answer her family medical history due to her history of dementia Living arrangement: longterm Living Situation: With caregiver(s) Social History Notes: Patient could not answer her social history dueTo her history of dementia - Substance History Use: Uses substance without health or social issues: NONE - POLST Patient has POLST: Yes Meds/Allgy - Home Medications Home Medications: Ambulatory Orders Medication Instructions Recorded Confirmed Acetaminophen [Acetaminophen Extra 500 mg PO BID 11/26/21 01/07/22 Strength] Acetaminophen [Acetaminophen Extra 500 mg PO Q8H PRN 11/26/21 01/07/22 Strength] Albuterol Sulfate [Proair 2 puffs INH Q6H PRN 11/26/21 01/07/22 Respiclick] Budesonide/Formoterol Fumarate 2 puffs INH BID 11/26/21 01/07/22 [Symbicort 160-4.5 Mcg Inhaler] Ferrous Sulfate 325 mg PO BIDWM 11/26/21 01/07/22 Gabapentin [Neurontin] 100 mg PO BID 11/26/21 01/07/22 Gabapentin [Neurontin] 100 mg PO DAILY PRN 11/26/21 01/07/22 Levothyroxine Sodium [Synthroid] 88 mcg PO QDAC 11/26/21 01/07/22 Loperamide [Imodium] 2 mg PO QID PRN 11/26/21 01/07/22 Memantine [Namenda] 5 mg PO DAILY 11/26/21 01/07/22 Sertraline [Zoloft] 50 mg PO DAILY 11/26/21 01/07/22 Pantoprazole [Protonix] 40 mg PO DAILY #30 tablet 11/27/21 01/07/22 polyethylene glycoL 3350 [Miralax] 17 gm PO DAILY PRN #1 bottle 05/24/22 - Allergies Allergies/Adverse Reactions: Allergies Allergy/AdvReac Type Severity Reaction Status Date / Time latex AdvReac Mild Unknown Verified 10/27/22 11:17 aspirin AdvReac Unknown Verified 10/27/22 11:17 escitalopram [From Lexapro] AdvReac Unknown Verified 10/27/22 11:17 Review of Systems - Constitutional Constitutional: denies: Fatigue, Fever, Chills, Malaise - Eyes Eyes: reports: Other (She tells me nothing is bothering her face and had but she has clotted blood in her hair in the right temporal side, a lack that has been closed. She has a black eye.). denies: Pain - Ears, Nose & Throat Ears, Nose & Throat: reports: Hearing loss, Hearing aids. denies: Sore throat, Hoarseness - Cardiovascular Cariovascular: denies: Palpitations, Chest pain, Edema, Exertional dyspnea, Decr. exercise tolerance - Respiratory Respiratory: denies: Cough, Sputum production, Wheezing - Gastrointestinal Gastrointestinal: denies: Abdominal pain, Abdominal distention, Constipation, Diarrhea - Genitourinary Genitourinary: denies: Dysuria, Frequency, Urgency - Musculoskeletal Musculoskeletal: reports: Back pain, Muscle aches, Joint pain - Integumentary Integumentary: denies: Rash - Neurological Neurological: reports: Headache. denies: General weakness, Focal weakness - Psychiatric Psychiatric: denies: Depression, Anxiety, Suicidal - Other Findings Other Findings: Although I have obtained this review of systems, because of her dementia, I do not know how much I trust her feedback Exam - Vital Signs Reviewed Vital Signs: Yes Vital Signs: Vital Signs x48h Temp Pulse Resp BP Pulse Ox 10/27/22 22:47 36.9 C 88 16 108/86 H 96 10/27/22 16:25 92 17 131/78 H 97 - Physical Exam General Appearance: positive: No acute distress, Alert, Other (Remarkably cheerful at this late hour of the day and cooperative. She appears gaunt, quite thin.) Eyes Bilateral: positive: PERRL, EOMI ENT: positive: No signs of dehydration, Other (Righteye with periorbital ecchymosis, the hairline of the right judaism has dried blood with a laceration. Blood has gone into her hair and is given her a purple streak look.) Neck: positive: No JVD. negative: Stiff neck Respiratory: positive: No respiratory distress. negative: Wheezes, Rales, Rhonchi Cardiovascular: positive: Regular rate & rhythm, Systolic murmur (That radiates up into her carotids. Soft click at S2) Abdomen: positive: Non-tender, No organomegaly, Nml bowel sounds, No distention Skin: positive: Warm, Dry Extremities: positive: No pedal edema Neurologic/Psychiatric: positive: CN's nml (2-12), Motor nml, Disoriented to person, Disoriented to place (She thinks he is in her bed at her [facility] and that were getting ready to tuck her in), Disoriented to time Conclusion/Plan - Problem List (1) Displaced fracture of right femoral neck Conclusion/Plan: This is from a mechanical fall. No syncope. Most likely this lady has osteoporosis. Orthopedic surgery is admitting the patient. I am consulting. I will continue to follow daily. I will start calcium and vitamin D after surgery. (2) Preop cardiovascular exam Conclusion/Plan: From the minimal objective data that I have obtained, this patient appears to be stable. She is not in acute congestive heart failure but she does have a history of atrial fibrillation but is not in RVR; she is not having an KS by subjective complaints.Unfortunate she has dementia, osteoporosis. I would anticipate higher than normal risk with regards to cardiovascular events as well as decompensation of her dementia. This would then in turn lead to less response with physical therapy. She would be at high risk for readmit, Plan: Check an EKG Check a troponin See if I can get any old records for an echocardiogram. We only have EKGs and telemetry strips. At this point in the day, PCP office not open. The name I am seeing is a group called [facility] primary care, and they care for adults and senior citizens in adult family homes and assisted living facilities. (3) Contraindication to deep vein thrombosis (DVT) prophylaxis Conclusion/Plan: This vandana lady is supposed to be on anticoagulation for history of atrial fibrillation. But that had to be stopped in November 2021 when she presented with a severe anemia in the face of a Izaguirre's esophagus. In looking at her med list, there are no nonsteroidals either. Plan: Lovenox would be my most logical choice since it is short acting, and can be stopped. I will start that after surgery. The only other choice could possibly be Plavix is a platelet inhibitor that would not have direct GI effect but with still increased rate of bleeding if her Izaguirre's esophagus is still off of it. Her home med list does have her on Protonix. I will resume that. (4) Barretts esophagus Conclusion/Plan: Proton pump inhibitor to be resumed. 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 Again, this lady is followed by primary care group in [place]. They may have decided not to do any further follow-up because of her age, frailty, and probable in practicality of treating a pulmonary nodule even if it is cancer. But I will call and verify when the office opens tomorrow. (6) Dementia Conclusion/Plan: She has had behavioral disturbance problems in the past. But they have been easily nipped in the bud. She is on Zoloft. That will be resumed. She is also on Namenda, gabapentin.. Qualifiers: Dementia type: Alzheimer's Dementia severity: severe Dementia behavioral or psychological symptom: without behavioral, psychotic, or mood disturbance or anxiety Qualified Code(s): F03.C0 - Unspecified dementia, severe, without behavioral disturbance, psychotic disturbance, mood disturbance, and anxiety - Lab Results Lab results reviewed: Yes Fish Bones: 10/27/22 11:48 10/27/22 11:48 - Diagnostic Imaging Results Diagnostic Imaging Results: positive: Final report reviewed
[2022-10-28] MEDS: SODIUM CHLORIDE FLUSH 0.9% 10 ML SYRINGE IVP SCH ×2 (01:05→16:17)
[2022-10-28] MEDS: ACETAMINOPHEN 325 MG TABLET PO PRN ×2 (02:34→21:45)
[2022-10-28] MEDS: NS W/20 MEQ KCL 1,000 ML IV SCH ×2 (04:11→16:16)
[2022-10-28 05:27] LABS: BASOPHILS % (AUTO) 0.5 %; EOSINOPHILS % (AUTO) 0.4 %; HCT - HEMATOCRIT 37.5 % (37.0-47.0); HGB - HEMOGLOBIN 11.5 g/dL (12.0-16.0); LYMPHOCYTES # (AUTO) 1.6 10^3/uL (1.5-3.5); LYMPHOCYTES % (AUTO) 21.1 %; MEAN CORPUSCULAR HEMOGLOBIN 31.5 pg (27.0-31.0); MEAN CORPUSCULAR HGB CONC 30.7 g/dL (32.0-36.0); MEAN CORPUSCULAR VOLUME 102.7 fL (81.0-99.0); MEAN PLATELET VOLUME 9.8 fL (7.9-10.8); MONOCYTES # (AUTO) 0.9 10^3/uL (0.0-1.0); MONOCYTES % (AUTO) 11.7 %; NEUTROPHILS # (AUTO) 5.1 10^3/uL (1.5-6.6); NEUTROPHILS % (AUTO) 66.2 %; PLT - PLATELET COUNT 155 10^3/uL (130-450); RED BLOOD COUNT 3.65 10^6/uL (4.20-5.40); RED CELL DISTRIBUTION WIDTH 13.7 % (12.0-15.0); WHITE BLOOD COUNT 7.7 x10^3/uL (4.8-10.8)
[2022-10-28 05:35] LABS: CALCIUM 8.7 mg/dL (8.5-10.3); CREATININE 0.6 mg/dL (0.4-1.0)
[2022-10-28] MEDS: LEVOTHYROXINE 88 MCG TABLET PO SCH (06:59)
--- NOTE | 2022-10-28 08:54 | ANESTHESIA ---
Pre-Anesthesia VS, & Labs - Diagnosis right hip fracture - Procedure hip nailing Vital Signs: Temp Pulse Resp BP Pulse Ox O2 Flow Rate 36.2 C L 86 18 126/68 95 2 10/28/22 07:00 10/28/22 07:00 10/28/22 07:00 10/28/22 07:00 10/28/22 07:00 10/28/22 05:05 Height: 5 ft 7 in Weight (kg): 54 kg Body Mass Index: 18.6 BMI Classification: Normal - NPO >8 hours - Is Patient ?: No - Lab Results Current Lab Results: Laboratory Tests 10/28/22 05:18: Sodium 138, Potassium 4.0, Chloride 99 L, Carbon Dioxide 33 H, Anion Gap 6.0, BUN 17, Creatinine 0.6, Estimated GFR (MDRD) 95, Glucose 94, Calcium 8.7 10/28/22 05:18: WBC 7.7, RBC 3.65 L, Hgb 11.5 L, Hct 37.5, MCV 102.7 H, MCH 31.5 H, MCHC 30.7 L, RDW 13.7, Plt Count 155, MPV 9.8, Neut # (Auto) 5.1, Lymph # (Auto) 1.6, [place]dwell # (Auto) 0.9, Eos # (Auto) 0.0, Baso # (Auto) 0.0, Absolute Nucleated RBC 0.00, Nucleated RBC % 0.0 10/27/22 23:47: Troponin I High Sens 10.4 10/27/22 11:48: Sodium 138, Potassium 3.8, Chloride 99 L, Carbon Dioxide 29, Anion Gap 10.0, BUN 16, Creatinine 0.5, Estimated GFR (MDRD) 117, Glucose 118 H, Calcium 9.4 10/27/22 11:48: PT 10.8, INR 1.0 10/27/22 11:48: WBC 9.1, RBC 4.51, Hgb 14.1, Hct 45.2, MCV 100.2 H, MCH 31.3 H, MCHC 31.2 L, RDW 13.6, Plt Count 222, MPV 9.7, Neut # (Auto) 7.2 H, Lymph # (Auto) 1.3 L, Caldwell # (Auto) 0.4, Eos # (Auto) 0.1, Baso # (Auto) 0.1, Absolute Nucleated RBC 0.00, Nucleated RBC % 0.0 Fish Bones: 10/28/22 05:18 10/28/22 05:18 Home Medications and Allergies Active Medications Acetaminophen (Acetaminophen 325 Mg Tablet) 650 mg PO Q4HR PRN PRN Reason: Pain 1 to 4, or Fever Last Admin: 10/28/22 02:34 Dose: 650 mg Gabapentin (Gabapentin 100 Mg Capsule) 100 mg PO BID [facility] Potassium Chloride/Sodium Chloride (Normal Saline 0.9% W/20 Meq Kcl) 1,000 mls @ 75 mls/hr IV .[id number] [facility] Last Admin: 10/28/22 04:11 Dose: 75 mls/hr Levothyroxine Sodium (Levothyroxine 88 Mcg Tablet) 88 mcg PO QDAC [facility] Last Admin: 10/28/22 06:59 Dose: 88 mcg Morphine Sulfate (Morphine 2 Mg/Ml Carpuject) 2 mg IVP Q2HR PRN PRN Reason: Pain 8 to 10 Last Admin: 10/27/22 17:55 Dose: 2 mg Ondansetron HCl (Ondansetron 4 Mg/2 Ml Vial) 4 mg IVP Q6HR PRN PRN Reason: Nausea / Vomiting Oxycodone HCl (Oxycodone 5 Mg Tablet) 5 mg PO Q4HR PRN PRN Reason: Pain 5 to 7 Last Admin: 10/27/22 22:15 Dose: 5 mg Sertraline HCl (Sertraline 50 Mg Tablet) 50 mg PO DAILY [facility] Sodium Chloride (Sodium Chloride Flush 0.9% 10 Ml Syringe) 10 ml IVP PRN PRN PRN Reason: NEEDED PER PROVIDER ORDERS Sodium Chloride (Sodium Chloride Flush 0.9% 10 Ml Syringe) 10 ml IVP 0100,0900,1700 [facility] Last Admin: 10/28/22 01:05 Dose: Not Given Acetaminophen [Acetaminophen Extra Strength] 500 mg PO BID 11/26/21 Acetaminophen [Acetaminophen Extra Strength] 500 mg PO Q8H PRN 11/26/21 Albuterol Sulfate [Proair Respiclick] 2 puffs INH Q6H PRN 11/26/21 Budesonide/Formoterol Fumarate [Symbicort 160-4.5 Mcg Inhaler] 2 puffs INH BID 11/26/21 Ferrous Sulfate 325 mg PO BIDWM 11/26/21 Gabapentin [Neurontin] 100 mg PO BID 11/26/21 Gabapentin [Neurontin] 100 mg PO DAILY PRN 11/26/21 Levothyroxine Sodium [Synthroid] 88 mcg PO QDAC 11/26/21 Loperamide [Imodium] 2 mg PO QID PRN 11/26/21 Memantine [Namenda] 5 mg PO DAILY 11/26/21 Sertraline [Zoloft] 50 mg PO DAILY 11/26/21 Allergies/Adverse Reactions: Allergies Allergy/AdvReac Type Severity Reaction Status Date / Time latex AdvReac Mild Unknown Verified 10/27/22 11:17 aspirin AdvReac Unknown Verified 10/27/22 11:17 escitalopram [From Lexapro] AdvReac Unknown Verified 10/27/22 11:17 Anes History & Medical History - Anesthetic History Anesthesia Complications: reports: No previous complications - Medical History Cardiovascular: reports: Congestive heart failure, Arrhythmia, Valve disorder Pulmonary: reports: Asthma Gastrointestinal: reports: Other Urinary: reports: None Neuro: reports: Dementia Musculoskeletal: reports: Osteoarthritis, Rheumatoid arthritis Endocrine/Autoimmune: reports: HyPOthyroidism Skin: reports: None Smoking Status: Never smoker - Surgical History General: reports: EGD Cardiothoracic: reports: Valve replacement Exam General: Alert, Cooperative Dental: WNL, Dentures full Upper Mouth Opening: Greater than 4 Fingerbreadths Neck Mobility: Normal Mallampati classification: II Respiratory: Lungs clear Cardiovascular: Regular rate, Normal S1, Normal S2 Plan Anesthesia Type: Spinal, Fascia Iliaca Block Consent for Procedure(s) Verified and Reviewed: Yes Code Status: Attempt Resuscitation ASA classification: 3-Severe systemic disease Is this case an emergency?: No
[2022-10-28] MEDS ORDERED: ePHEDrine 50 MG/ML VIAL IVP PRN (10:06)
[2022-10-28] MEDS ORDERED: ATROPINE ABBOJECT 1 MG/10 ML SYRINGE IVP PRN (10:06)
[2022-10-28] MEDS ORDERED: ONDANSETRON 4 MG/2 ML VIAL IVP PRN (10:06)
[2022-10-28] MEDS ORDERED: NALOXONE 0.4 MG/ML VIAL IVP PRN (10:06)
[2022-10-28] MEDS ORDERED: HYDROmorphone 0.5 MG/0.5 ML SYRINGE IVP PRN (10:06)
[2022-10-28] MEDS ORDERED: MORPHINE 2 MG/ML CARPUJECT IVP PRN (10:06)
[2022-10-28] MEDS ORDERED: fentaNYL 100 MCG/2 ML VIAL IVP PRN (10:06)
[2022-10-28] MEDS ORDERED: METOCLOPRAMIDE 10 MG/2 ML VIAL IVP PRN (10:06)
[2022-10-28] MEDS ORDERED: CEFAZOLIN 2G/50ML 0.9% NS 2 GM/50 ML BAG IV ONE (10:06)
[2022-10-28] MEDS ORDERED: LACTATED RINGERS 1,000 ML IV ONE ×2 (10:09→15:08)
[2022-10-28] MEDS ORDERED: KETAMINE 500 MG/10 ML VIAL ONE (10:14)
[2022-10-28] MEDS ORDERED: PROPOFOL 500 MG/50 ML 500 MG/50 ML VIAL ONE (10:14)
[2022-10-28] MEDS ORDERED: PHENYLEPHRINE 10 MG/ML VIAL ONE (10:28)
[2022-10-28] MEDS ORDERED: TRANEXAMIC ACID 1,000 MG/10 ML VIAL ONE (10:30)
[2022-10-28] MEDS ORDERED: LACTATED RINGERS 1,000 ML IV SCH (11:00)
[2022-10-28] MEDS ORDERED: BUPIVACAINE 0.25% PF 10 ML VIAL ONE (11:36)
[2022-10-28] MEDS ORDERED: ceFAZolin 1 GM VIAL ONE (11:36)
[2022-10-28] MEDS ORDERED: VANCOMYCIN 1 GM VIAL ONE (11:58)
--- NOTE | 2022-10-28 12:09 | PHARMACY PROGRESS NOTE ---
- Best Possible Medication History Admit Date and Time: 10/28/22 0910 Processed by: Pharmacy Medication History completed: Yes Secondary Source(s): Facility MAR as ONLY source As the person ultimately responsible for medication therapy, providers are able to order a medication from an existing home medication list in [facility] via the "Reconcile Routine" prior to Confirmation of that medication by account support associate. Such practice is discouraged except when the physician, in their clinical judgment, deems that a medical need exists for a medication without regard to previous use.
[2022-10-28] MEDS ORDERED: BUPIVACAINE 0.25% PF 30 ML VIAL SUBQ ONE ×2 (13:01)
[2022-10-28] MEDS ORDERED: DEXAMETHASONE 4 MG/ML VIAL ONE (13:39)
[2022-10-28] MEDS ORDERED: ONDANSETRON 4 MG/2 ML VIAL ONE (13:39)
[2022-10-28] MEDS ORDERED: BUPIVACAINE 0.5% PF 10 ML VIAL ONE (13:40)
[2022-10-28] MEDS ORDERED: SUGAMMADEX 200 MG/2 ML VIAL IVP ONE (14:22)
--- NOTE | 2022-10-28 14:37 | OPERATIVE REPORT ---
Operative Report - General Admit Date: 10/28/22 Procedure Date: 10/28/22 Planned Procedure: Open reduction internal fixation intertrochanteric fracture right hip Pre-Op Diagnosis: Displaced, comminuted intertrochanteric fracture right hip Procedure Performed: Open reduction internal fixation intertrochanteric fracture right hip with intramedullary locked integrated hip screw; [employer], 10 mm dolores, 85 mm lag screw, 80 mm compression screw, 32.5 mm dynamic lock distal screw Post Op Diagnosis: Same as preoperative diagnosis - Procedure Note Primary Surgeon: Rainer Dent MD Secondary Surgeon: Aaliyah Koch PAC Anesthesia Provider: Shakila Zaragoza CRNA Anesthesia Technique: General ET tube Estimated Blood Loss (mL): 50 Indications: This is a indoor ambulator, 87-year-old woman, long term resident, who took a fall yesterday landing on right side and sustained a right hip fracture. She does have multiple medical problems including dementia but stable comorbidities. She had seen her hospitalist preoperatively. She had painful and limited movement of her right hip, skin intact, neurovascular intact. Her x-ray showed a comminuted displaced intertrochanteric fracture right hip, osteoarthritis of both hips but not severe, old healed pubic rami fracture on right side and osteopenia. Her power of employee benefits attorney is her niece who lives in [place] just outside of [place]. An informed consent was obtained to do today's surgery. No matter how this fracture is treated, there is significant morbidity and mortality. Findings: Displaced, comminuted intertrochanteric fracture. The greater trochanter was partially comminuted. The lesser trochanter was split and attached to the proximal head and neck fragment. The lesser trochanter had a gap between the shaft and the fracture. The fracture was shortened and in some valgus. Complications: None - Other Other Information/Narrative: After satisfactory general anesthesia was achieved, the patient was transferred to the [place] fracture table in the supine position. Boot traction was applied to the right foot and well-leg weeks to the nonoperative left leg. Traction was applied to the right leg through the boot with the patella facing superiorly and the hip in a neutral position with regard to abduction and adduction and hip flexion/extension. The C-arm was used to assess the reduction and showed reasonable alignment on both AP and lateral views. The right hip was then prepped and draped in a sterile manner in the usual fashion using a vertical [place] transparent barrier. A 4 to 5 cm incision was made in line with the greater trochanter but proximal to the greater trochanter. The subcutaneous tissue and fascia were split. A starting bone all was used to engage the trochanteric fossa at its most lateral edge. The starting awl was impacted to lesser trochanter and a guidepin was then inserted. The position of the guidepin was confirmed on both AP and lateral views. Reaming was then carried out with the starting reamer. The 10 mm diameter dolores and guide was then utilized to insert the dolores through the trochanteric area and pushed distally using C-arm image intensifier and biplanar mode. The leg screw guidepin was inserted through a separate incision more distal. This was inserted in the proximate midline in both AP and lateral C arm images. The depth of the guidepin was 92 mm with a gap at the fracture site. The compression screw drills were then utilized both short and long. The antirotation bar was inserted. The lag screw reamer was then utilized and placed over the previously inserted pin to the appropriate depth. The 85 mm lag screw was inserted and the compression screw followed achieving nice compression of about 10 mm at the fracture site. The alignment of the fracture was very good on both AP and lateral views as well as the fixation. A third incision was made for the distal locking screw. Bicortical fixation was achieved with a 35 mm cortical screw inserted in dynamic mode. The wounds were irrigated. The subcutaneous tissue was closed with 2-0 Vicryl and the skin was closed with 3-0 Monocryl, Dermabond and dry sterile dressings. There is no deformity to the leg. The patient tolerated the procedure well. She did receive 2 g of Ancef prior to the incision and 1 gram tranexamic acid.A physician personal injury legal assistant was medically necessary to help with prepping and draping, positioning, protection of vital structures, assistance during the procedure including wound closure, dressing and/or splinting.
[2022-10-28] MEDS ORDERED: DOCUSATE SODIUM 100 MG CAPSULE PO PRN (14:46)
--- NOTE | 2022-10-28 16:05 | ANESTHESIA POST OP EVALUATION ---
Anesthesia Post Eval - Post Anesthesia Eval Vitals: Last Vital Signs Temp 37.4 C 10/28/22 15:40 Pulse 89 10/28/22 15:40 Resp 19 10/28/22 15:40 BP 131/64 H 10/28/22 15:40 Pulse Ox 92 10/28/22 15:40 O2 Flow Rate 2 10/28/22 05:05 CV Function Including HR & BP: Stable Pain Control: Satisfactory Nausea & Vomiting: Negative Mental Status: Baseline Respiratory Status: Airway Patent Hydration Status: Satisfactory Anesthesia Complications: None
[2022-10-28] MEDS: GABAPENTIN 100 MG CAPSULE PO SCH ×2 (16:17→21:45)
[2022-10-28] MEDS: SERTRALINE 50 MG TABLET PO SCH (16:17)
--- NOTE | 2022-10-28 17:19 | PROVIDER PROGRESS NOTE ---
Subjective - Prog Note Date Prog Note Date: 10/28/22 Prog Note Time: 17:17 - Subjective Subjective: She really has no insight. She has been cooperative. Not clearly understand that she is broken her hip and she has had surgery. She is done well with the surgery. No unexpected blood losses. No events in the OR. Orthopedics would like me to write for all of her medical orders. They will take care of her diet, pain and wound orders. Dr. Dent feels that she could go back to her intermediate on postop day 2. I have spoken to case management and discharge planning and they will contact her memory care unit today. Current Medications - Current Medications Current Medications: Active Medications Acetaminophen (Acetaminophen 325 Mg Tablet) 650 mg PO Q4HR PRN PRN Reason: Pain 1 to 4, or Fever Last Admin: 10/28/22 02:34 Dose: 650 mg Docusate Sodium (Docusate Sodium 100 Mg Capsule) 100 mg PO BID PRN PRN Reason: Constipation Gabapentin (Gabapentin 100 Mg Capsule) 100 mg PO BID [facility] Last Admin: 10/28/22 16:17 Dose: Not Given Potassium Chloride/Sodium Chloride (Normal Saline 0.9% W/20 Meq Kcl) 1,000 mls @ 75 mls/hr IV .[id number] [facility] Last Admin: 10/28/22 16:16 Dose: 75 mls/hr Cefazolin/Sodium Chloride (Ancef 2 Grams/50ml) 2 gm in 50 mls @ 100 mls/hr IV Q8HR [facility] Stop: 10/29/22 06:29 Levothyroxine Sodium (Levothyroxine 88 Mcg Tablet) 88 mcg PO QDAC [facility] Last Admin: 10/28/22 06:59 Dose: 88 mcg Morphine Sulfate (Morphine 2 Mg/Ml Carpuject) 2 mg IVP Q2HR PRN PRN Reason: Pain 8 to 10 Last Admin: 10/27/22 17:55 Dose: 2 mg Ondansetron HCl (Ondansetron 4 Mg/2 Ml Vial) 4 mg IVP Q6HR PRN PRN Reason: Nausea / Vomiting Oxycodone HCl (Oxycodone 5 Mg Tablet) 5 mg PO Q4HR PRN PRN Reason: Pain 5 to 7 Last Admin: 10/27/22 22:15 Dose: 5 mg Sertraline HCl (Sertraline 50 Mg Tablet) 50 mg PO DAILY [facility] Last Admin: 10/28/22 16:17 Dose: Not Given Sodium Chloride (Sodium Chloride Flush 0.9% 10 Ml Syringe) 10 ml IVP PRN PRN PRN Reason: NEEDED PER PROVIDER ORDERS Sodium Chloride (Sodium Chloride Flush 0.9% 10 Ml Syringe) 10 ml IVP 0100,0900,1700 [facility] Last Admin: 10/28/22 16:17 Dose: Not Given Acetaminophen [Acetaminophen Extra Strength] 1,000 mg PO TID 11/26/21 Albuterol Sulfate [Proair Respiclick] 2 puffs INH Q6H PRN 11/26/21 Budesonide/Formoterol Fumarate [Symbicort 160-4.5 Mcg Inhaler] 2 puffs INH BID 11/26/21 Gabapentin [Neurontin] 200 mg PO BID 11/26/21 Levothyroxine Sodium [Synthroid] 88 mcg PO QDAC 11/26/21 Loperamide [Imodium] 2 mg PO QID PRN 11/26/21 Memantine [Namenda] 10 mg PO BID 11/26/21 Sertraline [Zoloft] 50 mg PO DAILY 11/26/21 Bisacodyl Supp [Dulcolax Supp] 10 mg [place] DAILY PRN 10/28/22 Mag Hydrox/Al Hydrox/Simeth [Antacid Suspension] 30 ml PO Q4H PRN 10/28/22 Magnesium Hydroxide [Milk of Magnesia] 30 ml PO DAILY PRN 10/28/22 Objective - Vital Signs/Intake & Output Reviewed Vital Signs: Yes Vital Signs: Vital Signs x48h Temp Pulse Pulse Resp BP BP Pulse Ox 10/28/22 17:00 36.8 C 101 H 20 114/54 L 91 L 10/28/22 16:30 37.5 C 91 16 125/59 L 92 10/28/22 16:00 37.5 C 90 16 127/52 L 88 L 10/28/22 15:40 37.4 C 89 19 131/64 H 92 10/28/22 15:25 36.8 C 100 20 146/65 H 93 10/28/22 15:15 37.0 C 87 19 156/70 H 100 10/28/22 15:10 37.0 C 91 15 143/80 H 95 10/28/22 15:05 37.0 C 92 18 112/85 H 96 10/28/22 15:00 37.0 C 92 19 149/91 H 99 10/28/22 10:08 37.0 C 89 14 111/76 91 L O2 Flow Rate 10/28/22 17:00 2 10/28/22 16:30 2 10/28/22 16:00 2 10/28/22 15:40 10/28/22 15:25 10/28/22 15:15 10/28/22 15:10 10/28/22 15:05 10/28/22 15:00 10/28/22 10:08 Intake & Output: Intake & Output 10/25/22 10/26/22 10/27/22 10/28/22 23:59 23:59 23:59 23:59 Intake Total 150 Output Total 500 Balance -350 - Objective General Appearance: positive: Alert, Other (Still has that black eye on the right side with the dried blood in her hair. Over the right muslim. 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 Tells me "everything is just fine") Eyes Bilateral: positive: PERRL, EOMI ENT: positive: No signs of dehydration Neck: positive: No JVD. negative: Stiff neck Respiratory: positive: No respiratory distress. negative: Wheezes, Rales, Rhonchi Cardiovascular: positive: Regular rate & rhythm, Systolic murmur Abdomen: positive: Non-tender, No organomegaly, Nml bowel sounds, No distention Skin: positive: Warm, Dry Extremities: positive: No pedal edema Neurologic/Psychiatric: positive: CN's nml (2-12), Motor nml, Disoriented to person, Disoriented to place, Disoriented to time - Lab Results Fish Bones: 10/28/22 05:18 10/28/22 05:18 Other Labs: Lab Results x24hrs 10/28/22 10/28/22 10/27/22 Range/Units 05:18 05:18 23:47 WBC 7.7 (4.8-10.8) x10^3/uL RBC 3.65 L (4.20-5.40) 10^6/uL Hgb 11.5 L (12.0-16.0) g/dL Hct 37.5 (37.0-47.0) % MCV 102.7 H (81.0-99.0) fL MCH 31.5 H (27.0-31.0) pg MCHC 30.7 L (32.0-36.0) g/dL RDW 13.7 (12.0-15.0) % Plt Count 155 (130-450) 10^3/uL MPV 9.8 (7.9-10.8) fL Neut # (Auto) 5.1 (1.5-6.6) 10^3/uL Lymph # (Auto) 1.6 (1.5-3.5) 10^3/uL [place] # (Auto) 0.9 (0.0-1.0) 10^3/uL Eos # (Auto) 0.0 (0.0-0.7) 10^3/uL Baso # (Auto) 0.0 (0.0-0.1) 10^3/uL Absolute Nucleated RBC 0.00 x10^3/uL Nucleated RBC % 0.0 /100WBC Sodium 138 (135-145) mmol/L Potassium 4.0 (3.5-5.0) mmol/L Chloride 99 L (101-111) mmol/L Carbon Dioxide 33 H (21-32) mmol/L Anion Gap 6.0 (6-13) BUN 17 (6-20) mg/dL Creatinine 0.6 (0.4-1.0) mg/dL Estimated GFR (MDRD) 95 (>89) Glucose 94 (70-100) mg/dL Calcium 8.7 (8.5-10.3) mg/dL Troponin I High Sens 10.4 (2.3-14.8) ng/L Assessment/Plan - Problem List (1) Displaced fracture of right femoral neck Impression: Underwent an uneventful surgery today. She is postop day 0. Orthopedic surgery feels she can be discharged on postop day #2. Plan is for physical therapy to see her tomorrow and establish baseline. Due to presumptive diagnosis of osteoporosis, start calcium and vitamin D (2) Contraindication to deep vein thrombosis (DVT) prophylaxis Impression: She has a history of Izaguirre's esophagus, a previous GI bleed for which she was taken off anticoagulation. I am hesitant to give her an nonsteroidal for DVT prophylaxis. Plavix may be an agent that we could use for her for a few days. It will not affect her stomach, but it will increase her risk of bleeding. But I do not think it would increase it is much as the Lovenox would. (3) Barretts esophagus Impression: Continue proton pump inhibitor. Check CBC daily. 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 No follow-up as of yet. I do not know if we should follow-up at age 87 with her dementia (5) Dementia Impression: She is on her memory care medication. That includes Zoloft, Namenda. Qualifiers: Dementia type: Alzheimer's Dementia severity: severe Dementia behavioral or psychological symptom: without behavioral, psychotic, or mood disturbance or anxiety Qualified Code(s): F03.C0 - Unspecified dementia, severe, without behavioral disturbance, psychotic disturbance, mood disturbance, and anxiety
[2022-10-28] MEDS: MEMANTINE 5 MG TABLET PO SCH (21:45)
[2022-10-28] MEDS: CALCIUM CARBONATE CHEW 500 MG TABLET PO SCH (21:45)
[2022-10-28] MEDS: CEFAZOLIN 2G/50ML 0.9% NS 2 GM/50 ML BAG IV SCH (21:46)
[2022-10-29] MEDS: SODIUM CHLORIDE FLUSH 0.9% 10 ML SYRINGE IVP SCH ×3 (00:50→16:42)
[2022-10-29] MEDS: NS W/20 MEQ KCL 1,000 ML IV SCH ×2 (04:01→16:42)
[2022-10-29 05:31] LABS: BASOPHILS % (AUTO) 0.3 %; HCT - HEMATOCRIT 34.9 % (37.0-47.0); HGB - HEMOGLOBIN 10.3 g/dL (12.0-16.0); LYMPHOCYTES % (AUTO) 10.3 %; MEAN CORPUSCULAR HEMOGLOBIN 30.7 pg (27.0-31.0); MEAN CORPUSCULAR HGB CONC 29.5 g/dL (32.0-36.0); MEAN CORPUSCULAR VOLUME 104.2 fL (81.0-99.0); MONOCYTES # (AUTO) 1.1 10^3/uL (0.0-1.0); MONOCYTES % (AUTO) 11.2 %; NEUTROPHILS # (AUTO) 7.7 10^3/uL (1.5-6.6); NEUTROPHILS % (AUTO) 77.9 %; PLT - PLATELET COUNT 139 10^3/uL (130-450); RED BLOOD COUNT 3.35 10^6/uL (4.20-5.40); RED CELL DISTRIBUTION WIDTH 13.7 % (12.0-15.0); WHITE BLOOD COUNT 9.9 x10^3/uL (4.8-10.8)
[2022-10-29 05:41] LABS: CALCIUM 8.3 mg/dL (8.5-10.3); CREATININE 0.5 mg/dL (0.4-1.0); POTASSIUM 4.1 mmol/L (3.5-5.0)
[2022-10-29] MEDS: CEFAZOLIN 2G/50ML 0.9% NS 2 GM/50 ML BAG IV SCH (06:06)
[2022-10-29] MEDS: LEVOTHYROXINE 88 MCG TABLET PO SCH (06:14)
[2022-10-29] MEDS: ACETAMINOPHEN 325 MG TABLET PO PRN ×4 (06:26→21:12)
--- NOTE | 2022-10-29 07:20 | PROVIDER PROGRESS NOTE ---
Subjective - Prog Note Date Prog Note Date: 10/29/22 Prog Note Time: 07:19 - Subjective Subjective: no reports from overnight assessment. She thinks that she is in [place]. She thinks that she is in someone's house. She wants me to tell everyone that they are the best hosts. She says that they are just spoiling her rotten and taking such good care of her. I told her that I would make sure that I told all the hosts in the building. She denies any pain. She has no idea that she has had a hip fracture. She has no idea that she has had surgery. In fact she laughs at me and says that there is no way she had that because she feels "just fine" Current Medications - Current Medications Current Medications: Active Medications Acetaminophen (Acetaminophen 325 Mg Tablet) 650 mg PO Q4HR PRN PRN Reason: Pain 1 to 4, or Fever Last Admin: 10/29/22 06:26 Dose: 650 mg Calcium Carbonate/Glycine (Calcium Carbonate Chew 500 Mg Tablet) 500 mg PO 11 00,2100 [facility] Last Admin: 10/28/22 21:45 Dose: 500 mg Cholecalciferol (Cholecalciferol 400 Unit Tablet) 800 unit PO DAILY [facility] Docusate Sodium (Docusate Sodium 100 Mg Capsule) 100 mg PO BID PRN PRN Reason: Constipation Gabapentin (Gabapentin 100 Mg Capsule) 100 mg PO BID [facility] Last Admin: 10/28/22 21:45 Dose: 100 mg Potassium Chloride/Sodium Chloride (Normal Saline 0.9% W/20 Meq Kcl) 1,000 mls @ 75 mls/hr IV .[id number] [facility] Last Admin: 10/29/22 04:01 Dose: 75 mls/hr Levothyroxine Sodium (Levothyroxine 88 Mcg Tablet) 88 mcg PO QDAC [facility] Last Admin: 10/29/22 06:14 Dose: 88 mcg Memantine (Memantine 5 Mg Tablet) 10 mg PO BID [facility] Last Admin: 10/28/22 21:45 Dose: 10 mg Morphine Sulfate (Morphine 2 Mg/Ml Carpuject) 2 mg IVP Q2HR PRN PRN Reason: Pain 8 to 10 Last Admin: 10/27/22 17:55 Dose: 2 mg Ondansetron HCl (Ondansetron 4 Mg/2 Ml Vial) 4 mg IVP Q6HR PRN PRN Reason: Nausea / Vomiting Oxycodone HCl (Oxycodone 5 Mg Tablet) 5 mg PO Q4HR PRN PRN Reason: Pain 5 to 7 Last Admin: 10/27/22 22:15 Dose: 5 mg Sertraline HCl (Sertraline 50 Mg Tablet) 50 mg PO DAILY [facility] Last Admin: 10/28/22 16:17 Dose: Not Given Sodium Chloride (Sodium Chloride Flush 0.9% 10 Ml Syringe) 10 ml IVP PRN PRN PRN Reason: NEEDED PER PROVIDER ORDERS Sodium Chloride (Sodium Chloride Flush 0.9% 10 Ml Syringe) 10 ml IVP 0100,0900,1700 [facility] Last Admin: 10/29/22 00:50 Dose: 10 ml Acetaminophen [Acetaminophen Extra Strength] 1,000 mg PO TID 11/26/21 Albuterol Sulfate [Proair Respiclick] 2 puffs INH Q6H PRN 11/26/21 Budesonide/Formoterol Fumarate [Symbicort 160-4.5 Mcg Inhaler] 2 puffs INH BID 11/26/21 Gabapentin [Neurontin] 200 mg PO BID 11/26/21 Levothyroxine Sodium [Synthroid] 88 mcg PO QDAC 11/26/21 Loperamide [Imodium] 2 mg PO QID PRN 11/26/21 Memantine [Namenda] 10 mg PO BID 11/26/21 Sertraline [Zoloft] 50 mg PO DAILY 11/26/21 Bisacodyl Supp [Dulcolax Supp] [address] DAILY PRN 10/28/22 Mag Hydrox/Al Hydrox/Simeth [Antacid Suspension] 30 ml PO Q4H PRN 10/28/22 Magnesium Hydroxide [Milk of Magnesia] 30 ml PO DAILY PRN 10/28/22 Objective - Vital Signs/Intake & Output Reviewed Vital Signs: Yes Vital Signs: Vital Signs x48h Temp Pulse Resp BP Pulse Ox O2 Flow Rate 10/29/22 04:13 36.9 C 99 16 118/52 L 94 2 10/29/22 00:36 37.2 C 106 H 20 111/60 100 2 Intake & Output: Intake & Output 10/26/22 10/27/22 10/28/22 10/29/22 23:59 23:59 23:59 23:59 Intake Total 936 1031.25 Output Total 750 400 Balance 186 631.25 - Objective General Appearance: positive: No acute distress, Alert, Other (Thin, cachectic elderly female whose BMI is 18. She weighs 54 kg. Just a delightful person) Eyes Bilateral: positive: PERRL, EOMI, Other (The black eye on the right side is starting to fade) ENT: positive: Other (The blood in her hair has been washed away.) Neck: positive: Nml inspection, Thyroid nml, No JVD Respiratory: positive: No respiratory distress. negative: Wheezes, Rales, Rhonchi Cardiovascular: positive: Irregularly irregular, Systolic murmur Abdomen: positive: Non-tender, No organomegaly, Nml bowel sounds, No distention Skin: positive: Warm, Dry Extremities: positive: Full ROM, No pedal edema, Other (Her wound is closed, covered. The skin surrounding it is not red or tender.) Neurologic/Psychiatric: positive: CN's nml (2-12), Motor nml, Disoriented to person, Disoriented to place, Disoriented to time - Lab Results Fish Bones: 10/29/22 05:15 10/29/22 05:15 Other Labs: Lab Results x24hrs 10/29/22 10/29/22 Range/Units 05:15 05:15 WBC 9.9 (4.8-10.8) x10^3/uL RBC 3.35 L (4.20-5.40) 10^6/uL Hgb 10.3 L (12.0-16.0) g/dL Hct 34.9 L (37.0-47.0) % MCV 104.2 H (81.0-99.0) fL MCH 30.7 (27.0-31.0) pg MCHC 29.5 L (32.0-36.0) g/dL RDW 13.7 (12.0-15.0) % Plt Count 139 (130-450) 10^3/uL MPV 10.0 (7.9-10.8) fL Neut # (Auto) 7.7 H (1.5-6.6) 10^3/uL Lymph # (Auto) 1.0 L (1.5-3.5) 10^3/uL [place] # (Auto) 1.1 H (0.0-1.0) 10^3/uL Eos # (Auto) 0.0 (0.0-0.7) 10^3/uL Baso # (Auto) 0.0 (0.0-0.1) 10^3/uL Absolute Nucleated RBC 0.00 x10^3/uL Nucleated RBC % 0.0 /100WBC Sodium 140 (135-145) mmol/L Potassium 4.1 (3.5-5.0) mmol/L Chloride 105 (101-111) mmol/L Carbon Dioxide 28 (21-32) mmol/L Anion Gap 7.0 (6-13) BUN 17 (6-20) mg/dL Creatinine 0.5 (0.4-1.0) mg/dL Estimated GFR (MDRD) 117 (>89) Glucose 98 (70-100) mg/dL Calcium 8.3 L (8.5-10.3) mg/dL Assessment/Plan - Problem List (1) Acute blood loss anemia Impression: Mild and not meeting criteria for transfusion, blood pressure and pulse stable with this. (2) Displaced fracture of right femoral neck Impression: Underwent an uneventful surgery 10/28. She is postop day 1. Orthopedic surgery feels she can be discharged on postop day #2. Plan is for physical therapy to see her today and establish baseline. Due to presumptive diagnosis of osteoporosis, I have started calcium and vitamin D I have spoken to communications planner and let them know she can return to her Memory care unit 10/30 with home health PT/OT. Would can be cleaned and the sutures and revenue enforcement collection agent will fall off on their own. I will have Ortho type up their instructions so they can be included in the dc summary/orders to SNF (3) Contraindication to deep vein thrombosis (DVT) prophylaxis Impression: She has a history of Izaguirre's esophagus, a previous GI bleed for which she was taken off anticoagulation. I am hesitant to give her an nonsteroidal for DVT prophylaxis. Plavix may be an agent that we could use for her for 14 days. It will not affect her stomach and a SILVA-1 or SILVA-2 would, but it will increase her risk of bleeding. But I do not think it would increase it is much as the Lovenox would. I discussed this with pharmacy this morning. If pharmacy feels that the literature is recommending something else, they said that they will get back to me this afternoon. (4) Barretts esophagus Impression: Continue proton pump inhibitor. Check CBC daily. 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 No follow-up as of yet. I do not know if we should follow-up at age 87 with her dementia (6) Dementia Impression: She is on her memory care medication. That includes Zoloft, Namenda. Qualifiers: Dementia type: Alzheimer's Dementia severity: severe Dementia behavioral or psychological symptom: without behavioral, psychotic, or mood disturbance or anxiety Qualified Code(s): F03.C0 - Unspecified dementia, severe, without behavioral disturbance, psychotic disturbance, mood disturbance, and anxiety (6) Dementia Qualifiers: Dementia severity: severe Dementia behavioral or psychological symptom: without behavioral, psychotic, or mood disturbance or anxiety
[2022-10-29] MEDS: CHOLECALCIFEROL 400 UNIT TABLET PO SCH (10:08)
[2022-10-29] MEDS: SERTRALINE 50 MG TABLET PO SCH (10:10)
[2022-10-29] MEDS: GABAPENTIN 100 MG CAPSULE PO SCH ×2 (10:10→21:12)
[2022-10-29] MEDS: CLOPIDOGREL 75 MG TABLET PO SCH (10:11)
[2022-10-29] MEDS: MEMANTINE 5 MG TABLET PO SCH ×2 (10:19→21:12)
--- NOTE | 2022-10-29 11:14 | XRAY Report ---
PROCEDURE: OR C-Arm Procedure INDICATIONS: Right Hip Nail FLUORO TIME: 1:09 MIN TECHNIQUE: Intraoperative fluoroscopic support provided COMPARISON: 10/27/2022. FINDINGS: 3 intraoperative fluoroscopic images were acquired for open reduction and internal fixation of intert rochanteric right femoral neck fracture. No gross hardware complication seen. Anatomic postsurgical a lignment. IMPRESSION: Intraoperative fluoroscopic support for ORIF of small right femoral neck fracture. Please see separat e operative report for further details. Reviewed by: Carlos Eduardo Price MD on 10/29/2022 11:13 AM PST Approved by: Carlos Eduardo Price MD on 10/29/2022 11:13 AM PST Station ID: [id number]
[2022-10-29 11:50] LABS: FERRITIN 399.7 ng/mL (11.0-306.8)
[2022-10-29 11:53] LABS: % IRON SATURATION 8 % (20-50); IRON 20 ug/dL (28-170); TOTAL IRON BINDING CAPACITY 251 ug/dL (250-450); TRANSFERRIN 179 mg/dL (192-382)
[2022-10-29] MEDS: MULTIVITAMIN W/MINERALS TABLET PO SCH (11:53)
[2022-10-29] MEDS: polyethylene glycoL 3350 17 GM PACKET PO SCH (11:53)
[2022-10-29] MEDS: CALCIUM CARBONATE CHEW 500 MG TABLET PO SCH ×2 (11:53→21:12)
[2022-10-29] MEDS: CYANOCOBALAMIN 500 MCG TABLET PO SCH (11:53)
[2022-10-29] MEDS: oxyCODONE 5 MG TABLET PO PRN (13:28)
--- NOTE | 2022-10-29 13:34 | PROVIDER PROGRESS NOTE ---
Subjective - General Admit Date: 10/28/22 Procedure Date: 10/28/22 Post Op Days: 1 Procedure Performed: Open reduction internal fixation intertrochanteric fracture right hip - Review of Systems Wound/Incisions: positive: Dressing dry and intact General: positive: No symptoms Cardiovascular: positive: No symptoms Gastrointestinal: positive: No symptoms Psychiatric: positive: Confusion - Other Other Information/Narrative: This 87-year-old woman is postoperative day 1 following open reduction internal fixation of an intertrochanteric fracture of her right hip. She is up in a chair. She has had some ambulation with maximum assist using a walker. She is alert but remains disoriented to person, place and time. She seems to have minimal pain at bed, moderate pain when moving to chair or when trying to bear weight. Objective - Patient Data Vital Signs: Vital Signs x48h Temp Pulse Resp BP Pulse Ox O2 Flow Rate 10/29/22 09:00 2 10/29/22 07:46 37.1 C 93 15 106/47 L 92 2 Weight: Weight 10/27/22 10/28/22 10/29/22 23:59 23:59 23:59 Weight (kg) 54 kg 54 kg Intake & Output: Intake and Output Totals x24h 10/27/22 10/28/22 10/29/22 23:59 23:59 23:59 Intake Total 936 1271.25 Output Total 750 400 Balance 186 871.25 - Lab Results Lab Results: 10/29/22 05:15 10/29/22 05:15 Other Lab Results: Lab Results x24hrs 10/29/22 10/29/22 10/29/22 Range/Units 05:15 05:15 05:15 WBC (4.8-10.8) x10^3/uL RBC (4.20-5.40) 10^6/uL Hgb (12.0-16.0) g/dL Hct (37.0-47.0) % MCV (81.0-99.0) fL MCH (27.0-31.0) pg MCHC (32.0-36.0) g/dL RDW (12.0-15.0) % Plt Count (130-450) 10^3/uL MPV (7.9-10.8) fL Neut # (Auto) (1.5-6.6) 10^3/uL Lymph # (Auto) (1.5-3.5) 10^3/uL [place] # (Auto) (0.0-1.0) 10^3/uL Eos # (Auto) (0.0-0.7) 10^3/uL Baso # (Auto) (0.0-0.1) 10^3/uL Absolute Nucleated RBC x10^3/uL Nucleated RBC % /100WBC Sodium 140 (135-145) mmol/L Potassium 4.1 (3.5-5.0) mmol/L Chloride 105 (101-111) mmol/L Carbon Dioxide 28 (21-32) mmol/L Anion Gap 7.0 (6-13) BUN 17 (6-20) mg/dL Creatinine 0.5 (0.4-1.0) mg/dL Estimated GFR (MDRD) 117 (>89) Glucose 98 (70-100) mg/dL Calcium 8.3 L (8.5-10.3) mg/dL Iron 20 L (28-170) ug/dL TIBC 251 (250-450) ug/dL % Saturation 8 L (20-50) % Transferrin 179 L (192-382) mg/dL Ferritin 399.7 H (11.0-306.8) ng/mL Vitamin B12 212 (180-914) pg/mL 10/29/22 Range/Units 05:15 WBC 9.9 (4.8-10.8) x10^3/uL RBC 3.35 L (4.20-5.40) 10^6/uL Hgb 10.3 L (12.0-16.0) g/dL Hct 34.9 L (37.0-47.0) % MCV 104.2 H (81.0-99.0) fL MCH 30.7 (27.0-31.0) pg MCHC 29.5 L (32.0-36.0) g/dL RDW 13.7 (12.0-15.0) % Plt Count 139 (130-450) 10^3/uL MPV 10.0 (7.9-10.8) fL Neut # (Auto) 7.7 H (1.5-6.6) 10^3/uL Lymph # (Auto) 1.0 L (1.5-3.5) 10^3/uL [place] # (Auto) 1.1 H (0.0-1.0) 10^3/uL Eos # (Auto) 0.0 (0.0-0.7) 10^3/uL Baso # (Auto) 0.0 (0.0-0.1) 10^3/uL Absolute Nucleated RBC 0.00 x10^3/uL Nucleated RBC % 0.0 /100WBC Sodium (135-145) mmol/L Potassium (3.5-5.0) mmol/L Chloride (101-111) mmol/L Carbon Dioxide (21-32) mmol/L Anion Gap (6-13) BUN (6-20) mg/dL Creatinine (0.4-1.0) mg/dL Estimated GFR (MDRD) (>89) Glucose (70-100) mg/dL Calcium (8.5-10.3) mg/dL Iron (28-170) ug/dL TIBC (250-450) ug/dL % Saturation (20-50) % Transferrin (192-382) mg/dL Ferritin (11.0-306.8) ng/mL Vitamin B12 (180-914) pg/mL - Current Medications Current Medications: Current Medications Generic Name Dose Route Start Last Admin Trade Name April PRN Reason Stop Dose Admin Acetaminophen 650 mg 10/27/22 14:20 10/29/22 06:26 Acetaminophen 325 Mg Tablet PO 650 mg Q4HR PRN Administration Pain 1 to 4, or Fever Calcium Carbonate/Glycine 500 mg 10/28/22 21:00 10/29/22 11:53 Calcium Carbonate Chew 500 Mg Tablet PO 500 mg 1100,2100 MARAL Administration Cholecalciferol 800 unit 10/29/22 09:00 10/29/22 10:08 Cholecalciferol 400 Unit Tablet PO 800 unit DAILY MARAL Administration Clopidogrel Bisulfate 75 mg 10/29/22 09:00 10/29/22 10:11 Clopidogrel 75 Mg Tablet PO 75 mg DAILY MARAL Administration Cyanocobalamin 500 mcg 10/29/22 12:00 10/29/22 11:53 Cyanocobalamin 500 Mcg Tablet PO 500 mcg DAILY MARAL Administration Gabapentin 100 mg 10/28/22 09:00 10/29/22 10:10 Gabapentin 100 Mg Capsule PO 100 mg BID MARAL Administration Potassium Chloride/Sodium Chloride 1,000 mls @ 75 mls/hr 10/28/22 15:00 10/29/22 04:01 Normal Saline 0.9% W/20 Meq Kcl IV 75 mls/hr .[id number] MARAL Administration Levothyroxine Sodium 88 mcg 10/28/22 07:00 10/29/22 06:14 Levothyroxine 88 Mcg Tablet PO 88 mcg QDAC MARAL Administration Memantine 10 mg 10/28/22 21:00 10/29/22 10:19 Memantine 5 Mg Tablet PO 10 mg BID MARAL Administration Morphine Sulfate 2 mg 10/27/22 14:20 10/27/22 17:55 Morphine 2 Mg/Ml Carpuject IVP 2 mg Q2HR PRN Administration Pain 8 to 10 Multivitamins/Minerals 1 tab 10/29/22 12:00 10/29/22 11:53 Multivitamin W/Minerals Tablet PO 1 tab DAILYWM MARAL Administration Oxycodone HCl 5 mg 10/27/22 14:20 10/27/22 22:15 Oxycodone 5 Mg Tablet PO 5 mg Q4HR PRN Administration Pain 5 to 7 Polyethylene Glycol 17 gm 10/29/22 12:00 10/29/22 11:53 Polyethylene Glycol 3350 17 Gm Packet PO 17 gm DAILY MARAL Administration Sertraline HCl 50 mg 10/28/22 09:00 10/29/22 10:10 Sertraline 50 Mg Tablet PO 50 mg DAILY MARAL Administration Sodium Chloride 10 ml 10/27/22 17:00 10/29/22 10:22 Sodium Chloride Flush 0.9% 10 Ml Syringe IVP Not Given 0100,0900,1700 [facility] - Physical Exam Wound/Incisions: positive: Dressing dry and intact General Appearance: positive: No acute distress Neurologic/Psychiatric: positive: Disoriented to person, Disoriented to place, Disoriented to time Comments/Other: She sitting comfortably in chair, alert, speaking easily. Her right hip shows a dry and intact dressing, mild swelling, mild ecchymosis. There is no clinical deformity to right leg. Neurovascular is intact to right leg. She is confused but no change since admission to hospital. Impression/Plan - Problem List Problem List: Status post open reduction internal fixation intertrochanteric fracture right hip The plan is to continue physical therapy, Occupational Therapy and supportive care for her medical issues. 1. Ambulate with walker, needs assistance, weightbearing as tolerated right leg. Both physical therapy and Occupational Therapy will be very helpful 2. Dressing may be left in place for 7 days. She may shower with the dressing in place. There are no sutures to be removed as she has had a subcuticular closure of her incisions. 3. She may be turned or moved in bed without restriction. 4. She should have a return to our orthopedic clinic within 2 to 3 weeks or sooner if having any problems.5. She can be discharged when medically stable and felt to be safe for discharge by our hospitalist, Dr. Webber She should continue with deep venous thrombosis prophylaxis as an outpatient. She has been receiving prophylaxis while in the hospital. This could be continued or use of an oral agent
[2022-10-30] MEDS: ACETAMINOPHEN 325 MG TABLET PO PRN ×3 (01:32→14:11)
[2022-10-30] MEDS: SODIUM CHLORIDE FLUSH 0.9% 10 ML SYRINGE IVP SCH ×2 (02:00→09:03)
[2022-10-30 05:44] LABS: BASOPHILS % (AUTO) 0.5 %; EOSINOPHILS # (AUTO) 0.2 10^3/uL (0.0-0.7); EOSINOPHILS % (AUTO) 2.1 %; HCT - HEMATOCRIT 31.7 % (37.0-47.0); HGB - HEMOGLOBIN 9.7 g/dL (12.0-16.0); LYMPHOCYTES # (AUTO) 1.3 10^3/uL (1.5-3.5); LYMPHOCYTES % (AUTO) 15.4 %; MEAN CORPUSCULAR HEMOGLOBIN 31.2 pg (27.0-31.0); MEAN CORPUSCULAR HGB CONC 30.6 g/dL (32.0-36.0); MEAN CORPUSCULAR VOLUME 101.9 fL (81.0-99.0); MEAN PLATELET VOLUME 10.2 fL (7.9-10.8); MONOCYTES # (AUTO) 0.9 10^3/uL (0.0-1.0); MONOCYTES % (AUTO) 10.9 %; NEUTROPHILS # (AUTO) 5.8 10^3/uL (1.5-6.6); NEUTROPHILS % (AUTO) 70.9 %; PLT - PLATELET COUNT 137 10^3/uL (130-450); RED BLOOD COUNT 3.11 10^6/uL (4.20-5.40); RED CELL DISTRIBUTION WIDTH 13.7 % (12.0-15.0); WHITE BLOOD COUNT 8.1 x10^3/uL (4.8-10.8)
[2022-10-30 05:53] LABS: CALCIUM 8.7 mg/dL (8.5-10.3); CREATININE 0.5 mg/dL (0.4-1.0); POTASSIUM 3.9 mmol/L (3.5-5.0)
[2022-10-30] MEDS: LEVOTHYROXINE 88 MCG TABLET PO SCH (06:33)
[2022-10-30] MEDS ORDERED: SENNA 8.6 MG TABLET PO SCH (09:00)
[2022-10-30] MEDS ORDERED: DOCUSATE SODIUM 250 MG CAPSULE PO SCH (09:00)
[2022-10-30] MEDS: CYANOCOBALAMIN 500 MCG TABLET PO SCH (09:02)
[2022-10-30] MEDS: GABAPENTIN 100 MG CAPSULE PO SCH (09:02)
[2022-10-30] MEDS: SERTRALINE 50 MG TABLET PO SCH (09:02)
[2022-10-30] MEDS: CLOPIDOGREL 75 MG TABLET PO SCH (09:02)
[2022-10-30] MEDS: CHOLECALCIFEROL 400 UNIT TABLET PO SCH (09:02)
[2022-10-30] MEDS: MULTIVITAMIN W/MINERALS TABLET PO SCH (09:02)
[2022-10-30] MEDS: polyethylene glycoL 3350 17 GM PACKET PO SCH (09:03)
[2022-10-30] MEDS: MEMANTINE 5 MG TABLET PO SCH (09:09)
[2022-10-30] MEDS: oxyCODONE 5 MG TABLET PO PRN ×2 (09:14→14:12)
[2022-10-30] MEDS: CALCIUM CARBONATE CHEW 500 MG TABLET PO SCH (10:31)
--- NOTE | 2022-10-30 12:44 | Discharge Plan ---
"Discharge Plan for SNF / [place] - Discharge Plan And Transition Orders Problem Reviewed?: Yes Disposition: 03 SNF DC/Xfer Condition: Stable Allergies and Adverse Reactions: Allergies Allergy/AdvReac Type Severity Reaction Status Date / Time latex AdvReac Mild Unknown Verified 10/27/22 11:17 aspirin AdvReac Unknown Verified 10/27/22 11:17 escitalopram [From Lexapro] AdvReac Unknown Verified 10/27/22 11:17 Health Concerns: The patient has frequent falls at her dementia-care retirement. She fell on her right hip and fractured it. She underwent successful hip surgery by orthopedics. She is returning back to her retirement with an order for home health to do PT, OT with her and have a bath Aide. Plan of Treatment: As above and pain meds as needed. Care Goals: Improvement in symptoms and stabilization are the goals. Assessment: These orders are provided for her SENIOR CARE. - SNF / [place] Transition Orders Admit to (Facility): [facility] Under the care of (Name): Staff provider Discharge Diagnosis: (1) Frequent falls As per Hx. (2) Displaced fracture of right femoral neck S/P successful hip surgery. Needs PT and OT rehab. Referral to a Home Health agency has been placed. (3) Contraindication to deep vein thrombosis (DVT) prophylaxis She has a history of Izaguirre's esophagus, and a previous GI bleed for which she was taken off anticoagulation. (4) Barretts esophagus Stable (5) Acute blood loss anemia From the hip surgery. Hgb dropped from 14 to 9.7, VSS and this did not meeting criteria for transfusion. (6) Pulmonary nodule Present on CT in the past. No follow-up as of yet. We do not know if follow-up is planned, at age 87 with her dementia (7) Hypothyroidism Stable (8) Dementia Stable on her memory care medication, Zoloft and Namenda. A Bath Aide was requested in the referral to a Home Health agency. (9) Severe protein-calorie malnutrition As per Hx. Medicare Certification Statement: Notify PCP of admission and forward orders to primary provider for signature. Other Notification Orders: Call PCP immediately if patient develops dyspnea, chest pain/tightness or edema. House Bowel Program: Yes Additional Bowel Program Orders: If no BM after 2 days, nurse may give M.O.M. 30ml PO PRN and/or ducolax Supp 1 PA and/or GILES 250mg P.O., and/or senna 1-2 tabs PO. On day 3 nurse may give repeat above order until residents constipation is resolved. Annual Influenza Vaccine (between Jul 08 and February 04): Yes Two-step PPD per [facility] [phone] or approved exception documents: Yes Treatments & Other Orders: PT and OT as per the Home Health agency. Orthopedic Orders: 1. Ambulate with walker, needs assistance, weightbearing as tolerated of right leg. Both physical therapy and Occupational Therapy will be very helpful and were ordered. 2. Dressing may be left in place for 7 days. She may shower with the dressing in place. There are no sutures to be removed as she has had a subcuticular closure of her incisions. 3. She may be turned or moved in bed without restriction. 4. She should have a return to our orthopedic clinic within 2 to 3 weeks or sooner if having any problems. 5. She should continue with deep venous thrombosis prophylaxis as an outpatient for 6 weeks, with continued use of an oral agent. Medication Orders: PLEASE REFER TO THE DISCHARGE MEDICATION LIST. Insulin Orders?: No - Medications New Prescriptions: oxyCODONE [Roxicodone] 5 mg PO Q6HR PRN #20 tab PRN Reason: Severe Pain Docusate Sodium 250Mg Capsule [Colace 250Mg Capsule] 250 - 500 mg PO DAILY #30 cap Gabapentin [Neurontin] 100 mg PO BID #60 cap Clopidogrel [Plavix] 75 mg PO DAILY #42 tab Multivitamin W/Minerals [Theragran M] 1 tab PO DAILYWM #30 tab Calcium Carbonate [Tums (Calcium Carbonate 500mg)] 500 mg PO 1100,2100 #60 tab Cyanocobalamin [Vitamin B-12] 500 mcg PO DAILY #30 tab Cholecalciferol [Vitamin D3] 800 unit PO DAILY #30 tab - Diet Type: Geriatric Texture: Regular Liquids: Thin May have monthly special meal: Yes - Therapies | Activity Therapy: Evaluation | Treat if indicated: PT, OT Rehabilitation Potential: Maximize functional status Activity: Activity as Tolerated Weight Bearing: Full Weight Assistance Devices: Walker"
[2022-10-30 12:53] VITALS: BP 106/61
[2022-10-30] MEDS: NS W/20 MEQ KCL 1,000 ML IV SCH (14:47)
--- NOTE | 2022-11-04 21:00 | DISCHARGE SUMMARY ---
Discharge Summary Admit Date: 10/27/22 Discharge Date: 10/30/22 Discharging Provider: Dr Kiana Plunkett Hospitalist for [facility] Primary Care Provider: JORGE Garcia Condition at Discharge: Stable Discharge Disposition: 03 SNF DC/Xfer - HPI History of Present Illness: This is a 87-year-old woman, residential resident with a history of frequent falls, took a fall from standing height today at the residential landing on right side. She hit her head and hip, unable to bear weight on right leg because of pain about right hip and upper thigh. There is no documented history for loss of consciousness, chest pain, shortness of breath or syncope. She has had previous pubic rami fractures many years ago. She is a minimal ambulator, indoor, in residential. She was brought to the emergency room for evaluation following fall. Although she has multiple medical problems, she has been relatively stable. However, she does have a history of dementia, chronic pulmonary disease, hypothyroidism, aortic valve replacement, history of congestive heart failure, atrial fibrillation, history of GI bleeding associated with anticoagulation which has been stopped, and osteoporosis. She has depression, and eating disorder with recent weight loss, low body mass index. She is alert, cooperative. Delightful person. Nursing warn us that she is not always so delightful and can get quite disgruntled. She says that we are making too much of everything. She does hurt in her leg but "not too badly". When asked about chest pain, palpitations, shortness of breath, she shrugs and says that she has had all those things in the past but they are not particularly bothersome right now. She cannot tell us how she ended up on [facility] at a memory care unit. She really minimizes any complaints. Her x-ray showed a comminuted displaced intertrochanteric fracture right hip, osteoarthritis of both hips but not severe, old healed pubic rami fracture on right side and osteopenia. Her power of divorce attorney is her niece who lives in [place], just outside of [place]. An informed consent was obtained to do Orthopedic surgery. - CONSULTS | PROCEDURES Consultations: Dr Webber, Hospitalist - HOSPITAL COURSE Hospital Course: (1) Frequent falls We learned this was her Hx. (2) Displaced fracture of right femoral neck S/P successful hip surgery. Pain meds were ordered. She needs PT and OT rehab. Referral to a Home Health agency was been placed and is to be done back at her Retirement. (3) Contraindication to deep vein thrombosis (DVT) prophylaxis She has a history of Izaguirre's esophagus, and a previous GI bleed, for which she was taken off anticoagulation. (4) Barretts esophagus Stable (5) Acute blood loss anemia From the hip surgery. Hgb dropped from 14 to 9.7, but her VSS and this did not meeting criteria for transfusion. (6) Pulmonary nodule Present on CT in the past. No follow-up has occurred as of yet. We do not know if follow-up is planned, at age 87 with her dementia (7) Hypothyroidism Stable and she was continued on her meds. (8) Dementia Stable on her memory care medications Zoloft and Namenda. A Bath Aide was requested in the referral to a Home Health agency. (9) Severe protein-calorie malnutrition Poor appetite was her Hx. - ALLERGIES Allergies/Adverse Reactions: Allergies Allergy/AdvReac Type Severity Reaction Status Date / Time latex AdvReac Mild Unknown Verified 10/27/22 11:17 aspirin AdvReac Unknown Verified 10/27/22 11:17 escitalopram [From Lexapro] AdvReac Unknown Verified 10/27/22 11:17 - MEDICATIONS Home Medications: Ambulatory Orders Medication Instructions Recorded Confirmed Acetaminophen [Acetaminophen Extra 1,000 mg PO TID 11/26/21 10/28/22 Strength] Albuterol Sulfate [Proair 2 puffs INH Q6H PRN 11/26/21 10/28/22 Respiclick] Budesonide/Formoterol Fumarate 2 puffs INH BID 11/26/21 10/28/22 [Symbicort 160-4.5 Mcg Inhaler] Levothyroxine Sodium [Synthroid] 88 mcg PO QDAC 11/26/21 10/28/22 Loperamide [Imodium] 2 mg PO QID PRN 11/26/21 10/28/22 Memantine [Namenda] 10 mg PO BID 11/26/21 10/28/22 Sertraline [Zoloft] 50 mg PO DAILY 11/26/21 10/28/22 polyethylene glycoL 3350 [Miralax] 17 gm PO DAILY PRN #1 bottle 05/24/22 10/28/22 Bisacodyl Supp [Dulcolax Supp] 10 mg [place] DAILY PRN 10/28/22 10/28/22 Mag Hydrox/Al Hydrox/Simeth 30 ml PO Q4H PRN 10/28/22 10/28/22 [Antacid Suspension] Magnesium Hydroxide [Milk of 30 ml PO DAILY PRN 10/28/22 10/28/22 Magnesia] Calcium Carbonate [Tums (Calcium 500 mg PO 1100,2100 #60 tab 10/30/22 Carbonate 500mg)] Cholecalciferol [Vitamin D3] 800 unit PO DAILY #30 tab 10/30/22 Clopidogrel [Plavix] 75 mg PO DAILY #42 tab 10/30/22 Cyanocobalamin [Vitamin B-12] 500 mcg PO DAILY #30 tab 10/30/22 Docusate Sodium 250Mg Capsule 250 - 500 mg PO DAILY #30 cap 10/30/22 [Colace 250Mg Capsule] Gabapentin [Neurontin] 100 mg PO BID #60 cap 10/30/22 Multivitamin W/Minerals [Theragran 1 tab PO DAILYWM #30 tab 10/30/22 M] oxyCODONE [Roxicodone] 5 mg PO Q6HR PRN #20 tab 10/30/22 - PHYSICAL EXAM AT DISCHARGE General Appearance: positive: No acute distress, Alert, Other (Cachectic elderly female) Eyes Bilateral: positive: Normal inspection, EOMI ENT: positive: ENT inspection nml, No signs of dehydration Neck: positive: Nml inspection, No JVD Respiratory: positive: No respiratory distress, Breath sounds nml Cardiovascular: positive: Regular rate & rhythm, No murmur Abdomen: positive: Non-tender, No distention Skin: positive: Warm, Dry, Pallor Extremities: positive: No pedal edema, Other (bandaged hip) Neurologic/Psychiatric: positive: Disoriented to person, Disoriented to place, Disoriented to time - LABS Result Diagrams: 10/30/22 05:11 10/30/22 05:11 - FOLLOW UP Follow Up: See PCP as per routine plan. - TIME SPENT Time Spent in Discharge (Minutes): 30
== END 2022-10-30 16:40 | DRG 481 ==
LOC: EDUNIT# → ED 11:05 → MS2 10-28 09:10
PROVIDERS: ADMIT Orthopaedic Surgery; ATTEND Orthopaedic Surgery
PROC: 0QS604Z Reposition Right Upper Femur with Internal Fixation Device, Open Approach (ICD-10-PCS; principal; 2022-10-28 12:30)
DX: M80.051A Age-related osteoporosis with current pathological fracture, right femur, initial encounter for fracture (principal); S09.90XA Unspecified injury of head, initial encounter; D62 Acute posthemorrhagic anemia; E46 Unspecified protein-calorie malnutrition; Z68.1 Body mass index [BMI] 19.9 or less, adult; E03.9 Hypothyroidism, unspecified; I48.91 Unspecified atrial fibrillation; I48.20 Chronic atrial fibrillation, unspecified; M19.90 Unspecified osteoarthritis, unspecified site; M06.9 Rheumatoid arthritis, unspecified; I50.9 Heart failure, unspecified; R91.1 Solitary pulmonary nodule; F32.A Depression, unspecified; Y92.10 Unspecified residential institution as the place of occurrence of the external cause; Z20.822 Contact with and (suspected) exposure to COVID-19; F50.9 Eating disorder, unspecified; K22.710 Barrett's esophagus with low grade dysplasia; F03.C0 Unspecified dementia, severe, without behavioral disturbance, psychotic disturbance, mood disturbance, and anxiety; W19.XXXA Unspecified fall, initial encounter; Y92.129 Unspecified place in nursing home as the place of occurrence of the external cause; Z79.52 Long term (current) use of systemic steroids; Z79.890 Hormone replacement therapy; Z79.899 Other long term (current) drug therapy; Z88.8 Allergy status to other drugs, medicaments and biological substances; Z91.040 Latex allergy status; Z95.2 Presence of prosthetic heart valve
CPT/HCPCS: 12011; 36415; 70450; 71045; 72125; 72192; 73502; 80048; 82607; 82728; 83540; 84466; 84484; 85025; 85610; 87633; 90471; 90715; 93005; 96374; 96375; 97162; 97166; 99285; A9270; C1713; J0690; J7120

== ENCOUNTER 2022-11-17 13:53 | Outpatient (CLI) | payer MEDICARE, MEDICAID ==
--- NOTE | 2022-11-18 09:05 | XRAY Report ---
PROCEDURE: Foot 3 View RT INDICATIONS: FOOT PX TECHNIQUE: 3 views of the foot were acquired. COMPARISON: None. FINDINGS: Bones: No fractures or dislocations. No suspicious bony lesions. There is heterogeneous lucency. M [id number] degenerative joint disease in ankle and foot. Soft tissues: No tibiotalar joint effusion. Achilles tendon appears normal. IMPRESSION: 1. Heterogeneous lucency in the bones may be secondary to severe osteoporosis. If clinical symptoms p ersist, advanced imaging such as MRI may be helpful. 2. [id number] degenerative joint disease. Reviewed by: Shelley Spence MD on 11/18/2022 9:04 AM PST Approved by: Shelley Spence MD on 11/18/2022 9:04 AM PST Station ID: [id number]
== END 2022-11-17 13:54 | disposition home or self-care (01) ==
LOC: DI 13:53
PROVIDERS: ATTEND Registered Nurse
DX: M19.071 Primary osteoarthritis, right ankle and foot (principal)

== ENCOUNTER 2022-11-23 14:07 | Outpatient (CLI) | payer MEDICARE, MEDICAID ==
--- NOTE | 2022-11-23 18:48 | XRAY Report ---
PROCEDURE: Hip 2 View RT INDICATIONS: RIGHT HIP ORIF TECHNIQUE: AP pelvis and right hip radiograph. COMPARISON: Pelvis and right hip radiograph 10/27/2022. FINDINGS: Bones: Right femur intramedullary dolores and screw fixation. Improved alignment of the femoral neck fra cture. No dislocation. No suspicious bony lesions. The visualized pelvic ring appears intact. Soft tissues: No suspicious soft tissue calcifications or masses. Arterial vascular calcifications. IMPRESSION: Improved alignment post right hip fracture ORIF. Reviewed by: Sigifredo Galvez MD on 11/23/2022 6:47 PM PST Approved by: Sigifredo Galvez MD on 11/23/2022 6:47 PM PST Station ID: [id number]
== END 2022-11-23 14:08 | disposition home or self-care (01) ==
LOC: DI.WOS 14:07
PROVIDERS: ATTEND Orthopaedic Surgery
DX: S72.142D Displaced intertrochanteric fracture of left femur, subsequent encounter for closed fracture with routine healing (principal)

== ENCOUNTER 2022-12-09 06:24 | Outpatient (CLI) | payer MEDICARE, MEDICAID | END 2022-12-09 06:25 | disposition critical access hospital (66) | LOC: EMS 06:24 | DX: S09.90XA Unspecified injury of head, initial encounter (principal); W18.30XA Fall on same level, unspecified, initial encounter; Y92.129 Unspecified place in nursing home as the place of occurrence of the external cause; F03.90 Unspecified dementia, unspecified severity, without behavioral disturbance, psychotic disturbance, mood disturbance, and anxiety | CPT/HCPCS: A0425; A0429 ==

== ENCOUNTER 2022-12-09 06:44 | Emergency (ER) | payer MEDICARE, MEDICAID ==
[2022-12-09] MEDS ORDERED: LIDOCAINE-EPINEPH-TETRACAINE 3 ML SYRINGE TOP STA (07:19)
--- NOTE | 2022-12-09 09:01 | ED Physician Documentation ---
PD HPI HEAD INJURY - Stated complaint Stated Complaint: GLF - Chief complaint Chief Complaint: Trauma Hd/Nk - History obtained from History obtained from: Other (Nurse report obtained from EMS) - Additional information Additional information: Patient is an 87-year-old female with a history of dementia presenting for evaluation after an unwitnessed fall. She is at a memory care unit and staff heard her fall in her room and found her laying next to her bed. They noted that she had a wound to her head.Patient was recently diagnosed with COVID. She is on Plavix.Patient is ANO x1 at baseline and currently appears to be at her baseline. No further history is obtainable. 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 : None HEENT: None Psych: Depression, Eating disorder Musculoskeletal: Osteoarthritis, Rheumatoid arthritis Derm: None - Past Surgical History Past Surgical History: Yes General: EGD Cardiovascular: Valve replacement - Present Medications Home Medications: Ambulatory Orders Medication Instructions Recorded Confirmed Acetaminophen [Acetaminophen Extra 1,000 mg PO TID 11/26/21 10/28/22 Strength] Albuterol Sulfate [Proair 2 puffs INH Q6H PRN 11/26/21 10/28/22 Respiclick] Budesonide/Formoterol Fumarate 2 puffs INH BID 11/26/21 10/28/22 [Symbicort 160-4.5 Mcg Inhaler] Levothyroxine Sodium [Synthroid] 88 mcg PO QDAC 11/26/21 10/28/22 Loperamide [Imodium] 2 mg PO QID PRN 11/26/21 10/28/22 Memantine [Namenda] 10 mg PO BID 11/26/21 10/28/22 Sertraline [Zoloft] 50 mg PO DAILY 11/26/21 10/28/22 polyethylene glycoL 3350 [Miralax] 17 gm PO DAILY PRN #1 bottle 05/24/22 10/28/22 Bisacodyl Supp [Dulcolax Supp] 10 mg [place] DAILY PRN 10/28/22 10/28/22 Mag Hydrox/Al Hydrox/Simeth 30 ml PO Q4H PRN 10/28/22 10/28/22 [Antacid Suspension] Magnesium Hydroxide [Milk of 30 ml PO DAILY PRN 10/28/22 10/28/22 Magnesia] Calcium Carbonate [Tums (Calcium 500 mg PO 1100,2100 #60 tab 10/30/22 Carbonate 500mg)] Cholecalciferol [Vitamin D3] 800 unit PO DAILY #30 tab 10/30/22 Clopidogrel [Plavix] 75 mg PO DAILY #42 tab 10/30/22 Cyanocobalamin [Vitamin B-12] 500 mcg PO DAILY #30 tab 10/30/22 Docusate Sodium 250Mg Capsule 250 - 500 mg PO DAILY #30 cap 10/30/22 [Colace 250Mg Capsule] Gabapentin [Neurontin] 100 mg PO BID #60 cap 10/30/22 Multivitamin W/Minerals [Theragran 1 tab PO DAILYWM #30 tab 10/30/22 M] oxyCODONE [Roxicodone] 5 mg PO Q6HR PRN #20 tab 10/30/22 - Allergies Allergies/Adverse Reactions: Allergies Allergy/AdvReac Type Severity Reaction Status Date / Time latex AdvReac Mild Unknown Verified 10/27/22 11:17 aspirin AdvReac Unknown Verified 10/27/22 11:17 escitalopram [From Lexapro] AdvReac Unknown Verified 10/27/22 11:17 - Social History Does the pt smoke?: No Smoking Status: Never smoker Does the pt drink ETOH?: No Does the pt have substance abuse?: No - Immunizations Immunizations are current?: Yes - POLST Patient has POLST: Yes PD ED PE NORMAL - General General: No acute distress, Other (Elderly, frail-appearing). No: Alert and oriented X 3 (Alert and oriented to person only) - HEENT HEENT: PERRL, EOMI, Moist mucous membranes, Pharynx benign, Other (1 cm right parietal scalp laceration). No: Atraumatic - Neck Neck: Supple, no meningeal sign, No bony TTP. No: C-Spine cleared by NEXUS criteria - Cardiac Cardiac: RRR - Respiratory Respiratory: No respiratory distress - Abdomen Abdomen: Soft, Non tender - Derm Derm: Warm and dry - Extremities Extremities: No deformity, No tenderness to palpate - Neuro Neuro: billet shearer 2-12 intact, No motor deficit, Normal speech. No: Alert and oriented X 3 (Alert and oriented to baseline) Eye Opening: Spontaneous Motor: Obeys Commands Verbal: Confused GCS Score: 14 Results - Vitals Vitals: Vital Signs - 24 hr 12/09/22 12/09/22 12/09/22 06:52 06:57 08:57 Temperature 36.0 C L Heart Rate 85 84 91 Respiratory 15 17 20 Rate Blood Pressure 137/66 H 137/66 H O2 Saturation 95 91 L 96 12/09/22 09:30 Temperature Heart Rate 85 Respiratory 17 Rate Blood Pressure 120/67 O2 Saturation 98 Oxygen O2 Source Room air Procedures - Laceration (location) Right parietal scalp Length in cm: 1 Wound type: Linear, Clean Anesthesia: LET Wound preparation: Hibiclens, Irrigated copiously NS Skin layer closure: [place] (2) Other: Patient tolerated well, No complications, Tetanus UTD PD Medical Decision Making - ED course Complexity details: reviewed results, re-evaluated patient ED course: Patient from a memory care unit who had an unwitnessed fall. Staff quickly attended to her. She has a small scalp laceration.Due to her dementia CT head and C-spine were ordered. A chest x-ray and pelvis were also reviewed. There are no signs of fracture or other injury. Her wound was cleaned and stapled closed. She appears to be at her baseline with stable vital signs. No focal deficits to suggest a stroke. Patient has no complaints. She does not appear septic.She is able to ambulate again at her baseline.She appears appropriate for discharge back to her memory care facility. [id number] - Per tech, patient was able to ambulate with a walker with no difficulty. Departure - Departure Disposition: 01 Home, Self Care Clinical Impression: Head injury, Laceration of scalp Condition: Stable Instructions: ED Laceration Scalp Stitch Or Stap Comments: You have a scalp laceration that was closed with 2 linda. These should be removed in 1 week on December 16. You can return to the emergency department or go to a walk-in clinic or see your PCP to have the linda removed. Your CT scans of your head and your neck as well as your x-ray of your chest and pelvis do not show any broken bones or internal injuries. Discharge Date/Time: 12/09/22 10:10
--- NOTE | 2022-12-09 10:19 | XRAY Report ---
PROCEDURE: Chest 1 View X-Ray INDICATIONS: modified trauma TECHNIQUE: One view of the chest was acquired. COMPARISON: Chest xray 10/27/22 FINDINGS: Surgical changes and devices: Sternal wires. Lungs and pleura: No pleural effusions or pneumothorax. Lungs are clear. Unchanged right hemidiaph ragn elevation. Mediastinum: Mediastinal contours appear normal. Heart size is enlarged. Bones and chest wall: No suspicious bony lesions. Overlying soft tissues appear unremarkable. Scol iotic curvature is present. IMPRESSION: No acute pulmonary process. Reviewed by: Sherine Rehman MD on 12/09/2022 10:18 AM [facility] Approved by: Sherine Rehman MD on 12/09/2022 10:18 AM [facility] Station ID: [id number]
--- NOTE | 2022-12-09 10:22 | XRAY Report ---
PROCEDURE: Pelvis 1 View INDICATIONS: trauma TECHNIQUE: 1 view(s) of the pelvis acquired. COMPARISON: X-ray 11/23/2022 FINDINGS: Bones: ORIF of the right hip is present. There is relatively good anatomic alignment of previously id entified intertrochanteric fracture. Hardware is intact and alignment is stable. Old right pubic rami fractures are present. Lower lumbar fixation screws are present.. No suspicious bony lesions. Soft tissues: Visualized bowel gas pattern is normal. No suspicious soft tissue calcifications. IMPRESSION: No visualized acute fracture or dislocation. However, occult injury cannot be excluded. Recommend short interval imaging follow-up in 7-10 days as clinically indicated for additional evalua tion. Reviewed by: Sherine Rehman MD on 12/09/2022 10:21 AM [facility] Approved by: Sherine Rehman MD on 12/09/2022 10:21 AM [facility] Station ID: [id number]
[2022-12-09 10:38] VITALS: BP 120/67
--- NOTE | 2022-12-09 10:51 | CT Report ---
PROCEDURE: HEAD WO INDICATIONS: modified trauma TECHNIQUE: Noncontrast 4.5 mm thick angled axial sections acquired from the foramen magnum to the vertex. For r adiation dose reduction, the following was used: automated exposure control, adjustment of mA and/or kV according to patient size. COMPARISON: None. FINDINGS: Image quality: Excellent. The ventricular system and cortical sulci demonstrate atrophy, consistent for patient's stated age. There are areas of hypodensity in the periventricular and subcortical white matter. There is no acut e intra or extra-axial fluid collection. No acute hemorrhage, mass lesion or midline shift. Brainst em is unremarkable. Globes are symmetrical. Sinuses demonstrate bilateral maxillary sinus mucosal thickening.. Osseous st ructures are intact. IMPRESSION: 1. No acute intracranial process. 2. Moderate atrophy and chronic microvascular ischemic changes. The above findings are concordant with preliminary report. Reviewed by: Sherine Rehman MD on 12/09/2022 10:49 AM [facility] Approved by: Sherine Rehman MD on 12/09/2022 10:49 AM [facility] Station ID: [id number]
--- NOTE | 2022-12-09 11:21 | CT Report ---
PROCEDURE: CERVICAL SPINE WO INDICATIONS: modified trauma TECHNIQUE: Noncontrast 3 mm thick sections acquired from the skull base to the T4 level. Sagittal and coronal r eformats were then constructed. For radiation dose reduction, the following was used: automated exp osure control, adjustment of mA and/or kV according to patient size. COMPARISON: CT cervical spine 10/27/2022 FINDINGS: Image quality: Excellent. Bones: No fractures or dislocations. Visualized superior ribs are intact. Multilevel degenerative changes are present. There is trace anterolisthesis of C4 on C5, C6 on C7, C7 on T1. Soft tissues: Prevertebral soft tissues are normal in thickness. No paravertebral hematomas. No ap ical pneumothoraces. Soft tissue calcification is noted surrounding the dens possibly related to deg enerative change or calcium deposition diseases. IMPRESSION: Multilevel degenerative changes without visualized fracture. Reviewed by: Sherine Rehman MD on 12/09/2022 11:20 AM PST Approved by: hSerine Rehman MD on 12/09/2022 11:20 AM PST Station ID: [id number]
== END 2022-12-09 10:10 | disposition home or self-care (01) ==
LOC: EDUNIT# → ED 06:44
DX: S01.01XA Laceration without foreign body of scalp, initial encounter (principal); W19.XXXA Unspecified fall, initial encounter; F03.90 Unspecified dementia, unspecified severity, without behavioral disturbance, psychotic disturbance, mood disturbance, and anxiety; Z79.02 Long term (current) use of antithrombotics/antiplatelets
CPT/HCPCS: 12001; 99283; 99284

== ENCOUNTER 2022-12-09 10:07 | Outpatient (CLI) | payer MEDICARE, MEDICAID | END 2022-12-09 10:08 | disposition home or self-care (01) | LOC: EMS 10:07 | PROVIDERS: ATTEND Emergency Medicine | DX: S01.01XA Laceration without foreign body of scalp, initial encounter (principal); W18.30XA Fall on same level, unspecified, initial encounter; Y92.129 Unspecified place in nursing home as the place of occurrence of the external cause | CPT/HCPCS: A0425; A0428 ==

== ENCOUNTER 2023-01-04 11:33 | Outpatient (CLI) | payer MEDICARE, MEDICAID ==
--- NOTE | 2023-01-04 11:14 | XRAY Report ---
PROCEDURE: Hip 2 View RT INDICATIONS: RIGHT HIP ORIF TECHNIQUE: 3 views of the hip were acquired. COMPARISON: 12/09/2022 FINDINGS: Bones: Right hip ORIF, with intramedullary dolores and trochanteric screw fixation. Similar subluxation o f the dominant proximal femoral fracture fragment. No hardware complication. Healed right pubic ring fracture. Soft tissues: No suspicious soft tissue calcifications or masses. IMPRESSION: Right hip ORIF, without hardware complication. Reviewed by: Brendon Azevedo on 01/04/2023 11:12 AM [facility] Approved by: Brendon Azevedo on 01/04/2023 11:12 AM PST Station ID: [id number]
== END 2023-01-04 11:36 | disposition home or self-care (01) ==
LOC: DI.WOS 11:33
PROVIDERS: ATTEND Orthopaedic Surgery
DX: S72.142A Displaced intertrochanteric fracture of left femur, initial encounter for closed fracture (principal); Z96.641 Presence of right artificial hip joint

== ENCOUNTER 2023-01-07 13:12 | Outpatient (CLI) | payer MEDICARE, MEDICAID ==
--- NOTE | 2023-01-07 16:44 | CT Report ---
PROCEDURE: CHEST WO INDICATIONS: LLL LUNG NODULE TECHNIQUE: Noncontrast 1mm axial images were acquired from the pulmonary apices to the posterior costophrenic an gles. Axial 5 mm soft tissue kernel reconstructions were performed as well as 8 mm axial MIP and cor onal and sagittal 5 mm reformations. For radiation dose reduction, the following was used: automate d exposure control, adjustment of mA and/or kV according to patient size. COMPARISON: 06/03/2022 FINDINGS: Image quality: Excellent. Lungs and pleura: Subpleural septal thickening as before. Findings are most pronounced in the bilate ral upper lobes. Indication the right hemidiaphragm as before. No pleural effusions or pneumothorax. Stable 3 mm right upper lobe nodule (98/series 4). Stable subpleural 7 mm ground glass nodule in the posterior right lower lobe (141/series 4). A new 10 mm irregular nodule versus atelectasis noted in the periphery of the right lower lobe (170/s eries 4). Mild however moderate bibasilar atelectasis in the right lower lobe. Interval collapse of the medial segments of the left lower lobe likely related to plugging of the airways. Minimal aeration of the le ft lower lobe more peripherally. No definite mass lesion identified. Remainder of the visualized cent ral and peripheral airways appear patent. Mediastinum: Heart size is normal. Moderate atherosclerotic calcifications of the coronary arteries. No pericardial effusion. No mediastinal adenopathy by size criteria. No hilar adenopathy. Thoracic aorta and central pulmonary arteries are normal in size. Dense atherosclerotic calcificati ons of the thoracic aorta. Esophagus is normal in caliber. No hiatal hernia. Bones and chest wall: No suspicious bony lesions. No acute vertebral body compression fractures. Multilevel thoracic spondylosis. Findings are most pro nounced at the thoracolumbar junction. No axillary or supraclavicular adenopathy by size criteria. Thyroid is unremarkable in appearance. Abdomen: Visualized upper abdominal solid organs appear unremarkable. Visualized portions of lou l in the upper abdomen appear unremarkable. Status post cholecystectomy. IMPRESSION: Interval development of intraluminal filling material involving the medial, basilar airways of the le ft lower lobe with associated collapse of the affected left lower lobe segments possibly related to m ucous plugging. No suspicious mass lesion identified. There is mild aeration of the peripheral left l ower lobe. Right upper and right lower lobe nodules are not significantly changed. Possible new 10 mm right lowe r lobe irregular pulmonary nodule versus atelectasis with increased dependent atelectasis of the righ t lung base. Atherosclerosis. Recommend short interval follow-up CT in 3 months to document stability versus resolution. CLINICAL RECOMMENDATION STATEMENTS: In patients <35 years with an ITN detected on CT, MRI, or extrathyroidal ultrasound, the Committee re commends further evaluation with dedicated thyroid ultrasound if the nodule is "e1 cm and has no susp icious imaging features, and if the patient has normal life expectancy. In patients "e35 years with an ITN detected on CT, MRI, or extrathyroidal ultrasound, the Committee r ecommends further evaluation with dedicated thyroid ultrasound if the nodule is "e1.5 cm and has no s uspicious imaging features, and if the patient has normal life expectancy. (ACR, 2014) Reviewed by: Carlos Eduardo Price MD on 01/07/2023 4:43 PM PST Approved by: Carlos Eduardo Price MD on 01/07/2023 4:43 PM PST Station ID: [id number]
== END 2023-01-07 13:13 | disposition home or self-care (01) ==
LOC: DI 13:12
PROVIDERS: ATTEND Nurse Practitioner Family
DX: R91.8 Other nonspecific abnormal finding of lung field (principal); J98.11 Atelectasis; I25.10 Atherosclerotic heart disease of native coronary artery without angina pectoris; I70.0 Atherosclerosis of aorta